=== PATIENT | female | born 1945 | race Caucasian/White ===

== ENCOUNTER 2017-09-14 18:57 | Emergency (ER) | payer MEDICARE, SELFPAY ==
[2017-09-14 18:59] VITALS: BP 187/105; PULSE 119; RESP 17; TEMP 36.2; O2SAT 98; BMI 32.2
[2017-09-14] MEDS: cloNIDine HCl 0.1 MG Tablet 0.2 MG PO (19:34)
[2017-09-14] MEDS: Tetracaine 0.5% Ophthalmic Bottle 1 DRP EACH EYE (20:18)
[2017-09-14 20:21] VITALS: BP 121/83; PULSE 89; RESP 16
--- NOTE | 2017-09-14 20:42 | ED.VISSUMM ---
- ER Visit Summary Date of Service: 09/14/17 Chief Complaint: Elevated blood pressure and eye pain History of Present Illness: The patient is a 72 F presenting with elevated blood pressure and bilateral eye pain. Patient states she was recently started on hydrochlorothiazide on August 30. Yesterday she began to have gradual onset headache associated with bilateral eye pain. She denies vision changes. She denies current headache. She states she has pain in both of her eyes. She states she read the label on the hydrochlorothiazide side effects and was concerned about possibility of eye problems related to the medication. She denies chest pain or shortness of breath. Denies other complaints. Physical Examination: Vitals are stable. Blood pressure 187/105. Patient is afebrile. Alert no acute distress. HEENT exam is unremarkable. PERRLA, EOMI. Neck is supple. Lungs are clear and equal bilaterally. Heart is regular rate and rhythm. Abdomen is soft nontender nondistended. Extremities are unremarkable. Skin is warm and dry. No focal neurologic deficit. Remainder of exam is unremarkable. Emergency Department Course and Treatment: Patient was given clonidine p.o. Her repeat blood pressure was 121/83. Tetracaine was instilled into her bilateral eyes and she had complete resolution of her pain. Intraocular pressures were checked and on the right are 8-13, left were 8-11. Her visual acuity was 20/40 on the right, 20/50 on the left, 20/25 bilaterally. She states typically her left eye is worse than the right. She denies any change from her baseline vision. She feels improved following tetracaine. Discussed with Dr. Ramirez. He states likely the hydrochlorothiazide has caused dry eyes. She is advised to use saline eyedrops. Advised to return to ED for any worsening vision or complaints. Advised to follow-up with Dr. Ramirez. Advised to follow-up with her primary care physician for blood pressure recheck. Disposition: Discharge home Impression: Hypertension, bilateral eye pain This note was generated with [employer] dictation software. It may contain incorrect words, spelling, and punctuation that were not noted in review of the chart prior to signing ED Disposition - Plan for ED Patient: Chief Complaint: Hypertension Referrals: Trudy Mcgowan MD [Primary Care Provider] -
--- NOTE | 2017-09-14 20:46 | ED.DEP ---
ED Disposition - Plan for ED Patient: Chief Complaint: Hypertension Instructions: ED HTN Established Referrals: Trudy Mcgowan MD [Primary Care Provider] - Honorio Ramirez MD [STAFF PHYSICIAN] -
[2017-09-14 20:50] VITALS: RESP 16
== END 2017-09-14 20:53 | disposition home or self-care (01) ==
LOC: ED 19:55
PROVIDERS: Emergency Provider Emergency Medicine; Family Provider Internal Medicine; PCP Internal Medicine
DX: H57.13 Ocular pain, bilateral (principal); I10 Essential (primary) hypertension; Z79.899 Other long term (current) drug therapy; Z72.0 Tobacco use
CPT/HCPCS: 99283

== ENCOUNTER → 2018-03-05 10:36 | Outpatient (CLI) | payer MEDICARE, SELFPAY | PROVIDERS: Family Provider Internal Medicine; PCP Internal Medicine; Visit Provider Nurse Practitioner | DX: R42 Dizziness and giddiness (principal) | CPT/HCPCS: 76770 ==

== ENCOUNTER → 2018-03-07 09:31 | Outpatient (CLI) | payer MEDICARE, SELFPAY ==
--- NOTE | 2018-03-07 09:48 | CDU_ITS ---
Reason For Study: dizziness Rt. Velocities/BP Lt. Velocities/BP Prox CCA 77.4/18.2 cm/sec. Prox CCA 75.0/17.3 cm/sec. Mid CCA 79.2/19.9 cm/sec. Mid CCA 89.7/27.0 cm/sec. Dist CCA 70.9/24.6 cm/sec. Dist CCA 83.8/24.6 cm/sec. Prox ICA 85.0/24.0 cm/sec. Prox ICA 73.9/20.5 cm/sec. Mid ICA 95.0/32.2 cm/sec. Mid ICA 79.2/29.3 cm/sec. Dist ICA 83.8/28.7 cm/sec. Dist ICA 82.1/33.7 cm/sec. Rt. ICA/CCA = 95.0/79.2=1.19. Lt. ICA/CCA = 82.1/89.7=0.92. Prox ECA 79.7/11.7 cm/sec. Prox ECA 83.8/13.5 cm/sec. Rt. Vert. 64.0/19.6 cm/sec. Lt. Vert. 54.8/20.7 cm/sec. Right Extracranial There is intimal thickening but no significant atherosclerotic plaque noted in the right common carotid artery. There is homogeneous, smooth atherosclerotic plaque noted in the right internal carotid artery. There is no significant atherosclerotic plaque noted in the right external carotid artery. Antegrade flow is noted in the right vertebral artery. There is homogeneous, smooth atherosclerotic plaque noted in the right bulb. Left Extracranial There is intimal thickening but no significant atherosclerotic plaque noted in the left common carotid artery. There is heterogeneous, smooth atherosclerotic plaque noted in the left internal carotid artery. There is intimal thickening but no significant atherosclerotic plaque noted in the left external carotid artery. Antegrade flow is noted in the left vertebral artery. Procedure Carotid Duplex [id number]. The exam was diagnostic. Exam performed in department. Interpretation Summary Mild (<50%) stenosis right extracranial internal carotid. Mild (<50%) stenosis left extracranial internal carotid. Flow within the vertebral arteries is antegrade bilaterally. Ordering Physician: Shaneka Anderson Referring Physician: Shaneka Anderson Performed By: Noemy Feng, GENNA, RVT
== END ==
PROVIDERS: Family Provider Internal Medicine; PCP Internal Medicine; Visit Provider Internal Medicine
DX: R42 Dizziness and giddiness (principal); R07.89 Other chest pain
CPT/HCPCS: 93306; 93880

== ENCOUNTER → 2018-03-17 06:05 | Outpatient (CLI) | payer MEDICARE, SELFPAY ==
--- NOTE | 2018-03-17 06:11 | RDU_ITS ---
Reason For Study: HTN Right Renal Artery Left Renal Artery Right renal artery ostium 89/27 Left renal artery ostium 94/27 RSV/EDV. PSV/EDV. Right renal artery proximal 83/26 Left renal artery proximal PSV/EDV PSV/EDV. 99/27 . Right renal artery mid 174/44 Left renal artery mid 86/25 PSV/EDV. PSV/EDV . Right renal artery distal 69/21 Left renal artery distal 62/21 PSV/EDV. PSV/EDV. Right RAR 2.60. Left RAR 1.48. Right Renal Parenchyma Left Renal Parenchyma Upper Pole Medula 35/14 PSV/EDV. Left upper pole medulla 12/4 Right upper pole medulla EDR 0.4 . PSV/EDV . Right upper pole medulla R.I. Left upper pole medulla EDR 0.33 . 0.59 . Left upper pole medulla R.I. 0.67 . Upper Mundo Cortx 14/6 PSV/EDV. UP Cortex 26/7 PSV/EDV. Right upper pole cortex EDR 0.43 . Left upper pole cortex EDR 0.27 . Right upper pole cortex R.I. 0.62 . Left upper pole cortex R.I. 0.74 . Right lower Pole medulla 25/7 Left lower Pole medulla 38/12 PSV/EDV . PSV/EDV . Right lower pole medulla EDR 0.28 . Left lower pole medulla EDR 0.32 . Right lower pole medulla R.I. Left lower pole medulla R.I. 0.70 . 0.70 . Lower Pole Cortx 21/6 PSV/EDV. Lower Pole Cortex 15/7 PSV/EDV. Left lower pole cortex EDR 0.29 . Right lower pole cortex EDR 0.47 . Left lower pole cortex R.I. 0.72 . Right lower pole cortex R.I. 0.56 . Left Renal Hilar Right Renal Hilar LT Hilar avg 68/20 PSV/EDV . Right Hilar avg 56/16 PSV/EDV. Left hilar acceleration time 37 Right hilar acceleration time 29 m/sec. m/sec. Left Renal Dimensions Right Renal Dimensions Left kidney size 9.8 cm . Right kidney size 9.1 cm . Left cortical dimension 1.36 cm . Right cortical dimension 1.41 cm . Aorta Proximal abdominal aorta 1.88cm x 1.87 cm . Proximal abdominal aorta peak systolic velocity is 67 cm/sec . Distal abdominal aorta 1.42cm x 1.48 cm . Distal abdominal aorta peak systolic velocity is 135 cm/sec . Interpretation Summary Dimensions of the intra-abdominal aorta appear normal, without evidence of aneurysmal dilatation. Renal artery velocities are bilaterally normal. Acceleration times are normal bilaterally. Renal- aortic ratios are also bilaterally normal. There is no evidence of hemodynamically significant renal artery stenosis on either side. Cortical dimensions are bilaterally normal. Kidneys appear normal in size bilaterally. Ordering Physician: Stephanie Carson Referring Physician: Shaneka Anderson Performed By: Jenna Alvarez, RDCS, RVT
--- NOTE | 2018-03-17 16:13 | STRESSREP ---
Stress Test Report Exercise myocardial perfusion stress test. 72-year-old lady with a history of chest pain. Stress protocol: Resting EKG demonstrates normal sinus rhythm with rate of 62 bpm resting blood pressure 730/90 mmHg. The patient exercised according to regular Kev protocol for total duration of 5 minutes completing 2 minutes into stage II of the Kev protocol the maximum heart rate attained was 141 bpm which was 96% of maximum predicted heart rate the maximum workload was 7 metabolic equivalents. Patient maintained sinus rhythm throughout the recording. At rest there were no ST or T-wave changes noted suggest ischemia peak exercise no ST or T-wave changes were noted suggest ischemia. No clinical angina was noted. The test was terminated due to leg fatigue. Myocardial perfusion protocol. 11.9 mCi of technetium 99m sestamibi was injected at rest. The patient exercised according to regular Kev protocol for 5 minutes. At peak exercise 33.6 mCi of technetium 99m sestamibi was injected stress images were obtained stress and rest images were reconstructed and compared in the short axis vertical long horizontal long axis. Gated images were also obtained Perfusion SPECT analysis: Review of the stress images demonstrate normal uptake of tracer noted in all areas of the myocardium. The resting images similarly demonstrate normal uptake of tracer noted in all areas of the myocardium. No areas of reversibility are noted suggest ischemia no previous infarct is noted. Gated SPECT analysis: The gated ejection fraction is hyperdynamic at 87%. Conclusion: Normal exercise myocardial perfusion stress test at a moderate workload. Good functional capacity.
== END ==
PROVIDERS: Family Provider Internal Medicine; PCP Internal Medicine; Visit Provider Nurse Practitioner
DX: I10 Essential (primary) hypertension (principal); R07.89 Other chest pain; R42 Dizziness and giddiness
CPT/HCPCS: 78452; 93017; 93975; A9500; A4216

== ENCOUNTER → 2018-04-03 12:28 | Outpatient (CLI) | payer MEDICARE, SELFPAY ==
--- NOTE | 2018-04-03 12:32 | CT_ITS ---
STUDY: LOW DOSE CT LUNG CANCER SCREENING REASON FOR EXAM: Female, 72 years old. COPD, history of tobacco use. Lung cancer screening. RADIATION DOSAGE (If Supplied By Facility): CTDIvol = ( 3.02 ) mGy, DLP = ( 93.65 ) mGycm TECHNIQUE: No contrast was administered. Low dose technique was utilized (average mAS-38 and kVp 120). 1.25 mm axial source images with a slice interval of 1.25-mm were reconstructed in lung windows. Coronal and sagittal 2-D MPR. Nodule measured using lung windows on PACS and/or independent workstation with automated measurement of minimum and maximum diameter. Nodule measurement reported as average diameter rounded to the nearest whole number. Growth is defined as an increase ins size of greater than 1.5 mm. COMPARISON: CT abdomen and pelvis 04/01/2017. FINDINGS: Total lung nodules (excluding granulomas): Right upper lobe lateral subpleural pulmonary nodule series 2 image 64, 3.2 mm. There are several tiny calcified pulmonary nodules bilaterally, old granulomatous disease. There are no visible noncalcified pulmonary nodules on the left. Emphysema: There are relatively mild features of centrilobular emphysema predominating at the lung apices, with generalized hyper inflation of the lungs suggesting underlying COPD. Endobronchial lesion: There is mild bronchial wall thickening in both the upper and lower lungs, likely chronic inflammatory. No endobronchial lesions. Aorta: Nondilated. Mild arch atherosclerosis. Coronary arteries: Coronary calcifications of the proximal LAD, none visible in the RCA or circumflex distributions. Heart: Normal heart size without pericardial effusion. Pulmonary artery: Nondilated. Mediastinal nodes: No mediastinal or hilar mass or lymphadenopathy. Normal esophagus. Other chest and abdominal findings: Upper abdomen, body wall soft tissues, supraclavicular soft tissues and osseous structures exhibit no acute process. CT/Low Dose CT Lung Screening IMPRESSION: Solitary noncalcified pulmonary nodule in the right. Less than 6 monitor. ACR Lung RADS Category 2 (benign appearance, less than 1% chance of malignancy). Continue annual screening low dose CT. Coronary atherosclerosis. Centrilobular emphysema. IMPORTANT NOTES FOR USE: ACR Lung-RADS Version 1.0 Assessment Categories Release Date: October 26, 2013 Category: Coded 0-4 bases on nodule(s) with highest degree of suspicion. Negative screen is defined as categories 1 and 2; a positive screen is defined as categories 3 and 4. Category 3 and 4A nodules that are unchanged on interval CT should be coded as category 2, and individuals returned to screening in 12 months. Category 4X: Category 3 or 4 nodules with additional imaging findings that increase the suspicion of lung cancer, such as spiculation, GGN that doubles in size in 1 year, enlarged lymph notes, etc. Category Modifiers: S (significant finding unrelated to lung cancer) and C (prior history of treated lung cancer) may be added to the 0-4 Lung-RADS Electronically Signed: Rodney Miller, at 12:56 EDT Tel , Service support ,
--- NOTE | 2018-04-03 15:01 | PFTCOMP ---
COMPLETE PULMONARY FUNCTION TEST INTERPRETATION Brief HPI: Patient is a 72 year old female, currently under the care of Dr. Anderson, who presents to [facility] for complete pulmonary function tests secondary to diagnosis of COPD. Respiratory therapist reports good effort and reproducible results. Interpretation: Forced expiration spirometry shows a mild large airways obstructive ventilatory defect with an FEV1 of 84% predicted. There is no significant bronchodilator response by ATS criteria. Spirograms are of good quality and plateau slowly, indicating slowly emptying areas of the lungs. The respiratory flow volume loop shows decreased expiratory flow rates at all lung volumes consistent with airway obstruction. Lung volumes by body plethysmography show a normal total lung capacity at 4.89 L, 117% predicted. FRC and RV are elevated out of proportion. Lung volume measurements are consistent with hyperinflation and air-trapping. Diffusion capacity by carbon monoxide is at the lower limit of normal at 59% predicted. The airway resistance is elevated. No previous pulmonary function tests were available for review. Impression: Irreversible mild large airways obstructive ventilatory defect with a reduction in diffusing capacity, resulting in air trapping with hyperinflation, and consistent with patient's diagnosis of COPD.
== END ==
PROVIDERS: Family Provider Internal Medicine; PCP Internal Medicine; Referring Provider Internal Medicine; Visit Provider Internal Medicine
DX: Z87.891 Personal history of nicotine dependence (principal); J44.9 Chronic obstructive pulmonary disease, unspecified; I27.20 Pulmonary hypertension, unspecified
CPT/HCPCS: 94060; 94726; 94729; G0297

== ENCOUNTER → 2018-10-02 15:14 | Outpatient (CLI) | payer MEDICARE, SELFPAY ==
--- NOTE | 2018-10-02 15:17 | BI_ITS ---
MAMMOGRAPHY - BILATERAL SCREENING REASON FOR EXAM: Female, 73 years old. Routine annual screening examination. PERTINENT HISTORY: Non-contributory. Remote bilateral excisional breast biopsies. TECHNIQUE: Digital bilateral breast devaughn (3D mammographic acquisition) in the CC and MLO projections. 2-D mediolateral oblique (MLO) and craniocaudad (CC) views of both breasts were obtained. CAD: Full Field Digital Mammography with Computer Added Detection was performed. COMPARISON: Comparison is made with prior outside examination dated August 21, 2017. FINDINGS: Breast Composition: The breasts are almost entirely fatty. There are no dominant masses or suspicious calcifications. Stable appearance of the benign axillary lymph nodes. No other significant abnormalities are identified. There has been no significant change since the prior study. BI/SCREENING MAMM (CAD), BILAT IMPRESSION: Stable bilateral screening mammogram. Yearly follow-up mammogram recommended. (A) ASSESSMENT CATEGORY: BIRADS Category 2: Benign. A letter regarding these results will be sent to the patient by the facility within 30 days. Approximately 10% of breast cancers are not detected by mammography. A normal mammogram should not delay biopsy of a clinically suspicious abnormality. [id number] Electronically Signed: Javon Matute, at 8:18 EDT , Service support ,
== END ==
PROVIDERS: Family Provider Internal Medicine; PCP Internal Medicine; Referring Provider Internal Medicine; Visit Provider Internal Medicine
DX: Z12.31 Encounter for screening mammogram for malignant neoplasm of breast (principal)
CPT/HCPCS: 77063; 77067

== ENCOUNTER → 2019-05-07 | Outpatient (CLI) | payer MEDICARE, SELFPAY ==
[2018-05-01 10:35] VITALS: BMI 32.2
--- NOTE | 2019-05-07 13:30 | PFT ---
INTRODUCTION: The patient is a 73-year-old female that presents for pulmonary function studies secondary to a diagnosis of COPD. Respiratory therapy reports good patient effort. Bronchodilators were used during testing. INTERPRETATION: Forced expiration spirometry demonstrates the presence of a mild large airways obstructive ventilatory defect. There was no significant response to aerosolized bronchodilators, based upon strict ATS criteria. Spirograms are of fair quality and plateau gradually indicating slow emptying of the lungs. Body plethysmography was performed and reveals an elevated TLC and RV, indicative of underlying hyperinflation and air trapping. Diffusing capacity by single breath CO is reduced at 56% of predicted. IMPRESSION: Irreversible mild large airways obstructive ventilatory defect with associated hyperinflation, air trapping and reduction in diffusing capacity.
== END | disposition home or self-care (01) ==
LOC: PSN 09:33
PROVIDERS: Family Provider Internal Medicine; PCP Internal Medicine; Referring Provider Internal Medicine Critical Care Medicine; Visit Provider Internal Medicine Critical Care Medicine
DX: J44.9 Chronic obstructive pulmonary disease, unspecified (principal)
CPT/HCPCS: 94060; 94726; 94729

== ENCOUNTER → 2019-05-09 | Outpatient (CLI) | payer MEDICARE, SELFPAY ==
--- NOTE | 2019-05-09 07:00 | CT_ITS ---
STUDY: CT CHEST WITHOUT CONTRAST REASON FOR EXAM: Female, 73 years old. Hypertension, lung nodule RADIATION DOSAGE (If Supplied By Facility): CTDIvol = ( 13.5 ) mGy, DLP = ( 468.88 ) mGycm TECHNIQUE: Transaxial imaging was performed without the administration of intravenous contrast material. Multiplanar coronal and sagittal images were reformatted. Individualized dose optimization techniques were used for this CT. COMPARISON: 04/03/2018 FINDINGS: Lung windows show that a previously described right upper lobe subpleural nodule measuring 3.2 mm has anything decreased in size since the previous study. It is measuring 1 mm on the current study seen on axial images 35 no other suspicious noncalcified mass or nodule. No organized infiltrate or effusion. The lungs are otherwise normal. There is no demonstrated pleural abnormality. Normal heart and pericardium. There are calcifications of the coronary arteries. Normal mediastinum. Normal hilar regions. Normal unenhanced pulmonary arteries. Normal aorta arch and descending thoracic aorta. There are multi-level degenerative changes of the thoracic spine. There is no demonstrated abnormality of the visualized upper abdomen. CT/Chest without Contrast IMPRESSION: A previously described right upper lobe nodule has if anything decreased in size since the previous study. No acute pulmonary process Calcified coronary vessels Degenerative bony changes Electronically Signed: Dmitri Wesley MD at 8:00 EST , Service support ,
== END | disposition home or self-care (01) ==
LOC: CT 07:01
PROVIDERS: Family Provider Internal Medicine; PCP Internal Medicine; Referring Provider Internal Medicine Critical Care Medicine; Visit Provider Internal Medicine Critical Care Medicine
DX: J44.9 Chronic obstructive pulmonary disease, unspecified (principal)
CPT/HCPCS: 71250

== ENCOUNTER 2019-08-08 13:19 | Emergency (ER) | payer MEDICARE, SELFPAY ==
[2019-05-12 10:04] VITALS: BMI 32.5
[2019-08-08 13:19] VITALS: BP 148/103; PULSE 102; RESP 18; TEMP 36.7; O2SAT 99; BMI 31.4
--- NOTE | 2019-08-08 14:13 | ED.VIS.GEN ---
History of Present Illness Chief Complaint: Edema Detail of Chief Complaint: Swelling and pain over left parotid gland Informant: Patient Onset: Yesterday Context: Sudden Onset Timing: Continuous Quality: Pain and swelling Location: Left preauricular area, parotid gland Current Severity: Mild Maximum Severity: Moderate Worsened by: Eating Relieved by: Nothing Associated Symptoms: None Narrative: Patient is a 74-year-old woman who presents with abrupt onset of pain and swelling localized over the left parotid gland. She denies fever chills. Denies difficulty opening closing her mouth. She denies change in voice. She is not on TAYLA inhibitor. Complains of blood from left ear. She did use a Q-tip prior to the bleeding. Prior similar symptoms: No Recent Illness/Hospitalization: No - Past Medical History (1) Chest pain Status: Acute (2) COPD (chronic obstructive pulmonary disease) Status: Chronic (3) Carotid stenosis, bilateral Status: Chronic (4) Diastolic dysfunction Status: Chronic (5) Graves disease Status: Chronic (6) HTN (hypertension), benign Status: Chronic (7) Pulmonary HTN Status: Chronic (8) Smoker Status: Chronic (9) History of tonsillectomy Status: Resolved (10) History of tubal ligation Status: Resolved (11) cataract surgery Status: Resolved Past Medical History - Allergies and Home Meds Allergies/Adverse Reactions: Allergies bupropion [From Zyban] Allergy (Intermediate, Verified 08/08/19 13:21) Rash hydrochlorothiazide Allergy (Intermediate, Verified 08/08/19 13:21) vision changes nabumetone Allergy (Intermediate, Verified 08/08/19 13:21) Rash tramadol [From Ultram] Allergy (Intermediate, Verified 08/08/19 13:21) Rash Primary Care Physician: Shaneka Anderson DO [Primary Care Provider] - Prior records reviewed: Yes Lives: Alone Smoking Status: Current every day smoker Alcohol: None Drugs: None Review of Systems General: Denies: Chills, Fever, Malaise, Subjective, Sweats Eyes: Denies: Visual changes - bilaterally, Blurred Vision - bilaterally, Diplopia ENT: Denies: Bilateral ear pain, Left ear pain, Right ear pain, Rhinorrhea, Sore throat Cardiovascular: Denies: Chest pain, Palpitations Respiratory: Denies: Dyspnea, Cough, Dyspnea on exertion Gastrointestinal: Denies: Nausea, Vomiting Skin: Denies: Rash, Abscess, Abrasions Hematologic: Denies: Easy bruising, Easy bleeding Allergy: Denies: Uticaria, Swelling of the mouth, Swelling of the tongue Physical Exam Vital Signs/Narrative: Vital Signs Temp Pulse Resp BP Pulse Ox 08/08/19 13:19 98.1 F 102 H 18 148/103 H 99 Inital Vital Signs reviewed: Yes General: Well nourished, Well developed, No Acute Distress Head: Normocephalic, Atraumatic Eyes: Perrl. Negative for: Pale conjunctiva, Scleral icterus ENT: Moist mucous membranes, No rhinorrhea, TM's clear, - - There is trauma to the left auditory canal. This is the cause of her bleeding. There is tenderness and swelling over the left parotid. There is no drainage with milking of the parotid noted. Neck: Supple, Nontender, No lymphadenopathy, No JVD, - - He is midline. There is no inspiratory expiratory stridor. Is no evidence of angioedema. Cardiovascular: Regular rate, Regular rhythm, No murmurs, Normal S1, Normal S2 Respiratory: No distress, CTA bilaterally, Chest nontender Neurological: Alert, Oriented x3, Cranial nerves II-XII grossly intact, Normal Strength, Normal Sensation Psychological: Normal affect, Normal Mood Diagnostic/Tx/Re-eval - Medical Decision Making Onset of pain and swelling over the parotid gland suspect patient has sialolithiasis. She was informed the cause of the blood from her left ear is secondary to trauma using a Q-tip. She was referred to ENT. ED Disposition - Plan for ED Patient: Disposition: Home or Assisted Living Diagnosis: Sialolithiasis, Trauma left external auditory canal Referrals: Shaneka Anderson DO [Primary Care Provider] - Juan Carlos Adams MD [STAFF PHYSICIAN] - 3-5 Days Additional Instructions: You have swelling of your left parotid gland. Suspect this is secondary to a stone causing obstruction. Treatment is to suck on lemon drops. The bleeding from your ear is secondary to trauma. Recommend not trying to clean your ear out with Q-tip.
== END 2019-08-08 14:35 | disposition home or self-care (01) ==
LOC: ED 14:26
PROVIDERS: Emergency Provider Emergency Medicine; PCP Internal Medicine
DX: K11.5 Sialolithiasis (principal); J44.9 Chronic obstructive pulmonary disease, unspecified; I10 Essential (primary) hypertension; F17.200 Nicotine dependence, unspecified, uncomplicated; E05.00 Thyrotoxicosis with diffuse goiter without thyrotoxic crisis or storm; Z79.82 Long term (current) use of aspirin; Z79.899 Other long term (current) drug therapy; S09.91XA Unspecified injury of ear, initial encounter; X58.XXXA Exposure to other specified factors, initial encounter; Y93.89 Activity, other specified; Y92.009 Unspecified place in unspecified non-institutional (private) residence as the place of occurrence of the external cause; Y99.8 Other external cause status
CPT/HCPCS: 99282

== ENCOUNTER → 2019-08-11 | Outpatient (CLI) | payer MEDICARE, SELFPAY ==
[2019-08-08 13:19] VITALS: BMI 31.4
== END | disposition home or self-care (01) ==
LOC: LABSPEC 15:16
PROVIDERS: PCP Internal Medicine; Referring Provider Otolaryngology; Visit Provider Otolaryngology
DX: K11.21 Acute sialoadenitis (principal)
CPT/HCPCS: 87070

== ENCOUNTER → 2019-12-03 | Outpatient (CLI) | payer MEDICARE, SELFPAY ==
--- NOTE | 2019-12-03 14:26 | BI_ITS ---
MAMMOGRAPHY - BILATERAL SCREENING REASON FOR EXAM: Female, 74 years old. Routine annual screening examination. PERTINENT HISTORY: Non-contributory. TECHNIQUE: Digital bilateral breast odalis (3D mammographic acquisition) in the CC and MLO projections. 2-D mediolateral oblique (MLO) and craniocaudad (CC) views of both breasts were obtained. CAD: Full Field Digital Mammography with Computer Added Detection was performed. COMPARISON: Comparison is made with prior study dated October 02, 2018. FINDINGS: Breast Composition: The breasts are almost entirely fatty. There are no dominant masses or suspicious calcifications. Stable benign appearing bilateral axillary lymph nodes. No other significant abnormalities are identified. There has been no significant change since the prior study. BI/SCREEN MAMM (CAD) W/ODALIS BILAT IMPRESSION: Stable bilateral screening mammogram. Yearly follow-up mammogram recommended. (A) ASSESSMENT CATEGORY: BIRADS Category 2: Benign. A letter regarding these results will be sent to the patient by the facility within 30 days. Approximately 10% of breast cancers are not detected by mammography. A normal mammogram should not delay biopsy of a clinically suspicious abnormality. [id number] Electronically Signed: Javon Matute, at 15:35 EDT , Service support ,
--- NOTE | 2019-12-03 14:29 | BD_ITS ---
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 COMPARISON: None. FINDINGS: Lumbar Spine (L1-L4): g/cm2 (1.450) / T-score (2.4) / Z-score (4.2) Findings are suggestive of normal bone density with a low fracture risk. Left Femur Total: g/cm2 (0.968) / T-score (-0.3) / Z-score (1.5) Left Femoral Neck: g/cm2 (0.783) / T-score (-1.8) / Z-score (0.1) Right Femur Total: g/cm2 (1.002) / T-score (0.0) / Z-score (1.8) Right Femoral Neck: g/cm2 (0.841) / T-score (-1.4) / Z-score (0.6) BD/Dexa Bone Density Study IMPRESSION: The patient is considered osteopenic as outlined below according to World [employer] Organization (WHO) criteria with a moderate fracture risk. Reference Information: The T-score is the number of standard deviations above or below the standard which is normal for young adults at their peak bone mineral density. The World Health Organization (WHO) interprets the T-scores as follows: Above -1 Normal bone density Between -1 and -2.5 Osteopenia Equal to / or below -2.5 Osteoporosis As a practical clinical guideline, osteopenia may be graded as follows: Mild -1 through -1.5 Moderate -1.6 through -2.0 Severe -2.1 through -2.4 The Z-score is the number of standard deviations above or below age-matched controls. A Z-score of less than -1.5 would be considered abnormal. References: 1. NIH Osteoporosis and Related Bone Diseases http://www.osteo.org 2. International Society for Clinical Densitometry http://www.iscd.org 3. National Osteoporosis Foundation http://www.nof.org Electronically Signed: Javon Matute, at 14:55 EDT , Service support ,
--- OUTSIDE RECORDS SUMMARY | 2020-04-17 07:57 | XMS RPT_ITS | CCD ---
:1945 External Reference #:[id number] Author Organization [facility] Care Team Providers Name Role Phone Justin Unavailable Brown Unavailable Messenger Unavailable Unavailable Westley Unavailable Unavailable Jones Unavailable Unavailable Long, L Unavailable Unavailable Ashland Unavailable Unavailable Natalie Iraheta #[id number] Unavailable Justin Unavailable Brown Unavailable Messenger Unavailable Unavailable Westley Unavailable Unavailable Natalie Danielsoster #[id number] Unavailable Chicho Unavailable Unavailable Justin Attending Unavailable Justin Referring Unavailable Justin Consulting Unavailable Gravius Unavailable Unavailable Long, L Unavailable Unavailable Slarb Unavailable Unavailable Long, L Unavailable Unavailable Idris Unavailable Unavailable Jones Unavailable Unavailable Messenger Unavailable Unavailable Lonnie Unavailable Unavailable Gravius Unavailable Unavailable Allergies Reported Allergen Reaction(s) Severity Date of Onset Location Amoxicillin / [facility] Clavulanate Medicine (04294 ) Translations: [ Augmentin *PENICILLINS*] Comment: Nausea, vomiting, diarrhea buPROPion Translations: [ Zyban Rash [facility] *PSYCHOTHERAPEUTIC AND NEUROLOGICAL (73383) AGENTS - MISC.*] hydroCHLOROthiazide Translations: [ [facility] HydroCHLOROthiazide *DIURETICS*] (85602) Comment: vision changes nabumetone Translations: [ Nabumetone Rash [facility] *ANALGESICS - ANTI-INFLAMMATORY*] (49494) traMADol Translations: [ Ultram Rash [facility] *ANALGESICS - OPIOID*] (0302 1) Medications Medication Name Sig Date Prescriber Location Albuterol ProAir HFA 108 (90 11-16-2019 Shaneka Church hensive Internal Base) MCG/ACT Medicine (1302 1) Inhalation Aerosol Solution 2 (two) Puff tid prn for 0 days Quantity: 1 {Inhaler} Refills: 0 Ordered: 16-Nov-2019 Shaneka Anderson DO, DO, Kathleen Start : 16-Nov-2019 Active ProAir HFA 108 (90 Base) 10-03-2018 Ruth Lee Compreh ensive Internal Medicine MCG/ACT Inhalation Aerosol (4469 1) Solution 2 (two) Puff Puff tid prn for 0 days Quantity: 1 {Inhaler} Refills: 0 Ordered: 03-Oct-2018 Jesus FLORESRaymondn Peggy Start : 03-Oct-2018 Active Aspirin Aspirin 81 MG Oral Celi Lolisius Compreh ensive Tablet Chewable daily [employer] al Medicine (81 MG) Active (30590) Azithromycin Zithromax Z-Gage 250 10-11-19 Celi Gravius Compre hensive MG Oral Tablet tad 19 - Internal Medicine Tablet qd for 0 days 10-30-19 (80173) Quantity: 1 {Package} 19 Refills: 0 Ordered: 29-Oct-2018 Gravius FOOD RUNNER, Celi Start : 10-Oct-2018 End : 29-Oct-2018 Discontinued calcium carbonate Calcium Carbonate Celi Gravius Com prehensive 1500 (600 Ca) MG Oral [employer] al Medicine Tablet 1 qd (1500 MG) (55109 ) Active cholecalciferol Vitamin D3 5000 UNIT Celi Gravius Co mprehensive Oral Capsule 2 qd Internal M edicine (5000 UNIT) Active (75282) Dextromethorphan Delsym 30 MG/5ML Oral 10-04-19 Zoya Van Suspension Extended 19 - Internal Medicine Release 1 (one) 11-12-19 (37539) Milliliter Milliliter 19 q12 for 0 days Quantity: 1 {Milliliter} Refills: 0 Ordered: 11-Nov-2018 Zoya Summers RN Start : 03-Oct-2018 End : 11-Nov-2018 Inactive losartan Losartan Potassium 50 03-11-20 Celi Gravius Comp rehensive MG Oral Tablet 1 20 Shaneka Justin Internal Medicine Tablet 1 in am and (59384) 1/2 in pm for 90 days Quantity: 135 {Tablet} Refills: 1 Ordered: 11-Mar-2020 Shaneka Anderson DO, DO, Kathleen Start : 11-Mar-2020 Active Comments: Mail order. Losartan Potassium 50 MG 01-19-2019 Celi Gravius Shaneka Comprehensive Internal Oral Tablet 1 [place] 1 [place] ([address]) am and 1/2 in pm for 90 days Quantity: 135 {Tablet} Refills: 1 Ordered: 19-Jan-2019 Justin CONTRERAS Shaneka Anderson DO Shaneka Start : 19-Jan-2019 Active Comments: Mail order. Losartan Potassium 50 MG 10-29-2018 Shaneka Anderson Compreh ensive Internal Oral Tablet 1 Tablet 1 [place] (18398) am and 1/2 in pm for 90 days Quantity: 135 {Tablet} Refills: 1 Ordered: 29-Oct-2018 Justin CONTRERAS Shaneka Anderson DO Shaneka Start : 29-Oct-2018 Active Comments: Mail order. Losartan Potassium 50 MG 06-04-2018 Zoya Summers Compreh ensive Internal Oral Tablet 1 Table[place] 1 [place] ([address]) am and 1/2 in pm for 90 days Quantity: 135 {Tablet} Refills: 1 Ordered: 04-Jun-2018 Justin CONTRERAS Shaneka Anderson DO Shaneka Start : 04-Jun-2018 Active Losartan Potassium 50 MG 02-26-2018 Stephanie Carson Compreh ensive Internal Oral Tablet 1 Table[place] 1 [place] ([address]) am and 1/2 in pm for 0 days Quantity: 60 {Tablet} Refills: 3 Ordered: 26-Feb-2018 Stephanie Carson CNP Start : 26-Feb-2018 Active Comment: Mail order. NITROFURANTOIN, Macrobid 100 MG 10-03-2018 - Stephanie Skinner sive MACROCRYSTALS / Oral Capsule 1 10-06-2018 Internal M edicine Nitrofurantoin, (one) Capsule (90559) Monohydrate bid for 3 days Quantity: 6 {Capsule} Refills: 0 Ordered: 03-Oct-2018 Stephanie Carson CNP Start : 03-Oct-2018 End : 06-Oct-2018 Inactive predniSONE predniSONE 10 MG 10-03-2018 Ronnie Vicenteensi ve Oral Tablet 1 11-11-2018 Messenger Internal Medic ine (one) Tablet (63629) Tablet TAD for 0 days Quantity: 9 {Tablet} Refills: 0 Ordered: 11-Nov-2018 Zoya Summers RN Start : 03-Oct-2018 End : 11-Nov-2018 Inactive Comments: 2 daily x 3 days 1 daily x 3 days with food Comment: 2 daily x 3 days 1 daily x 3 days with food thyroxine Levothyroxine Sodium 12-01-2019 Bonnie Wallace Compreh ensive Internal 100 MCG Oral Tablet 1 Shaneka Justin Med icine (79998) Tablet qd for 90 days Quantity: 90 {Tablet} Refills: 1 Ordered: 01-Dec-2019 Justin DOShaneka DOAnuShaneka Start : 01-Dec-2019 Active Comments: Mail order. Levothyroxine Sodium 88 03-12-2019 Bonnie Steverb Shaneka Co mprehensive Internal MCG Oral Tablet 1 Tablet Justin Medicin e (36294) qd for 90 days Quantity: 90 {Tablet} Refills: 1 Ordered: 12-Mar-2019 Shaneka Anderson DO, DO, Kathleen Start : 12-Mar-2019 Active Comments: Mail order. Levothyroxine Sodium 88 10-21-2018 Zoya Vicentee nsive Internal MCG Oral Tablet 1 Tablet Shaneka Justin Medicin e (97116) qd for 90 days Quantity: 90 {Tablet} Refills: 1 Ordered: 21-Oct-2018 Shaneka Anderson DO, DO, Kathleen Start : 21-Oct-2018 Active Comments: Mail order. Levothyroxine Sodium 88 06-02-2018 Ruth Barnes nsive Internal MCG Oral Tablet 1 Tablet Medicin e (61245) qd for 90 days Quantity: 90 {Tablet} Refills: 1 Ordered: 02-Jun-2018 Ruth Lee LPN Start : 02-Jun-2018 Active Levothyroxine Sodium 88 Zoya Melina Comprehe nsive Internal MCG Oral Tablet 1 qd (88 Medicin e (93730) MCG) Active Comment: Mail order. Problems Active Problems Category Problem Name Status Date Location Cardiac dysrhythmias Sinus tachycardia Active Co mprehensive Internal Medicine (67046) Comment: stable Cataract Cataract Active Comprehensive I nternal Medicine (62585) Comment: 2014 Chronic obstructive Chronic obstructive Active 10-29-2018 - C omprehensive pulmonary disease and pulmonary disease and Internal Medicine bronchiectasis bronchiectasis (11087) Comment: 60+ yrs of tobacco abuse -1/ 2 pack daily Conditions associated with Dizzy spells Active C omprehensive Internal Medicine dizziness or vertigo (90523) Comment: started losartan 50mg bid ye ster and symptomatic after 2nd dose, light headed quivery and weak Congestive heart failure; Diastolic dysfunction Active [facility] nonhypertensive Medicine (68 682) Comment: asx- so no chg in meds now/ new dx -- plus BB may interfere with breathign will finish pulm w/u- normal stress test Essential hypertension Hypertensive disorder Active [facility] Medicine (87123) Comment: didnt tolerate 100mg of losa rtanhctz made her eyes dryout terriblyworkingon wt loss and exrecise and fol low --if needd can try low dose norvasc Genitourinary symptoms and Blood in urine Active Comprehensive Internal ill-defined conditions Medic ine (78894) Headache; including Headache Active Comprehe nsive Internal migraine Medicine (82823 ) Immunizations and screening Need for prophylactic Active [facility] Internal for infectious disease vaccination and Me dicine (47789) inoculation against influenza Malaise and fatigue Asthenia Active Comprehe nsive Internal Medicine (26917 ) Other bone disease and Osteopenia Active Compr ehensive Internal musculoskeletal deformities Medicine (41865) Comment: pt refused rx - cant afford integrative medicine approach, will do wt bearing exercise, ca++, vit D Other lower respiratory Solitary nodule of lung Active [facility] disease Medicine (87640 ) Comment: cat scan <1% chance of tab sommer Recommend annaul cat scan lungs to follow cat scan <1% chance of tab sommer Recommend annaul cat scan lungs to [id number] disappeared Other lower Cough Active 10-29-2018 - Comprehensive I nternal respiratory disease Medicine (43696) Other nutritional; Body mass index 30+ - Active Comprehensive Internal endocrine; and obesity Medicine (979 62) metabolic disorders Pulmonary heart Pulmonary hypertension Active Co mprehensive Internal disease Medicine (83321 ) Comment: new dx-- seing Dr Peres may 01 Residual codes; Postmenopausal state Active Comp rehensive Internal unclassified Medicine (68824 ) Comment: due 2020 Substance-related disorders Smoker Active [facility] Medicine (39811) Thyroid disorders Graves' disease Active Compreh ensive Internal Medicine (13629) Comment: last lab 02/15 by old Unclassmarie BMI 31.0-31.9,adult Active Comprehe nsive Internal Medicine (91605) Unclassified Active Comprehensive I nternal Medicine (96861) Unclassified BMI 32.0-32.9,adult Active Comprehe nsive Internal Medicine (26927) Unclassified Carotid stenosis, bilateral Active [facility] Medicine (27264) Unclassified Lung nodule, solitary Active Compre [facility] Internal Medicine (96087) Unclassified Abnormal renin secretion Active [facility] prehensive Internal Medicine (35597) Comment: renal artery scan pending Unclassified Needs influenza immunization Active [facility] Medicine (82283) Unclassified Immunization not carried out Active [facility] Medicine because of patient refusal ( 54559) Unclassified Abnormal TSH Active Comprehensive I nternal Medicine (64461) Unclassified Pulmonary HTN Active [facility] Medicine (70327) Past or Other Problems Category Problem Name Status Date Location Nonspecific chest Atypical chest pain Completed 10-29-2018 - [facility] prehensive Internal pain Medicine (21139 ) Occlusion or stenosis Bilateral carotid C omprehensive Internal of precerebral artery stenosis Medicine ( 21935) arteries Comment: new dx -- start baby asa adali ly-- pt refused statin new dx -- start baby asa adali ly-- pt refused statin03/2018 last dopplers Unclassified Deliveries (Parity) Comprehe nsive Internal Medicine (28010) Comment: 2. Unclassified Influenza vaccination Compre [facility] Internal Medicine declined (Renamed from (0001 1) Refused influenza vaccine) Unclassified High serum renin Comprehensi ve Internal Medicine (45888) Unclassified [facility] (25003[facility] Comment: pt refused scope and cards a nd cologard Unclassified Pregnancies () [facility] Internal Medicine (95465) Comment: 3. Unclassified Patient encounter status Completed [facility] prehensive Internal Medicine (49038) Comment: up tp date Unclassified Unspecified Diagnosis Compre [facility] Internal Medicine (49901 ) Unclassified Annual Medicare Phyiscal Completed [facility] prehensive Internal WITHOUT abnormal findings Me dicine (08885) (Renamed from Encounter for general adult medical examination without abnormal findings) Unclassified Postmenopausal (Renamed from Completed Comprehensive Internal Postmenopausal status) Medic ine (83383) Unclassified Encounter for annual general Completed Comprehensive Internal medical examination with Med icine (57279) abnormal findings in adult Unclassified UTI symptoms Comprehensive I nternal Medicine (79070 ) Unclassified Chest pain, atypical Compreh ensive Internal Medicine (13426 ) Unclassified Dizzy spells Comprehensive I nternal Medicine (45240 ) Unclassified Abortions/Miscarriages Compr ehensive Internal Medicine (39166 ) Comment: 1. Results Result Name Value Range Unit Interpretation Flag Date Location tsh (thyroid stimulating hormone) (20364 ) Ordered By: Base Loader on 2020-03-30 TSH Qn 1.270 0.450-4.500 {uIU/mL} Normal 03-30-2020 Compreh ensive Internal Medicine (79126) Comment: PATIENT WAS FASTINGPERFORMED BY: [facility] Haenbb9833 [place] [facility] [place] [id number] t4, free (thyroxine) (03807) Ordered By: Base Loader on 2020-03-30 Free T4 [Mass/Vol] 1.43 0.82-1.77 ng/dL Normal 03-30-2020 [facility] Medicine ( 33956) Comment: PATIENT WAS FASTINGPERFORMED BY: [facility] Aavxdx0299 [address] [facility] [id number] metabolic panel, comprehensive (21694) Ordered By: Base Loader on 2020-03-30 Albumin [Mass/Vol] 4.4 3.7-4.7 g/dL Normal 03-30-2020 [facility] Medicine (90411) Comment: PATIENT WAS FASTINGPERFORMED BY: [facility] Nbboat9541 [facility] [id number] Information: 040693,[id number] Albumin/Globulin [Mass 1.9 1.2-2.2 1 Normal 020 Comprehensive Internal ratio] Medicine ( 95881) Comment: PATIENT WAS FASTINGPERFORMED BY: [facility] Pjaial1985 [address] [facility] [id number] Information: 755307,[id number] ALP [Catalytic 89 39-117 [iU]/L Normal 03-30-2020 Comp rehensive Internal activity/Vol] Medici ne (73879) Comment: PATIENT WAS FASTINGPERFORMED BY: [facility] Qgexpm2691 [address] [facility] [id number] Information: 878435,W81031 ALT [Catalytic 13 0-32 [iU]/L Normal 03-30-2020 Comp rehensive Internal activity/Vol] Medici ne (12577) Comment: PATIENT WAS FASTINGPERFORMED BY: [facility] Ibohkh0395 [place] [facility] [place] [id number] Information: 710371,M80601 AST [Catalytic 20 0-40 [iU]/L Normal 03-30-2020 Comp rehensive Internal activity/Vol] Medici ne (64158) Comment: PATIENT WAS FASTINGPERFORMED BY: [facility] Jnnixv3759 [address] [facility] [id number] Information: 089881,I78454 Bilirubin [Mass/Vol] 0.4 0.0-1.2 mg/dL Normal 0 [facility] Internal Medicine ( 16593) Comment: PATIENT WAS FASTINGPERFORMED BY: [facility] Valfpk6757 [address] [facility] [id number] Information: [id number] Calcium [Mass/Vol] 9.3 8.7-10.3 mg/dL Normal 03-30-2020 [facility] Internal Medicine ( 94410) Comment: PATIENT WAS FASTINGPERFORMED BY: [facility] Rtbdos2838 [facility] [id number] Information: 144853,[id number] Chloride [Moles/Vol] 100 96-106 mmol/L Normal 0 [facility] Internal Medicine ( 77731) Comment: PATIENT WAS FASTINGPERFORMED BY: [facility] Mksgot7333 [facility] [id number] Information: 250250,H44534 CO2 [Moles/Vol] 26 20-29 mmol/L Normal 03-30-2020 [facility] prehensive Internal Medicine (65533) Comment: PATIENT WAS FASTINGPERFORMED BY: [facility] Ofjfkv4436 [address] [facility] [id number] Information: 863912,[id number] Creatinine [Mass/Vol] 0.79 0.57-1.00 mg/dL Normal 03-30-20 20 [facility] Internal Medicine ( 54959) Comment: PATIENT WAS FASTINGPERFORMED BY: [facility] Zhwfij2481 [address] [facility] [id number] Information: 638921,T78851 GFR/1.73 sq M predicted 84 mL/min/1.73 Normal 03-03 Comprehensive Internal among blacks CKD-EPI Medicine (18970) (S/P/Bld) [Vol rate/Area] Comment: PATIENT WAS FASTINGPERFORMED BY: CB [facility] Tlkgbo4294 [facility] [id number] Information: 588625,G53983 GFR/1.73 sq M predicted 73 mL/min/1.73 Normal 03-03 [facility] Internal among non-blacks CKD-EPI Medicine (53005) (S/P/Bld) [Vol rate/Area] Comment: PATIENT WAS FASTINGPERFORMED BY: CB [facility] Wodgnl7928 [facility] [id number] Information: 843602,X27059 Globulin (S) [Mass/Vol] 2.3 1.5-4.5 g/dL Normal 2019 [facility] Medicine ( 32947) Comment: PATIENT WAS FASTINGPERFORMED BY: CB [facility] Lxudvi6096 [facility] [id number] Information: 310270,U28055 Glucose [Mass/Vol] 94 65-99 mg/dL Normal 03-30-2020 [facility] Medicine (36729) Comment: PATIENT WAS FASTINGPERFORMED BY: CB [facility] Hzxhuu7034 [facility] [id number] Information: 270336,O37517 Potassium [Moles/Vol] 4.6 3.5-5.2 mmol/L Normal 03-30-20 [facility] Medicine ( 29005) Comment: PATIENT WAS FASTINGPERFORMED BY: CB [facility] Wheukd5070 [facility] [id number] Information: 119686,R74583 Protein [Mass/Vol] 6.7 6.0-8.5 g/dL Normal 03-30-2020 [facility] Medicine (84956) Comment: PATIENT WAS FASTINGPERFORMED BY: CB [facility] Uyvnde4796 [facility] [id number] Information: 421684,P36077 Sodium [Moles/Vol] 140 134-144 mmol/L Normal 03-30-2020 [facility] Medicine ( 41681) Comment: PATIENT WAS FASTINGPERFORMED BY: MARINA [facility] Itexjn5235 [facility] [id number] Information: 819732,[id number] Urea nitrogen [Mass/Vol] 8 8-27 mg/dL Normal 03-30 [facility] Medicine ( 12739) Comment: PATIENT WAS FASTINGPERFORMED BY: [facility]CoZuni HospitalYbafpe7160 [facility] [id number] Information: 050983,[id number] Urea nitrogen/Creatinine [Mass 10 - 1 Abnormal 03-30-2020 Comprehensive Internal ratio] Medicine ( 34765) Comment: PATIENT WAS FASTINGPERFORMED BY: LabChe[place] 5700970 [facility] [id number] Information: 099427,[id number] lipid panel (71597) Ordered By: Base Loader on 2020-03-30 Cholesterol [Mass/Vol] 195 100-199 mg/dL Normal 020 [facility] Medicine ( 14984) Comment: PATIENT WAS FASTINGPERFORMED BY: [facility]6370 [facility] [id number] Cholesterol in HDL 58 mg/dL Normal 03-30-2020 [facility] [Mass/Vol] Medicine (38255) Comment: PATIENT WAS FASTINGPERFORMED BY: [facility] Uzndzq9634 [facility] [id number] Cholesterol in 1.9 0.0-3.2 {ratio} Normal 03-30-2020 Comp rehensive Internal LDL/Cholesterol in HDL Medicine (03534) [Mass ratio] Comment: LDL/HDL Ratio Men Women 1/2 Avg.Risk 1.0 1.5 Avg.Risk 3.6 3.2 2X Avg.Risk 6.2 5.0 3X Avg.Risk 8.0 6.1 PATIENT WAS FASTINGPERFORMED BY: [facility] Tgcubk5560 [facility] [id number] Triglyceride [Mass/Vol] 135 0-149 mg/dL Normal 2019 [facility] Internal Medicine ( 90399) Comment: PATIENT WAS FASTINGPERFORMED BY: CB [facility] Gtjlvj6622 [address] [place] [id number] 113 0-99 mg/dL Abnormal 03-30-2020 [facility] Internal Medicine (46094) Comment: PATIENT WAS FASTINGPERFORMED BY: CB [facility] Divqao5197 [address] [place] [id number] 24 5-40 mg/dL Normal 03-30-2020 [facility] Internal Medicine (34043) Comment: PATIENT WAS FASTINGPERFORMED BY: CB [facility] Ztbjix8575 [address] Road[address] [place] [id number] free triidothyronine (t3) (98544) Ordered By: Base Loader on 2020-03-30 Free T3 [Mass/Vol] 2.5 2.0-4.4 pg/mL Normal 03-30-2020 [facility] Internal Medicine ( 01073) Comment: PATIENT WAS FASTINGPERFORMED BY: CB [facility] Lxvvzk8004 [address] [place] [id number] cbc & platelets (auto) (50890) Ordered By: Base Loader on 2020-03-30 Erythrocyte distribution 12.6 11.7-15.4 % Normal 03-30 [facility] Internal width (RBC) [Ratio] Medicine (91015) Comment: PATIENT WAS FASTINGPERFORMED BY: CB [facility] Wnesvq9572 [address] Road[address] [place] [id number] Hematocrit (Bld) [Volume 43.8 34.0-46.6 % Normal 03-30 Comprehensive Internal fraction] Medicine ( 37962) Comment: PATIENT WAS FASTINGPERFORMED BY: CB [facility] Laonxc0016 [address] Road[address] [place] [id number] Hemoglobin (Bld) 15.0 11.1-15.9 g/dL Normal 03-30-2020 In mprehensive Internal [Mass/Vol] Medicine (19831) Comment: PATIENT WAS FASTINGPERFORMED BY: CB [facility] Mtvqzj0802 [address] RoadDublin [place] [id number] MCH (RBC) [Entitic 30.7 26.6-33.0 pg Normal 03-30-2020 Comprehensive Internal mass] Medicine ( 75631) Comment: PATIENT WAS FASTINGPERFORMED BY: LabCoSaint Clare[facility] Hospital at SussexHezryp4237 [facility] [id number] MCHC (RBC) [Mass/Vol] 34.2 31.5-35.7 g/dL Normal 03-30-20 20 [facility] Internal Medicine ( 80420) Comment: PATIENT WAS FASTINGPERFORMED BY: [facility] Qgfdiy9353 [facility] [id number] MCV (RBC) [Entitic vol] 90 79-97 fL Normal 2019 [facility] Internal Medicine (91058) Comment: PATIENT WAS FASTINGPERFORMED BY: LabCoSaint Clare[facility] Hospital at SussexQixfqf2920 [facility] [id number] Platelets (Bld) 221 150-450 {x10E3/uL} Normal 03-30-2020 [facility] Internal [#/Vol] Medicine ( 93796) Comment: PATIENT WAS FASTINGPERFORMED BY: LabCoSaint Clare[facility] Hospital at SussexBjxzjs9453 [facility] [id number] RBC (Bld) [#/Vol] 4.88 3.77-5.28 {x10E6/uL} Normal 03-30-2020 [facility] Internal Medicine ( 92418) Comment: PATIENT WAS FASTINGPERFORMED BY: [facility] Qcnmpi4523 [facility] [id number] WBC (Bld) [#/Vol] 7.8 3.4-10.8 {x10E3/uL} Normal 03-30-2020 [facility] Internal Medicine ( 07636) Comment: PATIENT WAS FASTINGPERFORMED BY: [facility] Mucbek5058 [facility] [id number] tsh (08431) Ordered By: Base Loader on 2019-10-06 TSH Qn 0.731 0.450-4.500 {uIU/mL} Normal 10-06-2019 [facility] Internal Medicine (25003) Comment: Test(s) 435095-LRK-F; 388660 -LDL-C; 962848-NPB-R; 302126-Kactbcltyfblx; 963062-Azesahawswc, Total; 8 74308-SZM-W (Total);595859-Ulpze LDL-P; 848875-IUP Size; 003236-IO-U R Scorewas developed and its performance characteristics determinedby [employer]. It has not been cleared or approved by the Foodand Drug Administrat [employer].PATIENT WAS FASTINGPERFORMED BY: KupiVIP[address] [id number] BY: KupiVIPSaint Clare's Hospital at SussexPeylnn7135 [facility] [id number] t4, free (thyroxine) (34749) Ordered By: Base Loader on 2019-10-06 Free T4 [Mass/Vol] 1.66 0.82-1.77 ng/dL Normal 10-06-2019 [facility] Medicine ( 17823) Comment: Test(s) 186810-SOJ-N; 559279 -LDL-C; 001772-OCC-M; 354131-Sjpjjkiaicljk; 215345-Aoxydaqxbei, Total; 8 57063-AYF-Y (Total);054616-Wmswm LDL-P; 048352-EHJ Size; 279219-GR-J R Scorewas developed and its performance characteristics determinedby [employer]. It has not been cleared or approved by the Foodand Drug Administrat [employer].PATIENT WAS FASTINGPERFORMED BY: [facility] [address] [id number] BY: [facility] Rhluaq3629 [facility] [id number] t3, free (tridothyronine) (62393) Ordered By: Base Loader on 2019-10-06 Free T3 [Mass/Vol] 2.8 2.0-4.4 pg/mL Normal 10-06-2019 [facility] Medicine ( 41185) Comment: Test(s) 624025-SRJ-D; 288054 -LDL-C; 564876-KEI-P; 607386-Vmiivvdgjpafv; 325500-Demgljzblpy, Total; 8 77941-YBK-Z (Total);709882-Tqqdk LDL-P; 492087-OWX Size; 583634-SX-H R Scorewas developed and its performance characteristics determinedby [employer]. It has not been cleared or approved by the Foodand Drug Administrat [employer].PATIENT WAS FASTINGPERFORMED BY: Sand Sign1447 [facility] [id number] BY: MARINA KupiVIP Ablgwd1318 [facility] [id number] nmr profile (15478) Ordered By: Base Loader on 2019-10-06 Cholesterol [Mass/Vol] 195 100-199 mg/dL Normal 020 [facility] ( 59837) Comment: Test(s) 496363-ABW-F; 751812 -LDL-C; 606749-LSH-U; 320529-Zpxubnjfbidiw; 873412-Mdejtszhvpy, Total; 8 59953-HTN-A (Total);473594-Hdlfv LDL-P; 649518-ILN Size; 465950-GT-V R Scorewas developed and its performance characteristics determinedby Changba. It has not been cleared or approved by the Foodand Drug Administrat [employer].PATIENT WAS FASTINGPERFORMED BY: Sand Sign1447 [facility] [id number] BY: Erydel6370 [facility] [id number] Cholesterol in HDL 60 mg/dL Normal 10-06-2019 [facility] Internal [Mass/Vol] Medicine (22234) Comment: Test(s) 256996-MCO-J; 460841 -LDL-C; 984129-AKE-R; 957378-Lzkotajewtzfh; 748516-Ktyngpwoyap, Total; 8 66296-RSV-H (Total);914386-Ylvbe LDL-P; 838788-CEI Size; 538334-HN-C R Scorewas developed and its performance characteristics determinedby Changba. It has not been cleared or approved by the Foodand Drug Administrat [employer].PATIENT WAS FASTINGPERFORMED BY: DiaTech Oncologyton1447 [facility] [id number] BY: Changba Vjepeh3943 [facility] [id number] Lipoprotein.alpha [Moles/Vol] 35.1 umol/L Normal 10-06-2019 [facility] Internal Medicine ( 36019) Comment: Test(s) 106101-WAO-Y; 715725 -LDL-C; 127725-XSG-Y; 215423-Drufivxmpziik; 876146-Maqcsiyqaph, Total; 8 07167-GHF-V (Total);705112-Ntitf LDL-P; 240631-HVY Size; 789035-UX-Y R Scorewas developed and its performance characteristics determinedby [email or web address]. It has not been cleared or approved by the Foodand Drug Administrat ion.PATIENT WAS FASTINGPERFORMED BY: BN [facility] Rtektguutd7563 [facility] [id number] BY: CB [facility] Ztenwz0909 [facility] [id number] Lipoprotein.beta.subparticle 20.9 nm Normal 0 10-06-2019 [facility] [Entitic length] Int [facility] Medicine (70334) Comment: INTERPRETATIVE INFORMATION PARTICLE VICKY NTRATION AND SIZE <--Lower CVD Risk Higher CVD Risk--> LDL AND HDL PARTICLE S Percentile in Reference Population HDL-P (total) High 75th 50th 25th Low >34.9 34.9 30.5 26.7 <26.7 . Small LDL-P Low 25th 50th 75th High <117 117 527 839 >839 . LDL Size <-Large (Pattern A)-> <-Small (Pattern B)-> 23.0 2 0.6 20.5 19.0 Small LDL-P and LDL Size are associated with CVD risk, but not afterLDL-P is taken into account. Test(s) 036415-ZSF-Z; 773795 -LDL-C; 778493-KDB-Y; 526029-Frjmscfguqzdl; 312932-Dxeqcimgoht, Total; 8 89924-XWZ-X (Total);905440-Szlha LDL-P; 371313-WCC Size; 974937-FJ-T R Scorewas developed and its performance characteristics determinedby Changba. It has not been cleared or approved by the Foodand Drug Administrat ion.PATIENT WAS FASTINGPERFORMED BY: KupiVIP[address] [id number] BY: Inoveight HoldingsCoZuni HospitalEbbaps5845 [facility] [id number] Lipoprotein.beta.subparticle 1229 nmol/L Abnormal 0 10-06-2019 [facility] [Moles/Vol] Internal Medicine (59865) Comment: Low < 1000 Moderate 1000 - 1 299 Borderline-High 1300 - 1599 High 1600 - 2000 Very High > 2000 Test(s) 819293-OHI-M; 481656 -LDL-C; 254835-BWO-D; 366708-Qbluvflnjuiyd; 563227-Qwoszxonzgy, Total; 8 49430-NBF-T (Total);709051-Uhcdc LDL-P; 535254-FFZ Size; 041994-FE-B R Scorewas developed and its performance characteristics determinedby Changba. It has not been cleared or approved by the Foodand Drug Administrat ion.PATIENT WAS FASTINGPERFORMED BY: Changba [address] [id number] BY: KupiVIP Yodqya6072 [facility] [id number] Lipoprotein.beta.subparticle.small 457 nmol/L Migdalia l 10-06-2019 [facility] [Moles/Vol] Internal Medicine ( 98345) Comment: Test(s) 336717-COF-X; 822921 -LDL-C; 964046-JHJ-Q; 761874-Nhorsdrryytyx; 709512-Xvsaknjqnzj, Total; 8 32943-ANY-M (Total);081197-Ewqwl LDL-P; 716619-TSL Size; 737775-FR-M R Scorewas developed and its performance characteristics determinedby Changba. It has not been cleared or approved by the Foodand Drug Administrat ion.PATIENT WAS FASTINGPERFORMED BY: KupiVIP[address] [id number] BY: Erydel6370 [facility] Ro [facility] [id number] Triglyceride [Mass/Vol] 125 0-149 mg/dL Normal 2019 [facility] Internal Medicine ( 17555) Comment: Test(s) 442538-LSH-L; 011332 -LDL-C; 228882-VIX-J; 713170-Lqrnavsrhfbxq; 313155-Rbnrcgpmoxd, Total; 8 57129-DEW-S (Total);358318-Haohs LDL-P; 662051-CTM Size; 037425-DB-K R Scorewas developed and its performance characteristics determinedby Changba. It has not been cleared or approved by the Foodand Drug Administrat ion.PATIENT WAS FASTINGPERFORMED BY: Covocative [facility] [id number] BY: Erydel6370 [facility] adDFormerly [facility] [id number] 110 0-99 mg/dL Abnormal 10-06-2019 [facility] Internal Medicine (95718) Comment: . Optimal < 100 Above optima l 100 - 129 Borderline 130 - 159 High 160 - 189 Very high > 189 .LDL-C is in accurate if patient is non-fasting. Test(s) 563995-DIY-K; 528606 -LDL-C; 553104-EGS-G; 743040-Faqoqtcvfhaxa; 327057-Bbersbcpbgd, Total; 8 17195-EOR-D (Total);231925-Wadjs LDL-P; 662810-JAC Size; 590082-FM-T R Scorewas developed and its performance characteristics determinedby Changba. It has not been cleared or approved by the Foodand Drug Administrat [employer].PATIENT WAS FASTINGPERFORMED BY: DiaTech Oncologyton1447 [facility] [id number] BY: Erydel6370 [facility] [id number] metabolic panel, comprehensive (75447) Ordered By: Base Loader on 2019-10-06 Albumin [Mass/Vol] 4.3 3.7-4.7 g/dL Normal 10-06-2019 [facility] Internal Medicine (46152) Comment: Test(s) 130750-MJM-G; 399815 -LDL-C; 853758-QIB-O; 646031-Xjggsrmqweviy; 275863-Jxpxjulyinf, Total; 8 72733-PKS-H (Total);585763-Filfv LDL-P; 664831-NNE Size; 435064-XL-X R Scorewas developed and its performance characteristics determinedby Changba. It has not been cleared or approved by the Foodand Drug Administrat ion.PATIENT WAS FASTINGPERFORMED BY: Changba [address] [id number] BY: KupiVIP Fblprp7417 [facility] [id number] Albumin/Globulin [Mass 1.9 1.2-2.2 1 Normal 020 [facility] Internal ratio] Medicine ( 80686) Comment: Test(s) 405675-DDL-A; 305383 -LDL-C; 709961-LNK-X; 628335-Nfyvhqfhkbxdz; 332953-Kzozckqgrov, Total; 8 15062-HHW-W (Total);896446-Iwarq LDL-P; 545389-VFD Size; 361711-JS-O R Scorewas developed and its performance characteristics determinedby Changba. It has not been cleared or approved by the Foodand Drug Administrat ion.PATIENT WAS FASTINGPERFORMED BY: Changba [address] [id number] BY: Bihu.comlin6370 [facility] [id number] ALP [Catalytic 84 39-117 [iU]/L Normal 10-06-2019 Comp rehensive Internal activity/Vol] Medici ne (29220) Comment: Test(s) 494624-UMA-Y; 945744 -LDL-C; 320334-NQB-F; 861260-Nsvfcotrmlxik; 750376-Tvpajbmpqhn, Total; 8 10392-JYK-G (Total);580413-Pcmkf LDL-P; 567691-TOP Size; 392249-HM-S R Scorewas developed and its performance characteristics determinedby Changba. It has not been cleared or approved by the Foodand Drug Administrat ion.PATIENT WAS FASTINGPERFORMED BY: DFine Ihuviuthjr8631 [facility] [id number] BY: KupiVIP Ihpyex78[address] [facility] [address] [facility] [id number] ALT [Catalytic 14 0-32 [iU]/L Normal 10-06-2019 Comp rehensive Internal activity/Vol] Medici ne (36585) Comment: Test(s) 606850-IYC-T; 747951 -LDL-C; 263561-ONF-V; 890632-Gqglsvznbsbcf; 755707-Tlagkwpjcqr, Total; 8 65777-KCU-N (Total);648638-Sbsbw LDL-P; 599847-CYH Size; 486371-IQ-A R Scorewas developed and its performance characteristics determinedby Changba. It has not been cleared or approved by the Foodand Drug Administrat ion.PATIENT WAS FASTINGPERFORMED BY: [employer] Oncology[address] [id number] BY: KupiVIP Jcvnua8338 [facility] [id number] AST [Catalytic 21 0-40 [iU]/L Normal 10-06-2019 Comp rehensive Internal activity/Vol] Medici ne (40710) Comment: Test(s) 456801-OYW-M; 804996 -LDL-C; 817758-BMT-Z; 591997-Pddyhujkpaxvl; 432696-Lubekeszkbn, Total; 8 45365-CGS-T (Total);306946-Zvfnp LDL-P; 954223-ZJH Size; 884788-PB-D R Scorewas developed and its performance characteristics determinedby Changba. It has not been cleared or approved by the Foodand Drug Administrat ion.PATIENT WAS FASTINGPERFORMED BY: KupiVIP [address] [id number] BY: KupiVIP Ealelk3779 [facility] [id number] Bilirubin [Mass/Vol] 0.5 0.0-1.2 mg/dL Normal 0 [facility] Internal Medicine ( 83906) Comment: Test(s) 395216-VVV-V; 570433 -LDL-C; 924804-VKB-F; 469186-Qxvjtufiuqjnr; 822816-Zkexmgssqco, Total; 8 19402-TAZ-E (Total);183906-Dsidk LDL-P; 636939-YON Size; 362579-LX-M R Scorewas developed and its performance characteristics determinedby Changba. It has not been cleared or approved by the Foodand Drug Administrat ion.PATIENT WAS FASTINGPERFORMED BY: [employer] Oncology[address] [id number] BY: Billeo70 [facility] [id number] Calcium [Mass/Vol] 10.0 8.7-10.3 mg/dL Normal 10-06-2019 [facility] Internal [facility] ( 94246) Comment: Test(s) 771676-RPB-P; 061169 -LDL-C; 307023-QEU-C; 798996-Pwrjmvpeqfpwz; 149176-Amgunxfilru, Total; 8 48161-DQQ-I (Total);983836-Rcvku LDL-P; 763237-HWO Size; 808526-AX-O R Scorewas developed and its performance characteristics determinedby Changba. It has not been cleared or approved by the Foodand Drug Administrat ion.PATIENT WAS FASTINGPERFORMED BY: Maxim Athletic Epishynkyc0388 [facility] [id number] BY: Erydel6370 [facility] [id number] Chloride [Moles/Vol] 100 96-106 mmol/L Normal 0 [facility] Internal Medicine ( 53514) Comment: Test(s) 933301-VQL-B; 071893 -LDL-C; 465019-FWH-K; 196749-Hvcwqbteuostd; 886935-Clxpygbghin, Total; 8 52389-RWX-O (Total);238884-Nocnd LDL-P; 166985-UNQ Size; 320535-VI-J R Scorewas developed and its performance characteristics determinedby Changba. It has not been cleared or approved by the Foodand Drug Administrat ion.PATIENT WAS FASTINGPERFORMED BY: DiaTech Oncologyton1447 [facility] [id number] BY: KupiVIP Ldyegz3995 [facility] [id number] CO2 [Moles/Vol] 27 20-29 mmol/L Normal 10-06-2019 [facility] Internal Medicine (25092) Comment: Test(s) 110821-NKR-Y; 136366 -LDL-C; 546245-FBM-A; 870607-Ybzkzcqstylhz; 446402-Nwayvfgtyma, Total; 8 38047-LTL-O (Total);842404-Qntxm LDL-P; 127633-MRY Size; 917940-RP-A R Scorewas developed and its performance characteristics determinedby Changba. It has not been cleared or approved by the Foodand Drug Administrat ion.PATIENT WAS FASTINGPERFORMED BY: [employer] Oncology[address] [id number] BY: EnteGreat70 [facility] [id number] Creatinine [Mass/Vol] 0.85 0.57-1.00 mg/dL Normal 10-06-[address] [place] [address] [facility] ( 48670) Comment: Test(s) 269252-DTM-D; 028153 -LDL-C; 034179-FHS-Z; 855675-Sogucjfylyjbw; 326136-Ookhnexsnqh, Total; 8 51533-VJW-S (Total);113194-Mxfpi LDL-P; 331253-PEA Size; 000920-SK-N R Scorewas developed and its performance characteristics determinedby Changba. It has not been cleared or approved by the Foodand Drug Administrat ion.PATIENT WAS FASTINGPERFORMED BY: DiaTech Oncologyton1447 [facility] [id number] BY: Erydel6370 [facility] [id number] GFR/1.73 sq M predicted 77 mL/min/1.73 Normal [facility] Internal among blacks CKD-EPI Medicine (81703) (S/P/Bld) [Vol rate/Area] Comment: Test(s) 577191-ZXI-P; 523765 -LDL-C; 854112-KHK-C; 598832-Cjvmzkupnryqc; 816433-Hhsgahiiylc, Total; 8 67252-JLV-B (Total);425388-Lsdwk LDL-P; 039236-WWK Size; 029202-GB-U R Scorewas developed and its performance characteristics determinedby Changba. It has not been cleared or approved by the Foodand Drug Administrat ion.PATIENT WAS FASTINGPERFORMED BY: [employer] Athletic [address] [id number] BY: [employer]6370 [facility] [id number] GFR/1.73 sq M predicted 67 mL/min/1.73 Normal [facility] Internal among non-blacks CKD-EPI Medicine (17740) (S/P/Bld) [Vol rate/Area] Comment: Test(s) 103223-DSW-F; 543623 -LDL-C; 642966-GDL-K; 569555-Qtdozvvqlerou; 594239-Epwxbuwjzpk, Total; 8 94770-NTK-M (Total);871986-Cgcfe LDL-P; 915580-CTN Size; 864695-IB-N R Scorewas developed and its performance characteristics determinedby Changba. It has not been cleared or approved by the Foodand Drug Administrat ion.PATIENT WAS FASTINGPERFORMED BY: Maxim Athletic [address] [id number] BY: Bihu.comlin6370 [facility] [id number] Globulin (S) [Mass/Vol] 2.3 1.5-4.5 g/dL Normal 2019 [facility] Medicine ( 49101) Comment: Test(s) 083590-JMU-O; 801669 -LDL-C; 253779-RFH-H; 333043-Nmjtxrgssczmd; 479433-Fyncwijnhtg, Total; 8 12949-SNU-P (Total);989659-Bsxay LDL-P; 737220-BRF Size; 728992-GA-N R Scorewas developed and its performance characteristics determinedby Changba. It has not been cleared or approved by the Foodand Drug Administrat ion.PATIENT WAS FASTINGPERFORMED BY: DiaTech Oncologyton1447 [facility] [id number] BY: KupiVIP Rozkpz6484 [facility] [place] [id number] Glucose [Mass/Vol] 96 65-99 mg/dL Normal 10-06-2019 [facility] Internal Medicine (38380) Comment: Test(s) 616817-OVJ-L; 593850 -LDL-C; 880794-SMB-R; 015922-Kkbrenlqueiew; 978822-Dpqbyrfcqmi, Total; 8 09266-FDP-W (Total);894081-Lhifa LDL-P; 968266-FND Size; 190765-QE-K R Scorewas developed and its performance characteristics determinedby Changba. It has not been cleared or approved by the Foodand Drug Administrat [employer].PATIENT WAS FASTINGPERFORMED BY: CleanFish7 [facility] [id number] BY: [employer]6370 [facility] [id number] Potassium [Moles/Vol] 4.2 3.5-5.2 mmol/L Normal 10-06-19 [facility] Internal Medicine ( 72789) Comment: Test(s) 618923-ANP-G; 613996 -LDL-C; 807726-DAZ-M; 346120-Njanvkmlmymgq; 509488-Fuigtczsnwi, Total; 8 99524-EAU-U (Total);807500-Uulsw LDL-P; 282262-AEH Size; 311944-XS-W R Scorewas developed and its performance characteristics determinedby Changba. It has not been cleared or approved by the Foodand Drug Administrat [employer].PATIENT WAS FASTINGPERFORMED BY: DiaTech Oncologyton1447 [facility] [id number] BY: KupiVIP Whaygd1567 [facility] [id number] Protein [Mass/Vol] 6.6 6.0-8.5 g/dL Normal 10-06-2019 [facility] Internal Medicine (21712) Comment: Test(s) 001053-LKX-K; 098755 -LDL-C; 149271-SYD-B; 431548-Usbxighymtygd; 828651-Sbzvoakgirz, Total; 8 22045-ZZP-I (Total);543721-Okqrz LDL-P; 915140-ZNO Size; 714808-DG-F R Scorewas developed and its performance characteristics determinedby Changba. It has not been cleared or approved by the Foodand Drug Administrat ion.PATIENT WAS FASTINGPERFORMED BY: [employer] Athletic [address] [id number] BY: KupiVIPZuni HospitalPtdjuv9932 [facility] [id number] Sodium [Moles/Vol] 143 134-144 mmol/L Normal 10-06-2019 [facility] Internal Medicine ( 85406) Comment: Test(s) 846981-DFQ-R; 359136 -LDL-C; 307918-LPX-Q; 643259-Atnqmkzpyfmyr; 117630-Bdlpahlcmun, Total; 8 26450-DYZ-D (Total);579296-Gwczk LDL-P; 404854-XDM Size; 051666-NR-J R Scorewas developed and its performance characteristics determinedby Changba. It has not been cleared or approved by the Foodand Drug Administrat ion.PATIENT WAS FASTINGPERFORMED BY: Maxim Athletic [address] [id number] BY: Changba Uootqi3382 [facility] [id number] Urea nitrogen [Mass/Vol] 10 8-27 mg/dL Normal 10-05 [facility] Internal Medicine ( 64713) Comment: Test(s) 087889-WIH-D; 565338 -LDL-C; 578940-PRI-A; 378992-Tsfudzozvtrsf; 931746-Ljtxvdbbrzh, Total; 8 34424-XPX-C (Total);866005-Nbyts LDL-P; 697672-UOQ Size; 545649-LI-B R Scorewas developed and its performance characteristics determinedby Changba. It has not been cleared or approved by the Foodand Drug Administrat [employer].PATIENT WAS FASTINGPERFORMED BY: DiaTech Oncologyton1447 [facility] [id number] BY: MARINA [employer]6370 [facility] [id number] Urea nitrogen/Creatinine [Mass 12 12-28 1 Normal 10-06-2019 [facility] Internal ratio] Medicine ( 17354) Comment: Test(s) 180257-ZFF-E; 022881 -LDL-C; 530948-ENL-B; 649981-Tlhajnilqnfwa; 172200-Kjwvsgegwko, Total; 8 29775-VDW-B (Total);887803-Vzakq LDL-P; 301417-DLT Size; 217998-JF-V R Scorewas developed and its performance characteristics determinedby Changba. It has not been cleared or approved by the Foodand Drug Administrat ion.PATIENT WAS FASTINGPERFORMED BY: CleanFish[address] [place] [address] [id number] BY: EnteGreat70 [facility] [id number] cbc w/auto diff wbc (36646) Ordered By: Base Loader on 2019-10-06 Basophils (Bld) 0.1 0.0-0.2 {x10E3/uL} Normal 10-06-2019 [facility] Internal [#/Vol] Medicine ( 65311) Comment: Test(s) 483931-HXH-A; 950296 -LDL-C; 079492-TKM-Y; 598975-Cjryotsgcnvll; 802613-Dxxihoeveqj, Total; 8 70398-URF-S (Total);348813-Tvgxf LDL-P; 172739-QEA Size; 764016-FD-U R Scorewas developed and its performance characteristics determinedby Changba. It has not been cleared or approved by the Foodand Drug Administrat [employer].PATIENT WAS FASTINGPERFORMED BY: [employer]cology[address] [id number] BY: Erydel6370 [facility] [id number] Basophils/100 WBC (Bld) 1 % Normal 2019 [facility] Internal Medicine (52900) Comment: Test(s) 971665-HBA-B; 996375 -LDL-C; 932129-AMC-G; 354224-Wnxfwwlafyzla; 536210-Chydgsvtvyz, Total; 8 11277-BLF-Z (Total);358022-Wowzf LDL-P; 390203-WCH Size; 163836-AH-H R Scorewas developed and its performance characteristics determinedby Changba. It has not been cleared or approved by the Foodand Drug Administrat ion.PATIENT WAS FASTINGPERFORMED BY: Changba [address] [id number] BY: KupiVIP Fkomvd3298 [facility] [id number] Eosinophils (Bld) 0.2 0.0-0.4 {x10E3/uL} Normal 10-06-2019 [facility] Internal [#/Vol] Medicine ( 01869) Comment: Test(s) 557341-VJJ-J; 430580 -LDL-C; 743398-OQF-L; 853319-Mgmqtiskpusqg; 752887-Zsavceegadf, Total; 8 64805-WIT-P (Total);273533-Blydd LDL-P; 379840-FLA Size; 113395-DZ-D R Scorewas developed and its performance characteristics determinedby Changba. It has not been cleared or approved by the Foodand Drug Administrat ion.PATIENT WAS FASTINGPERFORMED BY: Changba [address] [id number] BY: [employer]6370 [facility] [id number] Eosinophils/100 WBC (Bld) 3 % Normal 0 [facility] Internal Medicine (94828) Comment: Test(s) 102546-PTY-P; 957799 -LDL-C; 242724-DUZ-O; 442787-Pwrljuufyxtle; 576334-Hgrbnnwkbsi, Total; 8 11842-ZYH-U (Total);556083-Ccxro LDL-P; 854014-CHR Size; 144514-AL-W R Scorewas developed and its performance characteristics determinedby Changba. It has not been cleared or approved by the Foodand Drug Administrat ion.PATIENT WAS FASTINGPERFORMED BY: [employer] Oncologyton1447 [facility] [id number] BY: MARINA KupiVIP Dqgtvk6340 [facility] [id number] Erythrocyte distribution 12.7 11.7-15.4 % Normal 10-05 [facility] Internal width (RBC) [Ratio] Medicine (57652) Comment: Test(s) 570303-VRC-X; 567555 -LDL-C; 615418-HBX-B; 780788-Slqhdcokjptdy; 809996-Lnbptdzlkah, Total; 8 27861-PMA-G (Total);535702-Gytbn LDL-P; 562065-MKP Size; 669510-PV-C R Scorewas developed and its performance characteristics determinedby Changba. It has not been cleared or approved by the Foodand Drug Administrat [employer].PATIENT WAS FASTINGPERFORMED BY: [employer] Oncologyton1447 [facility] [id number] BY: [employer] Zetnqp3558 [facility] [id number] Hematocrit (Bld) [Volume 46.2 34.0-46.6 % Normal 10-05 [facility] Internal fraction] Medicine ( 59870) Comment: Test(s) 251433-IQI-M; 354030 -LDL-C; 367922-CLJ-W; 479967-Ncmqnhqyseyzc; 282537-Znociuyryzb, Total; 8 32538-CMJ-S (Total);832066-Qsrgv LDL-P; 216836-EWW Size; 515306-PT-B R Scorewas developed and its performance characteristics determinedby Changba. It has not been cleared or approved by the Foodand Drug Administrat [employer].PATIENT WAS FASTINGPERFORMED BY: [employer] Oncologyton1447 [facility] [id number] BY: Inoveight HoldingsCo Ptaagf0597 [facility] [id number] Hemoglobin (Bld) 15.0 11.1-15.9 g/dL Normal 10-06-2019 [facility] Internal [Mass/Vol] Medicine (52847) Comment: Test(s) 762375-EZZ-F; 731433 -LDL-C; 579429-MDN-B; 882310-Mwrwnadoxyrov; 086193-Jrprajbmcbg, Total; 8 02022-XWY-K (Total);241902-Csuxl LDL-P; 135180-ANH Size; 801522-BO-P R Scorewas developed and its performance characteristics determinedby Changba. It has not been cleared or approved by the Foodand Drug Administrat ion.PATIENT WAS FASTINGPERFORMED BY: Changba [address] [id number] BY: [employer]6370 [facility] [id number] Immature granulocytes 0.0 0.0-0.1 {x10E3/uL} Normal 020 [facility] Internal (Bld) [#/Vol] Medici ne (87823) Comment: Test(s) 594341-BNH-W; 494085 -LDL-C; 475161-EHD-A; 117948-Ltcwanbxbmszp; 587201-Xhakunhzpwb, Total; 8 88577-UHY-S (Total);329470-Ibopn LDL-P; 694664-TFN Size; 901060-EZ-L R Scorewas developed and its performance characteristics determinedby Changba. It has not been cleared or approved by the Foodand Drug Administrat ion.PATIENT WAS FASTINGPERFORMED BY: Changba [address] [id number] BY: [employer]6370 [facility] [id number] Immature granulocytes/100 WBC 0 % Normal 10-06-2019 [facility] Internal (Bld) Medicine ( 76405) Comment: Test(s) 388093-DUK-L; 762754 -LDL-C; 637858-NSY-A; 150947-Uzpomdubcblpa; 839984-Kbcnuxwmmit, Total; 8 53589-ONV-V (Total);209516-Bzxuv LDL-P; 368189-CBR Size; 151456-TC-Q R Scorewas developed and its performance characteristics determinedby [employer]. It has not been cleared or approved by the Foodand Drug Administrat ion.PATIENT WAS FASTINGPERFORMED BY: [employer]1447 [facility] [id number] BY: [employer]1811 [facility] [id number] Lymphocytes (Bld) 2.5 0.7-3.1 {x10E3/uL} Normal 10-06-2019 [facility] Internal [#/Vol] Medicine ( [id number]) Comment: Test(s) 389686-JFN-P; 229712 -LDL-C; 677455-BAU-D; 483160-Fnnhkckfmbaol; 440749-Kflcddyjnll, Total; 8 60018-MEZ-A (Total);475711-Ygxwj LDL-P; 655460-KUT Size; 079683-FC-O R Scorewas developed and its performance characteristics determinedby Changba. It has not been cleared or approved by the Foodand Drug Administrat [employer].PATIENT WAS FASTINGPERFORMED BY: Covocative [facility] [id number] BY: [employer] PromoFarma.comFormerly [facility] [id number] Lymphocytes/100 WBC (Bld) 34 % Normal [facility] (53019) Comment: Test(s) 531096-RMR-I; 150452 -LDL-C; 199301-VTQ-I; 092261-Trzwfopyyhdee; 636845-Zhudreaiqxf, Total; 8 93622-CNO-I (Total);342693-Hxony LDL-P; 985272-JGX Size; 648493-IT-L R Scorewas developed and its performance characteristics determinedby [employer]. It has not been cleared or approved by the Foodand Drug Administrat [employer].PATIENT WAS FASTINGPERFORMED BY: Covocative [facility] [id number] BY: KupiVIP Kpfubd[address] [facility] [id number] MCH (RBC) [Entitic 30.1 26.6-33.0 pg Normal 10-06-2019 [facility] Internal [facility]] Medicine ( 49995) Comment: Test(s) 710201-WJZ-Y; 278581 -LDL-C; 624747-TCI-A; 191825-Uorgmlmplyndg; 867683-Jthmoeoawpn, Total; 8 08942-CYT-M (Total);039222-Zzbwa LDL-P; 088539-EAE Size; 468991-QA-V R Scorewas developed and its performance characteristics determinedby Chang[employer]. It has not been cleared or approved by the Foodand Drug Administrat ion.PATIENT WAS FASTINGPERFORMED BY: [employer] [address] [id number] BY: Billeo70 [facility] [id number] MCHC (RBC) [Mass/Vol] 32.5 31.5-35.7 g/dL Normal 10-06-19 [facility] Internal Medicine ( 67808) Comment: Test(s) 772419-NXP-S; 259648 -LDL-C; 487774-GXS-H; 043687-Lnejdctkhibau; 594251-Dzktiyohigd, Total; 8 95642-HFE-E (Total);306783-Oezwg LDL-P; 048535-QAL Size; 121399-XB-D R Scorewas developed and its performance characteristics determinedby [employer]. It has not been cleared or approved by the Foodand Drug Administrat ion.PATIENT WAS FASTINGPERFORMED BY: [employer] Dyhvgezqdi4206 [facility] [id number] BY: Bihu.comlin6370 [facility] [id number] MCV (RBC) [Entitic vol] 93 79-97 fL Normal 2019 [facility] Internal Medicine (35102) Comment: Test(s) 129263-QDX-K; 470035 -LDL-C; 338253-TOJ-Z; 063720-Jwsmkbbqgjpwn; 810944-Rqingqzsasf, Total; 8 88937-UEY-P (Total);879625-Tdwav LDL-P; 682238-OIZ Size; 846081-YE-U R Scorewas developed and its performance characteristics determinedby Chang[employer]. It has not been cleared or approved by the Foodand Drug Administrat ion.PATIENT WAS FASTINGPERFORMED BY: DFine Tcvelclfil1050 [facility] [id number] BY: KupiVIPSaint Clare's Hospital at SussexDpkrmd3220 [facility] [id number] Monocytes (Bld) 0.6 0.1-0.9 {x10E3/uL} Normal 10-06-2019 [facility] Internal [#/Vol] Medicine ( 84136) Comment: Test(s) 648098-FGO-H; 773057 -LDL-C; 946117-OSS-W; 056628-Vryvgjkgfxieu; 874753-Cgufilpicuj, Total; 8 31162-IJK-F (Total);361033-Hrvfn LDL-P; 496210-ALV Size; 989481-DM-L R Scorewas developed and its performance characteristics determinedby Changba. It has not been cleared or approved by the Foodand Drug Administrat ion.PATIENT WAS FASTINGPERFORMED BY: [employer] [id number] BY: KupiVIP Mbxnnv3235 [facility] [id number] Monocytes/100 WBC (Bld) 8 % Normal 2019 [facility] Internal Medicine (13044) Comment: Test(s) 590406-KTX-T; 736412 -LDL-C; 101418-OOK-C; 662408-Cxyromctpxvsc; 428083-Inltlcspmvd, Total; 8 41561-JSG-U (Total);018411-Opuwe LDL-P; 616200-RDD Size; 698188-VT-D R Scorewas developed and its performance characteristics determinedby Changba. It has not been cleared or approved by the Foodand Drug Administrat ion.PATIENT WAS FASTINGPERFORMED BY: KupiVIP Wnfbgfqsrr9810 [facility] [id number] BY: KupiVIPSaint Clare's Hospital at SussexUsmxhz5524 [facility] [id number] Neutrophils (Bld) 4.0 1.4-7.0 {x10E3/uL} Normal 10-06-2019 [facility] Internal [#/Vol] Medicine ( 28722) Comment: Test(s) 899418-XKS-M; 365797 -LDL-C; 723247-KCI-P; 883689-Vgogzuongrcap; 397048-Ominnxnglfb, Total; 8 41254-WGU-G (Total);545598-Fcnuz LDL-P; 979624-SAS Size; 669392-QA-Y R Scorewas developed and its performance characteristics determinedby Chang[employer]. It has not been cleared or approved by the Foodand Drug Administrat ion.PATIENT WAS FASTINGPERFORMED BY: [employer] [address] [id number] BY: EnteGreat70 [facility] [id number] Neutrophils/100 WBC (Bld) 54 % Normal [facility] Internal Medicine (20751) Comment: Test(s) 538675-IZG-A; 554409 -LDL-C; 689614-NLB-S; 509483-Lbuvqfzqscsct; 129831-Jgtttfvzyvx, Total; 8 53469-LXW-N (Total);309060-Gaaic LDL-P; 860932-YME Size; 930192-CQ-I R Scorewas developed and its performance characteristics determinedby Changba. It has not been cleared or approved by the Foodand Drug Administrat [employer].PATIENT WAS FASTINGPERFORMED BY: DiaTech Oncologyton1447 [facility] [id number] BY: Erydel6370 [facility] [id number] Platelets (Bld) 225 150-450 {x10E3/uL} Normal 10-06-2019 [facility] Internal [#/Vol] Medicine ( 91099) Comment: Test(s) 435603-PID-I; 540855 -LDL-C; 340555-DYX-P; 282073-Zulezppigkbwj; 611219-Qrxuncsmgih, Total; 8 97028-EDH-P (Total);168976-Aboba LDL-P; 511603-LQN Size; 656256-TV-Y R Scorewas developed and its performance characteristics determinedby Changba. It has not been cleared or approved by the Foodand Drug Administrat [employer]Swarm.PATIENT WAS FASTINGPERFORMED BY: [employer] Oncologyton1447 [facility] [id number] BY: KupiVIP Wuokxy[address] [facility] [id number] RBC (Bld) [#/Vol] 4.98 3.77-5.28 {x10E6/uL} Normal 10-06-2019 [facility] Internal [facility] ( 62747) Comment: Test(s) 240156-GDX-X; 549578 -LDL-C; 579485-TPV-T; 243106-Iyudsvatwmncq; 735582-Eltqamgqyts, Total; 8 36236-GQV-I (Total);122820-Vtrdk LDL-P; 459672-KEE Size; 994238-FJ-U R Scorewas developed and its performance characteristics determinedby Changba. It has not been cleared or approved by the Foodand Drug Administrat ion.PATIENT WAS FASTINGPERFORMED BY: [employer] Oncologyton1447 [facility] [id number] BY: Erydel[address] [facility] [id number] WBC (Bld) [#/Vol] 7.4 3.4-10.8 {x10E3/uL} Normal 10-06-2019 [facility] Internal [facility] ( 62620) Comment: Test(s) 845482-FOX-Z; 219270 -LDL-C; 267024-IGQ-H; 361975-Qumhhxgwsimuo; 485446-Lafsdlhnpsn, Total; 8 91998-WSL-O (Total);374190-Rqcms LDL-P; 678254-CWT Size; 307362-GD-R R Scorewas developed and its performance characteristics determinedby Changba. It has not been cleared or approved by the Foodand Drug Administrat ion.PATIENT WAS FASTINGPERFORMED BY: DFine Hbidagyzim1545 [facility] [id number] BY: KupiVIP Qbcqng0986 [facility] [id number] urine ally culture-identificatn (67707) Ordered By: Base Loader on 2019-08-21 Bacteria identified Escherichia coli Abnormal [facility] Internal Cx Nom (U) Medicine (51602) Comment: 2,000 Colonies/mLCefazolin < =4 ug/mLCefazolin with an JULIOCESAR <=16 predicts susceptibility to the oral a gentscefaclor, cefdinir, cefpodoxime, cefprozil, cefuroxime, cephalexin,and l oracarbef when used for therapy of uncomplicated urinary tractinfections due to E. coli, Klebsiella pneumoniae, and Proteusmirabilis. PATIENT NOT FASTINGPERFORMED BY: MARINA Changba Achqam5492 [facility] [id number] Information: SRC:KRISHNA Bacteria identified Cx Final report Abnormal 08-02 [facility] Internal Nom (U) Medicine ( 64215) Comment: PATIENT NOT FASTINGPERFORMED BY: MARINA KupiVIPrp Ypkfks7328 [facility] [id number] Information: SRC:KRISHNA Other Antibiotic [Susc] MIHEAD Normal 2019 [facility] Internal Medicine (47048) Comment: S = Susceptible; I = Inte rmediate; R = Resistant P = Positive; N = Negative MICS are expressed in micrograms per mL Antibiotic RSLT#1 RSLT#2 RSLT#3 RSLT#4Amoxicillin/Cla vulanic Acid SAmpicillin SCefepime SCeftriaxone SCefuroxime SCiprofloxacin S Ertapenem SGentamicin SImipenem SLevofloxacin SMeropenem SNitrofurantoin S Piperacillin/Tazobactam STetracycline STobramycin STrimethoprim/Jacob lfa S PATIENT NOT FASTINGPERFORMED BY: [facility] Pgsfbx2407 [facility] [id number] Information: SRC:KRISHNA urinalysis, office (51026) Ordered By: Bonnie Wallace on 2019-08-21 Bilirubin Ql (U) Negative Normal 08-21-2019 [facility] Internal Medicine ( 39186) Glucose Test strip (U) Negative Normal 020 [facility] Internal [Mass/Vol] Medicine (38786) Hemoglobin Ql (U) ++ Abnormal 08-21-2019 C omprehensive Internal Medicine ( 27688) Ketones Ql (U) Negative Normal 08-21-2019 Comp rehensive Internal Medicine ( 54430) Leukocyte esterase Test Negative Normal 2019 [facility] Internal strip Ql (U) Medicin e (58499) Nitrite Ql (U) Negative Normal 08-21-2019 Comp rehensive Internal Medicine ( 69470) pH (U) 6 1 Abnormal 08-21-2019 Comprehen sive Internal Medicine ( 75829) Protein Ql (U) Negative Normal 08-21-2019 Comp rehensive Internal Medicine ( 09951) Specific gravity (U) [Rel 1.010 1 Normal 08-02 [facility] Internal density] Medicine ( 38072) Urobilinogen (24H U) Normal Normal 0 [facility] Internal [Mass/Time] Medicine (33328) tsh (88787) Ordered By: Base Loader on 2019-07-27 TSH Qn 5.130 0.450-4.500 {uIU/mL} Abnormal 07-27-2019 Compreh ensive Internal Medicine (11776) Comment: PATIENT NOT FASTINGPERFORMED BY: [facility] Mntydv6623 [address] GoodwallDublin [place] [id number] metabolic panel, comprehensive (25722) Ordered By: Base Loader on 2019-07-27 Albumin [Mass/Vol] 4.2 3.7-4.7 g/dL Normal 07-27-2019 [facility] Internal Medicine (65271) Comment: Please note reference inte rval change PATIENT NOT FASTINGPERFORMED BY: LabHug Energyrp Huqwas2654 [address] GoodwallDublin [place] [id number] Albumin/Globulin [Mass 1.8 1.2-2.2 1 Normal 020 [facility] Internal ratio] Medicine ( 07018) Comment: PATIENT NOT FASTINGPERFORMED BY: CB [facility] Buebbu3996 [address] RoadDublin [place] [id number] ALP [Catalytic 83 39-117 [iU]/L Normal 07-27-2019 Comp rehensive Internal activity/Vol] Medici ne (59439) Comment: PATIENT NOT FASTINGPERFORMED BY: CB [facility] Tofkpo8582 [address] RoadDublin [place] [id number] ALT [Catalytic 11 0-32 [iU]/L Normal 07-27-2019 Comp rehensive Internal activity/Vol] Medici ne (15745) Comment: PATIENT NOT FASTINGPERFORMED BY: CB [facility] Mjggou3437 [address] RoadDublin [place] [id number] AST [Catalytic 17 0-40 [iU]/L Normal 07-27-2019 Comp rehensive Internal activity/Vol] Medici [place] (84087) Comment: PATIENT NOT FASTINGPERFORMED BY: CB [facility] Dcpbfo6246 [address] RoadDublin [place] [id number] Bilirubin [Mass/Vol] 0.4 0.0-1.2 mg/dL Normal 0 [facility] Internal Medicine ( 79966) Comment: PATIENT NOT FASTINGPERFORMED BY: CB [facility] Lxpnuc5281 [address] RoadDublin [place] [id number] Calcium [Mass/Vol] 9.8 8.7-10.3 mg/dL Normal 07-27-2019 [facility] Internal Medicine ( 20444) Comment: PATIENT NOT FASTINGPERFORMED BY: CB [facility] Vsislp6796 [address] RoadDublin [place] [id number] Chloride [Moles/Vol] 104 96-106 mmol/L Normal 0 [facility] Internal [facility] ( 83257) Comment: PATIENT NOT FASTINGPERFORMED BY: CB [facility] Hjbtkg6920 [address] RoadDublin [place] [id number] CO2 [Moles/Vol] 25 20-29 mmol/L Normal 07-27-2019 [facility] (81077) Comment: PATIENT NOT FASTINGPERFORMED BY: CB [facility] Fvxndc7900 [address] RoadDublin [place] [id number] Creatinine [Mass/Vol] 0.80 0.57-1.00 mg/dL Normal 07-27-19 20 [facility] Internal Medicine ( 79902) Comment: PATIENT NOT FASTINGPERFORMED BY: CB [facility] Fqctei7945 [address] RoadDublin [place] [id number] GFR/1.73 sq M predicted 83 mL/min/1.73 Normal 07-02 [facility] Internal among blacks CKD-EPI Medicine (82080) (S/P/Bld) [Vol rate/Area] Comment: PATIENT NOT FASTINGPERFORMED BY: CB [facility] Eawgjq5465 [address] RoadDublin [place] [id number] GFR/1.73 sq M predicted 72 mL/min/1.73 Normal 07-02 [facility] Internal among non-blacks CKD-EPI Medicine (63303) (S/P/Bld) [Vol rate/Area] Comment: PATIENT NOT FASTINGPERFORMED BY: CB [facility] Tfykwk9409 [address] RoadDublin [place] [id number] Globulin (S) [Mass/Vol] 2.4 1.5-4.5 g/dL Normal 2019 [facility] Internal Medicine ( 26328) Comment: PATIENT NOT FASTINGPERFORMED BY: CB [facility] Dmkpar9344 [address] RoadDublin [place] [id number] Glucose [Mass/Vol] 94 65-99 mg/dL Normal 07-27-2019 [facility] Internal Medicine (62469) Comment: PATIENT NOT FASTINGPERFORMED BY: CB [facility] Wvxjjy6365 [address] RoadDublin [place] [id number] Potassium [Moles/Vol] 4.6 3.5-5.2 mmol/L Normal 07-27-19 20 [facility] Medicine ( 35792) Comment: PATIENT NOT FASTINGPERFORMED BY: CB [facility] Xhpzgv6350 [address] RoadDublin [place] [id number] Protein [Mass/Vol] 6.6 6.0-8.5 g/dL Normal 07-27-2019 [facility] Medicine (35633) Comment: PATIENT NOT FASTINGPERFORMED BY: CB [facility] Irrzbs2500 [address] RoadDublin [place] [id number] Sodium [Moles/Vol] 145 134-144 mmol/L Abnormal 07-27-2019 [facility] Medicine ( 25194) Comment: PATIENT NOT FASTINGPERFORMED BY: CB [facility] Hcjjyp6686 [address] RoadDublin [place] [id number] Urea nitrogen [Mass/Vol] 11 8-27 mg/dL Normal 07-27 [facility] Internal Medicine ( 50084) Comment: PATIENT NOT FASTINGPERFORMED BY: CB [facility] Hhaftq5693 [address] RoadDublin [place] [id number] Urea nitrogen/Creatinine [Mass 14 12-28 1 Normal 07-27-2019 [facility] Internal [facility]] Medicine ( 93535) Comment: PATIENT NOT FASTINGPERFORMED BY: CB [facility] Oetkal7074 [address] RoadDublin [place] [id number] cbc with auto diff (50183) Ordered By: Base Loader on 2019-07-27 Basophils (Bld) 0.1 0.0-0.2 {x10E3/uL} Normal 07-27-2019 Co mprehensive Internal [#/Vol] Medicine ( 65827) Comment: PATIENT NOT FASTINGPERFORMED BY: MARINA [facility] Btdbtp6827 [address] RoadDublin [place] [id number] Basophils/100 WBC (Bld) 1 % Normal 2019 [facility] Internal Medicine (31390) Comment: PATIENT NOT FASTINGPERFORMED BY: MARINA [facility] Jupjlo6669 [address] RoadDublin [place] [id number] Eosinophils (Bld) 0.2 0.0-0.4 {x10E3/uL} Normal 07-27-2019 [facility] Internal [#/Vol] Medicine ( 52963) Comment: PATIENT NOT FASTINGPERFORMED BY: MARINA [facility] Zkfeam3010 [address] RoadDublin [place] [id number] Eosinophils/100 WBC (Bld) 3 % Normal 07-02 [facility] Internal Medicine (65219) Comment: PATIENT NOT FASTINGPERFORMED BY: MARINA [facility] Ceasja9968 [address] RoadDublin [place] [id number] Erythrocyte distribution 12.2 11.7-15.4 % Normal 07-27 [facility] Internal width (RBC) [Ratio] Medicine (57376) Comment: PATIENT NOT FASTINGPERFORMED BY: MARINA [facility] Bbotnq1829 [address] RoadDublin [place] [id number] Hematocrit (Bld) [Volume 45.1 34.0-46.6 % Normal 07-27 [facility] Internal fraction] Medicine ( 19662) Comment: PATIENT NOT FASTINGPERFORMED BY: MARINA [facility] Szpnjr5239 [address] RoadDublin [place] [id number] Hemoglobin (Bld) 14.8 11.1-15.9 g/dL Normal 07-27-2019 [facility] [Mass/Vol] Medicine (29500) Comment: PATIENT NOT FASTINGPERFORMED BY: CB [facility] Jcowom4891 [address] RoadDublin [place] [id number] Immature granulocytes 0.0 0.0-0.1 {x10E3/uL} Normal 020 [facility] Internal (Bld) [#/Vol] Medici [place] (47528) Comment: PATIENT NOT FASTINGPERFORMED BY: CB [facility] Arauye6116 [address] RoadDublin [place] [id number] Immature granulocytes/100 WBC 0 % Normal 07-27-2019 [facility] Internal (Bld) Medicine ( 40070) Comment: PATIENT NOT FASTINGPERFORMED BY: CB [facility] Rbwulr2518 [address] RoadDublin [place] [id number] Lymphocytes (Bld) 2.1 0.7-3.1 {x10E3/uL} Normal 07-27-2019 [facility] Internal [#/Vol] Medicine ( 74923) Comment: PATIENT NOT FASTINGPERFORMED BY: CB [facility] Zqskhh3157 [address] RoadDublin [place] [id number] Lymphocytes/100 WBC (Bld) 28 % Normal 07-02 [facility] Internal Medicine (98082) Comment: PATIENT NOT FASTINGPERFORMED BY: CB [facility] Oxgswm4782 [address] [facility]in [place] [id number] MCH (RBC) [Entitic 29.7 26.6-33.0 pg Normal 07-27-2019 [facility] Internal mass] Medicine ( 85226) Comment: PATIENT NOT FASTINGPERFORMED BY: CB [facility] Bhffrw0740 [address] RoadScionhealthin [place] [id number] MCHC (RBC) [Mass/Vol] 32.8 31.5-35.7 g/dL Normal 07-27-19 [facility] Internal Medicine ( 02342) Comment: PATIENT NOT FASTINGPERFORMED BY: CB [facility] Zmeosq2106 [address] RoadScionhealthin [place] [id number] MCV (RBC) [Entitic vol] 91 79-97 fL Normal 2019 [facility] Medicine (96843) Comment: PATIENT NOT FASTINGPERFORMED BY: CB [facility] Wlvtpd3955 [address] RoadDublin [place] [id number] Monocytes (Bld) 0.6 0.1-0.9 {x10E3/uL} Normal 07-27-2019 In mprehensive Internal [#/Vol] Medicine ( 87760) Comment: PATIENT NOT FASTINGPERFORMED BY: MARINA LabCoant DominguezJljbyk4359 [address] RoadDublin [place] [id number] Monocytes/100 WBC (Bld) 8 % Normal 2019 [facility] Internal Medicine (52411) Comment: PATIENT NOT FASTINGPERFORMED BY: MARINA LabCoant DominguezVlcxaz2391 [address] RoadDublin [place] [id number] Neutrophils (Bld) 4.4 1.4-7.0 {x10E3/uL} Normal 07-27-2019 [facility] Internal [#/Vol] Medicine ( 65653) Comment: PATIENT NOT FASTINGPERFORMED BY: MARINA [facility] Zdpovm5260 [address] RoadDublin [place] [id number] Neutrophils/100 WBC (Bld) 60 % Normal 07-02 [facility] Internal Medicine (64802) Comment: PATIENT NOT FASTINGPERFORMED BY: MARINA LabAgusto DominguezEjxwyk7849 [address] RoadDublin [place] [id number] Platelets (Bld) 220 150-450 {x10E3/uL} Normal 07-27-2019 [facility] Internal [#/Vol] Medicine ( 90193) Comment: PATIENT NOT FASTINGPERFORMED BY: CB [facility] Damcmz5337 [address] RoadDublin [place] [id number] RBC (Bld) [#/Vol] 4.98 3.77-5.28 {x10E6/uL} Normal 07-27-2019 [facility] Internal Medicine ( 11567) Comment: PATIENT NOT FASTINGPERFORMED BY: CB [facility] Nsdidn7030 [address] RoadDublin [place] [id number] WBC (Bld) [#/Vol] 7.5 3.4-10.8 {x10E3/uL} Normal 07-27-2019 [facility] Internal Medicine ( 88046) Comment: PATIENT NOT FASTINGPERFORMED BY: CB [facility] Lqgiml4531 [address] RoadDublin [place] [id number] tsh (thyroid stimulating hormone) (71315 ) Ordered By: Base Loader on 2019-03-13 TSH Qn 2.460 0.450-4.500 {uIU/mL} Normal 03-13-2019 [facility] Internal Medicine (21079) Comment: PATIENT WAS FASTINGPERFORMED BY: DiaTech Oncologyton1447 [facility] [id number] BY: Erydel6370 [facility] [id number] nmr profile (39835) Ordered By: Base Loader on 2019-03-13 Cholesterol [Mass/Vol] 193 100-199 mg/dL Normal 019 [facility] Internal Medicine ( 97317) Comment: PATIENT WAS FASTINGPERFORMED BY: [employer] [facility] Vkhvkgnqob4282 [facility] [id number] BY: Erydel6370 [facility] [id number] Lipoprotein.alpha [Moles/Vol] 36.0 umol/L Normal 03-13-2019 [facility] Internal Medicine ( 61288) Comment: PATIENT WAS FASTINGPERFORMED BY: [employer] Oncologyton1447 [facility] [id number] BY: EnteGreat70 [facility] [id number] Lipoprotein.beta.subparticle 21.1 nm Normal 0 03-13-2019 [facility] [Entitic length] Int [facility] Medicine (73454) Comment: INTERPRETATIVE INFORMATION PARTICLE VICKY NTRATION AND SIZE <--Lower CVD Risk Higher CVD Risk--> LDL AND HDL PARTICLE S Percentile in Reference Population HDL-P (total) High 75th 50th 25th Low >34.9 34.9 30.5 26.7 <26.7 . Small LDL-P Low 25th 50th 75th High <117 117 527 839 >839 . LDL Size <-Large (Pattern A)-> <-Small (Pattern B)-> 23.0 2 0.6 20.5 19.0 Small LDL-P and LDL Size are associated with CVD risk, but not afterLDL-P is taken into account. .These assays were developed and their performance characteristicsdetermined by [employer]. These assays have not been cleared by [place] Food and Drug Admin istration. The clinical utility of theselaboratory values have not been fully established. PATIENT WAS FASTINGPERFORMED BY: [employer] LabYapp MediaMwlshdjxrr6592 [facility] [id number] BY: [employer]6370 [address] GoodwallAtrium Health [id number] Lipoprotein.beta.subparticle 1204 nmol/L Abnormal 0 03-13-2019 [facility] [Moles/Vol] Internal Medicine (43137) Comment: Low < 1000 Moderate 1000 - 1 299 Borderline-High 1300 - 1599 High 1600 - 2000 Very High > 2000 PATIENT WAS FASTINGPERFORMED BY: [facility] [facility] [id number] BY: [employer]6370 [facility] [id number] Lipoprotein.beta.subparticle.small 449 nmol/L Migdalia l 03-13-2019 [facility] [Moles/Vol] Internal Medicine ( 03419) Comment: PATIENT WAS FASTINGPERFORMED BY: [facility] Nlpiaupdth114[address] [id number] BY: Erydel6370 [address] GoodwallAtrium Health [id number] Triglyceride [Mass/Vol] 147 0-149 mg/dL Normal 2018 [facility] Internal Medicine ( 54775) Comment: PATIENT WAS FASTINGPERFORMED BY: LabYapp MediaRxhaveauqe026[address] [id number] BY: [employer] Sutkyl9169 [facility] [id number] 107 0-99 mg/dL Abnormal 03-13-2019 [facility] Internal Medicine (31745) Comment: . Optimal < 100 Above optima l 100 - 129 Borderline 130 - 159 High 160 - 189 Very high > 189 .LDL-C is in accurate if patient is non-fasting. PATIENT WAS FASTINGPERFORMED BY: [facility] Nijdhybymy8998 [facility] [id number] BY: CB [facility] Rcmuki8949 [facility] [id number] 57 mg/dL Normal 03-13-2019 [facility] Internal Medicine (54031) Comment: PATIENT WAS FASTINGPERFORMED BY: [facility] [address] [id number] BY: CB [employer] Bzxgwl4277 [facility] [id number] microalbumin Ordered By: Base Loader on 2019-03-13 Albumin DL <= 20 mg/L (U) <3.0 mg/dL Normal 03-01 [facility] Internal [Mass/Vol] Medicine (31143) Comment: PATIENT WAS FASTINGPERFORMED BY: [facility] [address] [id number] BY: [employer] Dtqzlf1025 [facility] [id number] Albumin/Creatinine (U) [Mass <16.5 0.0-30.0 Normal 0 03-13-2019 [facility] Internal ratio] Medicine ( 27076) Comment: Normal: 0.0 - 30.0 Albuminur ia: 31.0 - 300.0 Clinical albuminuria: >300.0 PATIENT WAS FASTINGPERFORMED BY: [employer] Energy[address] [id number] BY: CB [facility] Eaomib1381 [facility] [id number] Creatinine (U) [Mass/Vol] 18.2 mg/dL Normal 03-01 [facility] Medicine ( 24782) Comment: PATIENT WAS FASTINGPERFORMED BY: [facility] [address] [id number] BY: [facility] Efchkg3110 [facility] [id number] metabolic panel, comprehensive (79943) Ordered By: Base Loader on 2019-03-13 Albumin [Mass/Vol] 4.1 3.5-4.8 g/dL Normal 03-13-2019 [facility] (94835) Comment: PATIENT WAS FASTINGPERFORMED BY: Lab[address] [id number] BY: [facility] Nowkhq[address] [place] [id number] Albumin/Globulin [Mass 1.7 1.2-2.2 1 Normal 019 [facility] ratio] Medicine ( 09672) Comment: PATIENT WAS FASTINGPERFORMED BY: [facility] [address] [id number] BY: CB [facility] Yyxnbd6723 [address]ublin [place] [id number] ALP [Catalytic 79 39-117 [iU]/L Normal 03-13-2019 Comp rehensive Internal activity/[place]] [place] (38[address]) Comment: PATIENT WAS FASTINGPERFORMED BY: [facility]Co[address] [id number] BY: [facility] Sapixe9980 [address]Dublin [place] [id number] ALT [Catalytic 11 0-32 [iU]/L Normal 03-13-2019 Comp rehensive Internal activity/Vol] [place] (30301) Comment: PATIENT WAS FASTINGPERFORMED BY: [facility] [id number] BY: [facility] Zbelfq4397 [address]blin [place] [id number] AST [Catalytic 16 0-40 [iU]/L Normal 03-13-2019 Comp rehensive Internal activity/Vol] Medici ne (88434) Comment: PATIENT WAS FASTINGPERFORMED BY: [facility] [id number] BY: [facility] Hqkqmm9575 [address] RoadScionhealthin [place] [id number] Bilirubin [Mass/Vol] 0.4 0.0-1.2 mg/dL Normal 9 [facility] ( 07361) Comment: PATIENT WAS FASTINGPERFORMED BY: [facility] [id number] BY: [facility] Jpslcd4484 [address]ublin [place] [id number] Calcium [Mass/Vol] 9.6 8.7-10.3 mg/dL Normal 03-13-2019 [facility] Internal Medicine ( 05202) Comment: PATIENT WAS FASTINGPERFORMED BY: [facility] [address] [id number] BY: CB [facility] Bxcfet0519 [address]Dublin [place] [id number] Chloride [Moles/Vol] 102 96-106 mmol/L Normal 9 [facility] Internal Medicine ( 62640) Comment: PATIENT WAS FASTINGPERFORMED BY: [facility] [address] [id number] BY: CB [facility] Ozkhik7[address] [place] [id number] CO2 [Moles/Vol] 25 20-29 mmol/L Normal 03-13-2019 [facility] Internal Medicine (94558) Comment: PATIENT WAS FASTINGPERFORMED BY: [facility] [address] [id number] BY: [facility] Wvjeag07[address] [place] [id number] Creatinine [Mass/Vol] 0.78 0.57-1.00 mg/dL Normal 03-13-20 19 [facility] Internal Medicine ( 08769) Comment: PATIENT WAS FASTINGPERFORMED BY: [facility] [address] [id number] BY: [facility] Lgujoa8332 [address] RoadScionhealthin [place] [id number] GFR/1.73 sq M predicted 86 mL/min/1.73 Normal 03-01 [facility] Internal among blacks CKD-EPI Medicine (38391) (S/P/Bld) [Vol rate/Area] Comment: PATIENT WAS FASTINGPERFORMED BY: [facility] [address] [id number] BY: CB [facility] Rusrfk94[address] [place] [id number] GFR/1.73 sq M predicted 75 mL/min/1.73 Normal 03-01 [facility] Internal among non-blacks CKD-EPI Medicine (12091) (S/P/Bld) [Vol rate/Area] Comment: PATIENT WAS FASTINGPERFORMED BY: [facility] [id number] BY: CB [facility] Myjfgu1477 [address] [place] [id number] Globulin (S) [Mass/Vol] 2.4 1.5-4.5 g/dL Normal 2018 [facility] ( 31346) Comment: PATIENT WAS FASTINGPERFORMED BY: [facility] [id number] BY: [facility] Mposue[address] [facility] [place] [id number] Glucose [Mass/Vol] 95 65-99 mg/dL Normal 03-13-2019 [facility] (15321) Comment: PATIENT WAS FASTINGPERFORMED BY: [facility] [address] [id number] BY: [facility] Zzpnfo5796 [address] [place] [id number] Potassium [Moles/Vol] 4.8 3.5-5.2 mmol/L Normal 03-13-20 [facility] ( 98943) Comment: PATIENT WAS FASTINGPERFORMED BY: [employer] [id number] BY: [facility] Slyjae[address] [facility] [place] [id number] Protein [Mass/Vol] 6.5 6.0-8.5 g/dL Normal 03-13-2019 [facility] (62853) Comment: PATIENT WAS FASTINGPERFORMED BY: [facility] [id number] BY: CB [facility] Nwaczt1101 [address] [place] [id number] Sodium [Moles/Vol] 143 134-144 mmol/L Normal 03-13-2019 [facility] ( 26819) Comment: PATIENT WAS FASTINGPERFORMED BY: [facility] [id number] BY: [facility] Jvssbb05[address] [facility] [id number] Urea nitrogen [Mass/Vol] 10 8-27 mg/dL Normal 03-13 [facility] ( 41294) Comment: PATIENT WAS FASTINGPERFORMED BY: [facility] [id number] BY: [facility] Ewtsuv7694 [address] [facility] [id number] Urea nitrogen/Creatinine [Mass 13 06-27 1 Normal 03-13-2019 [facility] ratio] Medicine ( 97027) Comment: PATIENT WAS FASTINGPERFORMED BY: [facility] [id number] BY: [facility] Ljjdfx3122 [facility] [id number] cbc, platelets & manual diff (23393) Ordered By: Base Loader on 2019-03-13 Basophils (Bld) 0.1 0.0-0.2 {x10E3/uL} Normal 03-13-2019 [facility] Internal [#/Vol] Medicine ( 51164) Comment: PATIENT WAS FASTINGPERFORMED BY: [facility] [id number] BY: [facility] Xjeueb9639 [facility] [id number] Basophils/100 WBC (Bld) 1 % Normal 2018 [facility] (92376) Comment: PATIENT WAS FASTINGPERFORMED BY: [facility] [id number] BY: [facility] Htbyiw58[address] [facility] [id number] Eosinophils (Bld) 0.3 0.0-0.4 {x10E3/uL} Normal 03-13-2019 [facility] [#/Vol] Medicine ( 67407) Comment: PATIENT WAS FASTINGPERFORMED BY: [facility] [id number] BY: [facility] Oresam0323 [address] [facility] [id number] Eosinophils/100 WBC (Bld) 4 % Normal 03-01 [facility] (25890) Comment: PATIENT WAS FASTINGPERFORMED BY: [facility] [id number] BY: [facility]CoSaint Clare[facility] Hospital at SussexVtleyu8[address] [facility] [id number] Erythrocyte distribution 13.1 12.3-15.4 % Normal 03-13 [facility] Internal width (RBC) [Ratio] Medicine (48075) Comment: PATIENT WAS FASTINGPERFORMED BY: Lab[address] [id number] BY: LabCoSaint Clare's Hospital at SussexJdbzxq0824 [facility] [id number] Hematocrit (Bld) [Volume 40.2 34.0-46.6 % Normal 03-13 [facility] fraction] Medicine ( 41959) Comment: PATIENT WAS FASTINGPERFORMED BY: Lab[address] [id number] BY: LabCoSaint Clare's Hospital at SussexBjnrwa4843 [facility] [id number] Hemoglobin (Bld) 13.8 11.1-15.9 g/dL Normal 03-13-2019 Co mprehensive Internal [Mass/Vol] Medicine (86827) Comment: PATIENT WAS FASTINGPERFORMED BY: Lab[address] [id number] BY: LabCoSaint Clare's Hospital at SussexJwsuxh2249 [facility] [id number] Immature granulocytes 0.0 0.0-0.1 {x10E3/uL} Normal 019 [facility] Internal (Bld) [#/Vol] Medici ne (69338) Comment: PATIENT WAS FASTINGPERFORMED BY: Lab[address] [id number] BY: LabCoSaint Clare's Hospital at SussexWhpnjy5789 [facility] [id number] Immature granulocytes/100 WBC 0 % Normal 03-13-2019 [facility] (Bld) Medicine ( 99860) Comment: PATIENT WAS FASTINGPERFORMED BY: [facility] [id number] BY: LabCoSaint Clare's Hospital at SussexNmkyoj4797 [facility] [id number] Lymphocytes (Bld) 2.4 0.7-3.1 {x10E3/uL} Normal 03-13-2019 [facility] [#/Vol] Medicine ( 90577) Comment: PATIENT WAS FASTINGPERFORMED BY: Lab[address] [id number] BY: [facility] Gogdyj3832 [facility] [id number] Lymphocytes/100 WBC (Bld) 32 % Normal 03-01 [facility] (70138) Comment: PATIENT WAS FASTINGPERFORMED BY: Lab[address] [id number] BY: LabCoSaint Clare's Hospital at SussexQepqdj2936 [facility] [id number] MCH (RBC) [Entitic 30.7 26.6-33.0 pg Normal 03-13-2019 [facility] mass] Medicine ( 75573) Comment: PATIENT WAS FASTINGPERFORMED BY: Lab[address] [id number] BY: LabCoSaint Clare's Hospital at SussexHokodv8268 [facility] [id number] MCHC (RBC) [Mass/Vol] 34.3 31.5-35.7 g/dL Normal 03-13-20 19 [facility] ( 93249) Comment: PATIENT WAS FASTINGPERFORMED BY: Lab[address] [id number] BY: LabCoSaint Clare's Hospital at SussexOenayg0675 [facility] [id number] MCV (RBC) [Entitic vol] 89 79-97 fL Normal 2018 [facility] (04093) Comment: PATIENT WAS FASTINGPERFORMED BY: [address] [id number] BY: [facility] Sphxgv1584 [address]Dublin [place] [id number] Monocytes (Bld) 0.5 0.1-0.9 {x10E3/uL} Normal 03-13-2019 [facility] Internal [#/Vol] Medicine ( 22506) Comment: PATIENT WAS FASTINGPERFORMED BY: [address] [id number] BY: [facility] Ssjwnq6523 [address] RoadDublin [place] [id number] Monocytes/100 WBC (Bld) 7 % Normal 2018 [facility] Internal Medicine (45389) Comment: PATIENT WAS FASTINGPERFORMED BY: [address] [id number] BY: [facility] Jcjien2876 [address]Dublin [place] [id number] Neutrophils (Bld) 4.0 1.4-7.0 {x10E3/uL} Normal 03-13-2019 [facility] Internal [#/Vol] Medicine ( 01965) Comment: PATIENT WAS FASTINGPERFORMED BY: [address] [id number] BY: LabSaint Mary'S Health CenterPrclkr5093 [address] [place] [id number] Neutrophils/100 WBC (Bld) 56 % Normal 03-01 [facility] Internal Medicine (46255) Comment: PATIENT WAS FASTINGPERFORMED BY: Lab[address] [id number] BY: [facility] Fivgod2446 [address]Dublin [place] [id number] Platelets (Bld) 199 150-450 {x10E3/uL} Normal 03-13-2019 [facility] Internal [#/Vol] Medicine ( 68195) Comment: PATIENT WAS FASTINGPERFORMED BY: Lab[address] [id number] BY: [facility] Fthjvh8504 [address]Dublin [place] [id number] RBC (Bld) [#/Vol] 4.50 3.77-5.28 {x10E6/uL} Normal 03-13-2019 [facility] Internal Medicine ( 23023) Comment: PATIENT WAS FASTINGPERFORMED BY: [facility] Haroxadnko3292 [facility] [id number] BY: LabCoSaint Clare's Hospital at SussexChvvqi4447 [facility] [id number] WBC (Bld) [#/Vol] 7.3 3.4-10.8 {x10E3/uL} Normal 03-13-2019 [facility] Internal Medicine ( 58868) Comment: PATIENT WAS FASTINGPERFORMED BY: [facility] Facqsgazam0344 [facility] [id number] BY: [facility] Dthzsb4037 [facility] [id number] progress on 2018-11 Protein mass conc HNO ID: [id number] Normal [facility] Author: Yudi Hameed ([id number]) Service: ? Author Type: Manager Transfusion Type: Progress Notes Filed: 12/23/2018 1:14 PM Note Text: POPULATION HEALTH WAITER/WAITRESS TOURIST CLASS QUICKNOTE Provider Action/FYI: I spoke with Toma and she states she's switched PCPs. She's currently seeing Dr. Anderson. PCP filed updated. Patient identified by name and . Yudi Jeff CMA progress on 2018-11 Protein mass conc HNO ID: [id number] Normal [facility] Author: Yudi Hameed ([id number]) Service: ? Author Type: Manager Transfusion Type: Progress Notes Filed: 12/23/2018 1:14 PM Note Text: POPULATION HEALTH WAITER/WAITRESS TOURIST CLASS QUICKNOTE Provider Action/FYI: Patient identified by name and . 1st attempt - MyChart message sent. Yudi Jeff CMA Protein mass conc HNO ID: [id number] Normal [facility] Author: Yudi Hameed ([id number]) Service: ? Author Type: Manager Transfusion Type: Progress Notes Filed: 12/23/2018 1:14 PM Note Text: PHMA CARE GAP REGISTRY DOCUMENTATION (OUTSIDE TEAMLET) Provider Action/FYI: PSR Action/FYI: - due for follow up anytime or medicare wellness around 2018 Health Maintenance Due: DTAP,TDAP,TD(1 - Tdap) due on 05/12/2008 FECAL OCCULT BLOOD due on 07/12/2018 Patient identified by name and date of . Last BP/Labs: Blood Pressure: Last 3 Encounter BP Readings: Date: BP: 02/03/2018 122/76 10/17/2017 130/86 08/29/2017 142/82[#6 (from [facility])[ Lipids: Cholesterol, Total (mg/dL) Date Value 07/29/2017 213 08/03/2016 199 HDL Cholesterol (mg/dL) Date Value 07/29/2017 66 08/03/2016 58 LDL Cholesterol (mg/dL) Date Value 07/29/2017 120 08/03/2016 110 Triglyceride (mg/dL) Date Value 07/29/2017 136 08/03/2016 156 HGB A1C: No results found for: HBA1C TSH: TSH (uU/mL) Date Value 02/03/2018 3.000 01/22/2017 1.390 ) ? Patient has the following care gap registry disease diagno sis:HTN ? Hyperlipidemia ? Hypothyroidism ? Patient has the following open care gaps: Health Maintenance Due: DTAP,TDAP,TD(1 - Tdap) due on 05/12/2008 FECAL OCCULT BLOOD due on 07/12/2018 ? Last office visit: 02/03/2018 ? Future office visit:Follow-up or medicare wellness around 02/06 next available with Provider pcp or decorative cutting machine tender SÁNCHEZ Tang on 201 03-06-20 CNPTOUTREACH Patient Outreach (INTMWS) Normal 0 12-18-2018 [place] TOMA Goodwin I ([id number]) 1945 [facility] Date Time Provider Department ([id number]) 12/18/18 YUDI JEFF) INTMWS During your visit today, we recorded the following informati on about you: Yudi Jeff CMA 12/23/2018 1:14 PM Signed [facility] CARE GAP REGISTRY DOCUMENTATION (OUTSIDE TEAMLET) Provider Action/FYI: PSR Action/FYI: - due for follow up anytime or medicare wellness around 2018 Health Maintenance Due: DTAP,TDAP,TD(1 - Tdap) due on 05/12/2008 FECAL OCCULT BLOOD due on 07/12/2018 Patient identified by name and date of . Last BP/Labs: Blood Pressure: Last 3 Encounter BP Readings: Date: BP: 02/03/2018 122/76 10/17/2017 130/86 08/29/2017 142/82[#6 (from [facility])[ Lipids: Cholesterol, Total (mg/dL) Date Value 07/29/2017 213 08/03/2016 199 HDL Cholesterol (mg/dL) Date Value 07/29/2017 66 08/03/2016 58 LDL Cholesterol (mg/dL) Date Value 07/29/2017 120 08/03/2016 110 Triglyceride (mg/dL) Date Value 07/29/2017 136 08/03/2016 156 HGB A1C: No results found for: HBA1C TSH: TSH (uU/mL) Date Value 02/03/2018 3.000 01/22/2017 1.390 ) ? Patient has the following care gap registry disease diagno sis:HTN ? Hyperlipidemia ? Hypothyroidism ? Patient has the following open care gaps: Health Maintenance Due: DTAP,TDAP,TD(1 - Tdap) due on 05/12/2008 FECAL OCCULT BLOOD due on 07/12/2018 ? Last office visit: 02/03/2018 ? Future office visit:Follow-up or medic are wellness around 02/06 next available with Provider pcp or decorative cutting machine tender SÁNCHEZ Tang CMA 12/23/2018 1:14 PM Signed POPULATION HEALTH WAITER/WAITRESS TOURIST CLASS QUICKNOTE Provider Action/FYI: Patient identified by name and . 1st attempt - MyChart message sent. SÁNCHEZ Tang CMA 12/23/2018 1:14 PM Signed POPULATION HEALTH WAITER/WAITRESS TOURIST CLASS QUICKNOTE Provider Action/FYI: I spoke with Toma and she states she's switched PCPs. She's currently seeing Dr. Anderson. PCP filed updated. Patient identified by name and . Yudi Jeff CMA Allergies As of Date: 12/18/2018 Noted Allergy Reaction HCTZ (AMILORIDE-HYDROCHLOROTHIAZI*02/03/2018 14 - Other: See Comments Comments: visual NABUMETONE 09/28/2006 2 - Rash ULTRAM (TRAMADOL) 10/01/2006 2 - Rash 9 - Itching ZYBAN (BUPROPION (SMOKING DETER)) 05/01/2005 2 - Rash Date Reviewed: 02/03/2018 Reviewed by: Gisselle Davis LPN - Fully Assessed Reason for Visit: PHMA/Care Gap Outreach [3605] Prescriptions as of 12/18/2018 Sig: LOSARTAN 50 MG TABLET Take 1 tablet by mouth once d* DIAZEPAM 10 MG TABLET Take 1 tablet by mouth every * LEVOTHYROXINE 88 MCG TABLET Take one(1) tablet daily nov * CHOLECALCIFEROL (VITAMIN D3) * Take 400 Units by mouth once * ALBUTEROL SULFATE HFA 90 MCG/* Inhale 2 Puffs as instructed * * CALCIUM 600 + D 600 MG (1,500* Take one(1) tablet two(2) t im* Problem List As Of Date 12/18/2018 Noted Resolved Hypothyroidism [E03.9] INVALID FOR* More... Esophageal reflux [K21.9] INVALID FOR* More... CHOLELITHIASIS NOS [K80.20] INVALID FOR* Tobacco use disorder [F17.200] INVALID FOR* More... Disorder of bone and cartilage [M89.9, M94.9] More... Vitamin D deficiency [E55.9] INVALID FOR* More... 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 Blood per rectum [K62.5] INVALID FOR* More... Osteopenia [M85.80] INVALID FOR* More... Mixed hyperlipidemia [E78.2] INVALID FOR* Essential hypertension [I10] INVALID FOR* Encounter Status:Closed by YUDI JEFF CMA on 12/23/18 urine ally culture-identificatn (44580) Ordered By: Base Loader on 2018-10-03 Bacteria identified Cx Final report Normal [facility] Nom (U) Medicine ( 27230) Comment: PATIENT NOT FASTINGPERFORMED BY: CB [facility] Yalsgv4059 [facility] [id number] Information: SRC:UC Bacteria identified Cx Nom NG36 Normal [facility] (U) Medicine ( 43165) Comment: No growth in 36 - 48 hours. PATIENT NOT FASTINGPERFORMED BY: CB [facility] Ncyuid5848 [address] [facility] [id number] Information: SRC: urinalysis, office (96792) Ordered By: Ruth Lee on 2018-10-03 Bilirubin Ql (U) Negative Normal 10-03-2018 Co mprehensive Internal Medicine ( 49286) Glucose Test strip mass Negative Normal 2018 [facility] conc (U) Medicine ( 14127) Hemoglobin Ql (U) +++ Abnormal 10-03-2018 C omprehensive Internal Medicine ( 48595) Ketones Ql (U) Negative Normal 10-03-2018 Comp rehensive Internal Medicine ( 88657) Leukocyte esterase Test Moderate Normal 2018 [facility] Internal strip Ql (U) Medicin e (29260) Nitrite Ql (U) Negative Normal 10-03-2018 Comp rehensive Internal Medicine ( 45139) pH (U) 6 1 Abnormal 10-03-2018 Comprehen [facility] ( 90726) Protein Ql (U) Negative Normal 10-03-2018 Comp rehensive Internal Medicine ( 45540) Specific gravity Relative 1.025 1 Normal 0 [facility] Density (U) Medicine (14648) Urobilinogen mass/time Normal Normal 019 [facility] (24H U) Medicine ( 57214) metanephrines - urine (31085) Ordered By: Base Loader on 2018-02-27 Metanephrine mass/time 185 45-290 {ug/24_hr} Normal 2017 [facility] (24H U) Medicine ( 87538) Comment: (Hypertensive) >17 years 11 months: 35 - 460 PATIENT NOT FASTINGPERFORMED BY: BN [facility] Zucnsynqcx8553 [facility] [id number] Metanephrines mass conc (24H 74 ug/L Normal 0 02-27-2018 [facility] U) Medicine ( 41077) Comment: PATIENT NOT FASTINGPERFORMED BY: BN [facility] Zwjgviosfq3020 [facility] [id number] Normetanephrine mass conc 192 ug/L Normal 01-31 [facility] Internal (24H U) Medicine ( 91503) Comment: PATIENT NOT FASTINGPERFORMED BY: BN [facility] Tzxnuekgog4937 [facility] [id number] Normetanephrine 480 82-500 {ug/24_hr} Normal 02-27-2018 Co mprehensive mass/time (24H U) In ternal Medicine (84928) Comment: (Hypertensive) >17 years 11 months: 110 - 1050 PATIENT NOT FASTINGPERFORMED BY: BN [facility] Xkbvlblyjs9307 [facility] [id number] catecholamines total, urine (91569) Ordered By: Base Loader on 2018-02-27 Dopamine mass conc (U) 101 ug/L Normal 018 [facility] Medicine (95445) Comment: PATIENT NOT FASTINGPERFORMED BY: BN [facility] Oaptpspyfv7955 [facility] [id number] Information: START 02/27/18@715AM Dopamine mass/time 253 0-510 {ug/24_hr} Normal 02-27-2018 [facility] (24H U) Medicine ( 95114) Comment: PATIENT NOT FASTINGPERFORMED BY: BN [facility] Ajxzjbodgg0599 [facility] [id number] Information: START 02/27/18@715AM Epinephrine mass conc (U) 3 ug/L Normal 01-31 [facility] Medicine (12388) Comment: PATIENT NOT FASTINGPERFORMED BY: BN [facility] Jmuhlhcevk1357 [facility] [id number] Information: START 02/27/18@715AM Epinephrine mass/time 8 0-20 {ug/24_hr} Normal 018 [facility] (24H U) Medicine ( 41481) Comment: PATIENT NOT FASTINGPERFORMED BY: BN [facility] Fgkjstsggt1591 [facility] [id number] Information: START 02/27/18@715AM Norepinephrine mass conc (U) 26 ug/L Normal 0 02-27-2018 [facility] ( 67221) Comment: PATIENT NOT FASTINGPERFORMED BY: [employer] [id number] Information: START 02/27/18@715AM Norepinephrine mass/time 65 0-135 {ug/24_hr} Normal 01-31 [facility] (24H U) Medicine ( 72957) Comment: PATIENT NOT FASTINGPERFORMED BY: [employer] [id number] Information: START 02/27/18@715AM tsh (02256) Ordered By: Base Loader on 2018-02-26 Thyrotropin Qn 2.590 0.450-4.500 {uIU/mL} Normal 02-26-2018 [facility] ( 09415) Comment: PATIENT NOT FASTINGPERFORMED BY: Billeo70 [facility] [id number] BY: [employer] [id number] renin (59576) Ordere d By: Base Loader on 2018-02-26 Renin enzyme 22.903 0.167-5.380 {ng/mL/hr} Abnormal 02-26-2018 [facility] prehensive act/vol (P) Internal Medicine (55440) Comment: This test was developed and its performance characteristicsdetermined by [employer]. It has not been rhett ared or approvedby the Food and Drug Administration. PATIENT NOT FASTINGPERFORMED BY: [employer] Lefrjn7765 [facility] [id number] BY: [employer] [id number] urinalysis, w/ micro (10135) Ordered By: Base Loader on 2018-02-25 Appearance Nom (U) Clear Normal 02-25-2018 [facility] (12341) Comment: PATIENT WAS FASTINGPERFORMED BY: [employer] Jnsinu6761 [facility] [id number] Bilirubin Ql (U) Negative Normal 02-25-2018 Co [facility]sehens[facility] Internal Medicine (03888) Comment: PATIENT WAS FASTINGPERFORMED BY: CB [facility] Gezvaw8981 [address]Dublin [place] [id number] Color Nom (U) Yellow Normal 02-25-2018 [facility] Internal Medicine (82509) Comment: PATIENT WAS FASTINGPERFORMED BY: CB [facility] Aglduu1975 [address] [place] [id number] Glucose Ql (U) Negative Normal 02-25-2018 [facility] Internal Medicine (93354) Comment: PATIENT WAS FASTINGPERFORMED BY: CB [facility] Bxecmj0430 [address]Dublin [place] [id number] Hemoglobin Ql (U) Negative Normal 02-25-2018 C [facility] Internal Medicine (73999) Comment: PATIENT WAS FASTINGPERFORMED BY: CB [facility] Mvghgu7488 [address] RoadD[address] [place] [id number] Ketones Ql (U) Negative Normal 02-25-2018 [facility] Internal [facility] (13362) Comment: PATIENT WAS FASTINGPERFORMED BY: CB [facility] Xjkicd7224 [address] RoadDublin [place] [id number] Leukocyte esterase Test Trace Abnormal 2017 [facility] Internal strip Ql (U) Medicin e (57129) Comment: PATIENT WAS FASTINGPERFORMED BY: CB [facility] Fnflqw8463 [address] RoadDublin [place] [id number] Microscopic observation See below: Normal 02-25 [facility] Internal LM Nom (Urine sed) M edicine (10542) Comment: Microscopic was indicated an d was performed. PATIENT WAS FASTINGPERFORMED BY: CB [facility] Ahaiqa8884 [address] RoadDublin [place] [id number] Nitrite Ql (U) Negative Normal 02-25-2018 [facility] Internal Medicine (08676) Comment: PATIENT WAS FASTINGPERFORMED BY: CB [facility] Pvcsva6325 [address] RoadDublin [place] [id number] pH (U) 7.0 5.0-7.5 1 Normal 02-25-2018 [facility] Internal Medicine (24785) Comment: PATIENT WAS FASTINGPERFORMED BY: CB [facility] Bqewxa6259 [address] RoadDublin [place] [id number] Protein Ql (U) Negative Normal 02-25-2018 Comp rehensive Internal Medicine (48865) Comment: PATIENT WAS FASTINGPERFORMED BY: MARINA [facility] Lbvnvz4143 [address] [place] [id number] Specific gravity 1.010 1.005-1.030 1 Normal 02-25-2018 [facility] Internal Relative Density (U) Medicine (30103) Comment: PATIENT WAS FASTINGPERFORMED BY: MARINA [facility] Hhjuje23[address] [facility] [id number] Urobilinogen Test strip 0.2 0.2-1.0 mg/dL Normal 2017 [facility] Internal mass conc (U) Medici ne (27467) Comment: PATIENT WAS FASTINGPERFORMED BY: MARINA [facility] Pnakay4813 [address] [facility] [id number] urinalysis, w/ micro (26366) on 2018-02-25 Hemoglobin Test strip Negative Normal 02-26-20 18 [facility] Internal Ql (U) Medicine ( 52624) Nitrite Test strip Ql Negative Normal 02-26-20 18 [facility] Internal (U) Medicine ( 08153) pH Test strip (U) 7.0 5.0-7.5 1 Normal 02-25-2018 [facility]rehens[facility] Internal Medicine ( 59419) Protein Test strip Ql Negative Normal 02-26-20 18 [facility] Internal (U) Medicine ( 39648) microscopic examination on 2018-02-25 Bacteria LM.HPF #/area Few Normal 02-25- 018 [facility] Internal Medicine (Urine sed) (10106) Comment: PATIENT WAS FASTINGPERFORMED BY: MARINA [facility] Gqjjom2837 [facility] [id number] Epithelial cells LM.HPF 0-10 0 - 10 Normal 2017 [facility] Internal #/area (Urine sed) M edicine (23720) Comment: PATIENT WAS FASTINGPERFORMED BY: MARINA [facility] Vrvimv8631 [address] [facility] [place] [id number] RBC LM.HPF #/area (Urine 0-2 0 - 2 Normal 02-25 [facility] Internal Medicine sed) (76576) Comment: PATIENT WAS FASTINGPERFORMED BY: MARINA [facility] Fsodat4904 [address] [facility] [id number] WBC LM.HPF #/area (Urine 0-5 0 - 5 Normal 02-25 [facility] Internal Medicine sed) (71739) Comment: PATIENT WAS FASTINGPERFORMED BY: CB [facility] Buzxfw4852 [address] RoadDublin [place] [id number] microalbumin Ordered By: Base Loader on 2018-02-25 Albumin DL <= 20 mg/L <3.0 mg/dL Normal 02-26-20 18 [facility] Internal mass conc (U) Medici ne (75885) Comment: PATIENT WAS FASTINGPERFORMED BY: CB [facility] Ibcalr1699 [address] RoadDublin [place] [id number] Albumin/Creatinine mass <10.7 0.0-30.0 Normal 2017 [facility] Internal ratio (U) Medicine ( 52993) Comment: PATIENT WAS FASTINGPERFORMED BY: CB [facility] Hyxccz5429 [address] RoadDublin [place] [id number] Creatinine mass conc (U) 28.0 mg/dL Normal 02-25 [facility] Internal Medicine ( 79767) Comment: PATIENT WAS FASTINGPERFORMED BY: CB [facility] Gdosbd6453 [address] RoadDublin [place] [id number] metabolic panel, comprehensive (05473) Ordered By: Base Loader on 2018-02-25 Albumin mass conc 4.4 3.5-4.8 g/dL Normal 02-25-2018 [facility] Internal Medicine (62319) Comment: PATIENT WAS FASTINGPERFORMED BY: CB [facility] Nomsda3143 [address] RoadDublin [place] [id number] Albumin/Globulin mass ratio 2.0 1.2-2.2 1 Normal [facility] Internal Medicine ( 35828) Comment: PATIENT WAS FASTINGPERFORMED BY: CB [facility] Fleffc4786 [address] RoadDublin [place] [id number] ALP enzyme act/vol 84 39-117 [iU]/L Normal 02-25-2018 [facility] Internal Medicine (06523) Comment: PATIENT WAS FASTINGPERFORMED BY: CB [facility] Qkzbmk5829 [address] RoadDublin [place] [id number] ALT enzyme act/vol 11 0-32 [iU]/L Normal 08-28-2018 [facility] Internal Medicine (49765) Comment: PATIENT WAS FASTINGPERFORMED BY: CB [facility] Kbkacw1769 [address] RoadDublin [place] [id number] AST enzyme act/vol 16 0-40 [iU]/L Normal 02-25-2018 [facility] Internal Medicine (07720) Comment: PATIENT WAS FASTINGPERFORMED BY: CB [facility] Mhejoy5990 [address] RoadDublin [place] [id number] Bilirubin mass conc 0.4 0.0-1.2 mg/dL Normal 02-25-2018 [facility] Internal Medicine ( 03543) Comment: PATIENT WAS FASTINGPERFORMED BY: CB [facility] Qqzeip6525 [address] RoadDublin [place] [id number] Calcium mass conc 9.7 8.7-10.3 mg/dL Normal 02-25-2018 [facility] Internal Medicine ( 68327) Comment: PATIENT WAS FASTINGPERFORMED BY: CB [facility] Zjaaog6245 [address] RoadDublin [place] [id number] Chloride molar conc 101 96-106 mmol/L Normal 02-25-2018 [facility] Internal Medicine ( 34669) Comment: PATIENT WAS FASTINGPERFORMED BY: CB [facility] Czzyfk7206 [address] RoadDublin [place] [id number] CO2 molar conc 25 20-29 mmol/L Normal 02-25-2018 [facility] Internal Medicine (40294) Comment: PATIENT WAS FASTINGPERFORMED BY: CB [facility] Ecsflr5222 [address] RoadDublin [place] [id number] Creatinine mass conc 0.77 0.57-1.00 mg/dL Normal 8 [facility] Internal Medicine ( 27919) Comment: PATIENT WAS FASTINGPERFORMED BY: CB [facility] Hwqbby6444 [address] RoadDublin [place] [id number] GFR/1.73 sq M predicted 88 mL/min/1.73 Normal 01-30 Comprehensive Internal among blacks CKD-EPI Medicine (94085) vol rate/area (S/P/Bld) Comment: PATIENT WAS FASTINGPERFORMED BY: CB [facility] Jrupve4830 [address] RoadDublin [place] [id number] GFR/1.73 sq M predicted 76 mL/min/1.73 Normal 01-30 [facility] Internal among non-blacks CKD-EPI Medicine (14030) vol rate/area (S/P/Bld) Comment: PATIENT WAS FASTINGPERFORMED BY: MARINA [facility] Fggfmr6424 [address] Roadblin [place] [id number] Globulin mass conc (S) 2.2 1.5-4.5 g/dL Normal 018 [facility] Internal Medicine ( 82727) Comment: PATIENT WAS FASTINGPERFORMED BY: CB [facility] Rjfjwd7886 [address] [facility] [place] [id number] Glucose mass conc 87 65-99 mg/dL Normal 02-25-2018 [facility] Internal Medicine (32507) Comment: PATIENT WAS FASTINGPERFORMED BY: MARINA [facility] Umnubc8116 [address] [facility]bl[facility] [place] [id number] Potassium molar conc 4.8 3.5-5.2 mmol/L Normal 8 [facility] Internal Medicine ( 93149) Comment: PATIENT WAS FASTINGPERFORMED BY: MARINA [facility] Svecbp2580 [address] [facility] [place] [id number] Protein mass conc 6.6 6.0-8.5 g/dL Normal 02-25-2018 [facility] Internal Medicine (12816) Comment: PATIENT WAS FASTINGPERFORMED BY: MARINA [facility] Hdwimh9046 [address] [facility]bl[facility] [place] [id number] Sodium molar conc 142 134-144 mmol/L Normal 02-25-2018 [facility] Internal Medicine ( 63085) Comment: PATIENT WAS FASTINGPERFORMED BY: MARINA [facility] Oupjez4157 [address] [facility] [place] [id number] Urea nitrogen mass conc 10 8-27 mg/dL Normal 2017 [facility] Internal Medicine ( 10266) Comment: PATIENT WAS FASTINGPERFORMED BY: CB [facility] Emijek0065 [address] [facility]bl[facility] [place] [id number] Urea nitrogen/Creatinine mass 13 06-27 1 Normal 02-25-2018 [facility] Internal ratio Medicine ( 85640) Comment: PATIENT WAS FASTINGPERFORMED BY: MARINA [facility] Mixbuf2401 [address] [facility] [place] [id number] metabolic panel, comprehensive (49132) on 2018-02-25 Globulin Calculated mass 2.2 1.5-4.5 g/dL Normal 02-25 [facility] Internal [facility] (S) Medicine ( 71372) lipid panel (81901) Ordered By: Base Loader on 2018-02-25 Cholesterol in HDL mass 54 mg/dL Normal 2017 [facility] Internal [facility] Medicine ( 65157) Comment: PATIENT WAS FASTINGPERFORMED BY: CB [facility] Znlzzq0078 [address] RoadDublin [place] [id number] Cholesterol in LDL mass 112 0-99 mg/dL Abnormal 2017 [facility] Internal [facility] Medicine ( 83614) Comment: PATIENT WAS FASTINGPERFORMED BY: CB [facility] Pxsssb7617 [address] RoadDublin [place] [id number] Cholesterol in 2.1 0.0-3.2 {ratio} Normal 02-25-2018 [facility] Internal LDL/Cholesterol in HDL Medicine (42808) mass ratio Comment: LDL/HDL Ratio Men Women 1/2 Avg.Risk 1.0 1.5 Avg.Risk 3.6 3.2 2X Avg.Risk 6.2 5.0 3X Avg.Risk 8.0 6.1 PATIENT WAS FASTINGPERFORMED BY: MARINA [facility] Utpywz8687 [address] RoadDublin [place] [id number] Cholesterol in VLDL mass 36 5-40 mg/dL Normal 02-25 [facility] Internal [facility] Medicine ( 89628) Comment: PATIENT WAS FASTINGPERFORMED BY: CB [facility] Otajqu6305 [address] RoadDublin [place] [id number] Cholesterol mass conc 202 100-199 mg/dL Abnormal 02-26-20 18 [facility] Internal Medicine ( 92545) Comment: PATIENT WAS FASTINGPERFORMED BY: CB [facility] Hufcpp2067 [address] RoadDublin [place] [id number] Triglyceride mass conc 182 0-149 mg/dL Abnormal 018 [facility] Internal Medicine ( 25106) Comment: PATIENT WAS FASTINGPERFORMED BY: CB [facility] Ejgobe9351 [address] RoadDublin [place] [id number] cbc w/auto diff wbc (90181) Ordered By: Base Loader on 2018-02-25 Basophils #/vol 0.1 0.0-0.2 {x10E3/uL} Normal 02-25-2018 Co mprehensive Internal (Bld) Medicine ( 39166) Comment: PATIENT WAS FASTINGPERFORMED BY: MARINA [facility] Nyucxe4942 [address] RoadDublin [place] [id number] Basophils/100 WBC (Bld) 1 % Normal 2017 [facility] Internal Medicine (16050) Comment: PATIENT WAS FASTINGPERFORMED BY: CB [facility] Emhjdp0808 [address] RoadDublin [place] [id number] Eosinophils #/vol 0.1 0.0-0.4 {x10E3/uL} Normal 02-25-2018 [facility] Internal (Bld) Medicine ( 98447) Comment: PATIENT WAS FASTINGPERFORMED BY: MARINA [facility] Iphixg3629 [address] Roadbl[address] [place] [id number] Eosinophils/100 WBC (Bld) 2 % Normal 01-30 [facility] Internal Medicine (68569) Comment: PATIENT WAS FASTINGPERFORMED BY: MARINA [facility] Metqjq5952 [address] [facility] [place] [id number] Erythrocyte distribution 13.3 12.3-15.4 % Normal 02-25 [facility] Internal width Ratio (RBC) Ak dicine (17513) Comment: PATIENT WAS FASTINGPERFORMED BY: MARINA [facility] Hrmftc6953 [address] [facility] [place] [id number] Hematocrit Volume 42.8 34.0-46.6 % Normal 02-25-2018 C omprehensive Internal Fraction (Bld) Medic ine (77087) Comment: PATIENT WAS FASTINGPERFORMED BY: MARINA [facility] Mtcjjf1166 [address] [facility] [place] [id number] Hemoglobin mass conc 14.8 11.1-15.9 g/dL Normal 8 [facility] Internal (Bld) Medicine ( 65875) Comment: PATIENT WAS FASTINGPERFORMED BY: CB [facility] Wdnpyr6406 [address] RoadDublin [place] [id number] Immature granulocytes 0.0 0.0-0.1 {x10E3/uL} Normal 018 [facility] Internal #/vol (Bld) Medicine (39907) Comment: PATIENT WAS FASTINGPERFORMED BY: CB [facility] Atszgg5065 [address] RoadDublin [place] [id number] Immature granulocytes/100 WBC 0 % Normal 02-25-2018 [facility] Internal ([facility]) Medicine ( 96632) Comment: PATIENT WAS FASTINGPERFORMED BY: MARINA Matteo Kpvlyr5024 [facility] [id number] Lymphocytes #/vol 2.4 0.7-3.1 {x10E3/uL} Normal 02-25-2018 [facility] Internal ([facility]) Medicine ( 68475) Comment: PATIENT WAS FASTINGPERFORMED BY: MARINA [facility] Sbwpsb8736 [facility] [id number] Lymphocytes/100 WBC (d) 28 % Normal 01-30 [facility] Internal Medicine (60117) Comment: PATIENT WAS FASTINGPERFORMED BY: MARINA [facility]lySt[facility] Njwlhi6649 [facility] [id number] MCH Entitic mass (RBC) 30.6 26.6-33.0 pg Normal 018 [facility] Internal Medicine ( 56998) Comment: PATIENT WAS FASTINGPERFORMED BY: MARINA [facility]lySt[facility] Crujyo7812 [facility] [id number] MCHC mass conc (RBC) 34.6 31.5-35.7 g/dL Normal 8 [facility] Internal Medicine ( 77066) Comment: PATIENT WAS FASTINGPERFORMED BY: MARINA [facility]lySt[facility] Vgpmsr5278 [facility] [id number] MCV Entitic volume (RBC) 88 79-97 fL Normal 02-25 [facility] Internal Medicine ( 82151) Comment: PATIENT WAS FASTINGPERFORMED BY: MARINA [place]lyChe[place] 5700970 [facility] [id number] Monocytes #/vol 0.6 0.1-0.9 {x10E3/uL} Normal 02-25-2018 [facility] Internal ([facility]) Medicine ( 01674) Comment: PATIENT WAS FASTINGPERFORMED BY: MARINA [facility]lySt[facility] Qpmett4755 [facility] [id number] Monocytes/100 WBC (d) 7 % Normal 2017 [facility] Internal Medicine (71110) Comment: PATIENT WAS FASTINGPERFORMED BY: MARINA [address] [place] [id number] Neutrophils #/vol 5.4 1.4-7.0 {x10E3/uL} Normal 02-25-2018 [facility] Internal ([facility]) Medicine ( 94145) Comment: PATIENT WAS FASTINGPERFORMED BY: [facility]6370 [facility] [id number] Neutrophils/100 WBC (Bld) 62 % Normal 01-30 [facility] Internal Medicine (75173) Comment: PATIENT WAS FASTINGPERFORMED BY: LabCoSaint Clare's Hospital at SussexQpecpd2190 [facility] [id number] Platelets #/vol 218 150-379 {x10E3/uL} Normal 02-25-2018 [facility] Medicine ( 57657) Comment: PATIENT WAS FASTINGPERFORMED BY: [facility]6370 [facility] [id number] RBC #/vol (Bld) 4.84 3.77-5.28 {x10E6/uL} Normal 02-25-2018 [facility] Internal Medicine ( 61236) Comment: PATIENT WAS FASTINGPERFORMED BY: LabM[facility]6370 [facility] [id number] WBC #/vol (Bld) 8.6 3.4-10.8 {x10E3/uL} Normal 02-25-2018 [facility] Internal Medicine ( 73230) Comment: PATIENT WAS FASTINGPERFORMED BY: LabM[facility] Hospital6370 [facility] [id number] cbc w/auto diff wbc (27364) on 2018-02-25 Basophils Auto #/vol 0.1 0.0-0.2 {x10E3/uL} Normal 02-26-20 18 Comprehensive ([facility]) Internal M edicine (73064) Basophils/100 WBC 1 % Normal 02-25-2018 C omprehensive Auto (d) Internal Medicine (70446) Eosinophils Auto 0.1 0.0-0.4 {x10E3/uL} Normal 02-25-2018 C omprehensive #/vol (d) Internal Medicine (87617) Eosinophils/100 WBC 2 % Normal 02-25-2018 Comprehensive Auto (Bld) Internal Medicine (40957) Erythrocyte 13.3 12.3-15.4 % Normal 02-25-2018 Compreh ensive distribution width I nternal Medicine Auto Ratio (RBC) (44 691) Hematocrit Auto 42.8 34.0-46.6 % Normal 02-25-2018 Com prehensive Volume Fraction Inte rnal Medicine (Bld) (21645) Lymphocytes Auto 2.4 0.7-3.1 {x10E3/uL} Normal 02-25-2018 C omprehensive #/vol (Bld) Internal Medicine (07577) Lymphocytes/100 WBC 28 % Normal 02-25-2018 Comprehensive Auto (Bld) Internal Medicine (90220) MCH Auto Entitic 30.6 26.6-33.0 pg Normal 02-25-2018 Co mprehensive mass (RBC) Internal Medicine (31856) MCHC Auto mass conc 34.6 31.5-35.7 g/dL Normal 02-25-2018 Comprehensive (RBC) Internal M edicine (27322) MCV Auto Entitic 88 79-97 fL Normal 02-25-2018 Co mprehensive volume (RBC) Interna l Medicine (42519) Monocytes Auto #/vol 0.6 0.1-0.9 {x10E3/uL} Normal 02-26-20 18 Comprehensive (Bld) Internal edicine (69832) Monocytes/100 WBC 7 % Normal 02-25-2018 C omprehensive Auto (Bld) Internal Medicine (53935) Neutrophils Auto 5.4 1.4-7.0 {x10E3/uL} Normal 02-25-2018 C omprehensive #/vol (Bld) Internal Medicine (65027) Neutrophils/100 WBC 62 % Normal 02-25-2018 Comprehensive Auto (Bld) Internal Medicine (45101) Platelets Auto #/vol 218 150-379 {x10E3/uL} Normal 02-26-20 18 Comprehensive (Bld) Internal M edicine (46393) RBC Auto #/vol (Bld) 4.84 3.77-5.28 {x10E6/uL} Normal 02-26-20 18 Comprehensive Internal M edicine (81636) WBC Auto #/vol (Bld) 8.6 3.4-10.8 {x10E3/uL} Normal 02-26-20 18 Comprehensive Internal M edicine (03531) tsh on 2018-02-03 Thyrotropin Qn 3.000 0.400-5.500 uU/mL Normal 02-03-2018 Cl [facility] (30938) Comment: Performed By: #### TSH #### [facility] [address] [place], [place] [address] progress on 2018-01 Protein mass HNO ID: [id number] Normal 02-04-20 18 [facility] Author: Trudy Hernandez Service: (none) Roger monte Author Type: Physician (15722) Type: Progress Notes Filed: 02/03/2018 1:05 PM Note Text: Reason for Visit Patient presents with: Established Patient: medicare wellness visit Toam Moore is a 72 year old female [facility] Complaints.. Health Maintenance DTAP,TDAP,TD(1 - Tdap) INFLUENZA(1) Welcome To Medicare Visit Medical B eligibility date age 63 Date of last exam none in the past year PAST MEDICAL HISTORY Diagnosis Date - Calculus of gallbladder without mention of cholecystitis o r obstruction 05/01/2005 - Esophageal reflux 05/01/2005 - Osteopenia - Tobacco use disorder 05/01/2005 - Unspecified hypothyroidism 05/01/2005 Graves Disease 1990 with Radioactive Iodine - Unspecified vitamin D deficiency 02/08/2009 PAST SURGICAL HISTORY Procedure Laterality Date - PAST SURGICAL HISTORY OF 1995 foot surgery Hctz [Amiloride-Hydrochlorothiazide]; Nabumetone; Ultram [Tr amadol]; Zyban [Bupropion (Smoking Deter)] Medications reviewed: Yes FAMILY HISTORY Problem Relation Age of Onset - Alzheimer's Disease Mother SOCIAL HISTORY: Social History Marital status: Spouse name: Years of education: Number of children: Social History Main Topics Smoking status: Former Smoker Packs/day: 0.50 Years: 0.00 Types: Cigarettes Quit date: 01/19/2016 Smokeless tobacco: Never Used Alcohol use: Yes Comment: rarely Drug use: No Sexual activity: No Toma denies regular aerobic exercise. She watches her diet for sodium, low fat and low cholesterol most of the time, generally not very much. List of current specialists seen: Eye doctor- Ashley End of Live Planning discussed including patients advanced d irective wishes: Yes I am willing to follow Toma's advanced directives. Depression screen She in the past two weeks denies having felt down, depressed , hopeless or with little interest or pleasure in doing things. Functional Ability/Safety Screen 1. Was the patient's timed Up and Go test unsteady or longer than 30 seconds? No 2. Does the patient need help with the phone, transportation , shopping,preparing meals, housework, laundry, medications or managing money? No 3. Does your home have rugs in the hallway, lack of grab bar s in the bathroom, lack of handrails on the stairs or have poor light ing? No Hearing Evaluation: normal PHYSICAL EXAM BP 122/76 (BP Site: Left Arm, BP Position: Sitting, BP Cuff Size: Regular Adult) Pulse 100 Resp 12 Ht 154.9 cm (5' 1) Wt 74.8 kg (165 lb) SpO2 95% BMI 31.18 kg/m? Alert and oriented X 3: YES Body mass index is 31.18 kg/m?. ASSESSMENT/PLAN: 72 year old female The following prevention plan was discussed during the offic e visit and provided to the patient: - Glaucoma screening - Lipid panel [address] MD HPI Hypothyroidism Has hypothyroidism on the current medication she is doing we ll. Currently no signs of hypothyoidism. No constipation, depression , low energy or dryness of skin. Gave her tsh today for monitoring level ? Tobacco use disorder She is still smoking around 3 packets a week. She is bored a nd lonely. ? Her lipids were high she has cut out her sweets and desserts , ice-cream, And red meat but she eats a lot of cheese. Eats fruits and s alads. Not much of meat. ? Disorder of bone and cartilage Due for another bone density scheduled already. ? Vit d is on lower side, she takes 3 pills a day of combined calcium and vit d. ? BP is well controlled on current regimen of medicines which is tolerated well. No significant side effects Incidental finding of adrenal adenoma that needs to be follo wed up today No problem-specific Assessment AND Plan notes found for this encounter. PAST MEDICAL HISTORY Diagnosis Date - Calculus of gallbladder without mention of cholecystitis o r obstruction 05/01/2005 - Esophageal reflux 05/01/2005 - Osteopenia - Tobacco use disorder 05/01/2005 - Unspecified hypothyroidism 05/01/2005 Graves Disease 1990 with Radioactive Iodine - Unspecified vitamin D deficiency 02/08/2009 PAST SURGICAL HISTORY Procedure Laterality Date - PAST SURGICAL HISTORY OF 1995 foot surgery FAMILY HISTORY Problem Relation Age of Onset - Alzheimer's Disease Mother Social History Substance Use Topics - Smoking status: Former Smoker Packs/day: 0.50 Types: Cigarettes Quit date: 01/19/2016 - Smokeless tobacco: Never Used - Alcohol use Yes Comment: rarely Past medical history, appointments, medications, allergies r eviewed. Pertinent Lab/Diagnostic Studies are reviewed and discussed today Current Outpatient Prescriptions: - losartan (COZAAR) 50 mg tablet - Hydrochlorothiazide 12.5 mg capsule - diazePAM (VALIUM) 10 mg tablet - levothyroxine (SYNTHROID) 88 mcg tablet - Cholecalciferol, Vitamin D3, (VITAMIN D-3) 400 unit chew - albuterol HFA (PROAIR HFA) 90 mcg/actuation inhaler - Calcium Carb-Cholecalciferol (CALCIUM 600 + D) 600-200 mg- unit ORAL Tab Review of Systems CONSTITUTIONAL: No fevers, chills night sweats, unintended w eight loss CARDIOVASCULAR: No chest pain, dyspnea, palpitations, orthop melanie, PND, ankle edema. PULM: No dyspnea, unexplained cough. GI: No dysphagia/odynophagia, problematic reflux, constipati on, diarrhea, changes in stool habits, hematochezia, melena. : No new urinary complaints, including dysuria, gross ro turia or pyuria. NEURO: No new balance problems, peripheral weakness/paresthe edgar or numbness of concern. Physical Exam BP 122/76 (BP Site: Left Arm, BP Position: Sitting, BP Cuff Size: Regular Adult) Pulse 100 Resp 12 Ht 154.9 cm (5' 1) Wt 74.8 kg (165 lb) SpO2 95% BMI 31.18 kg/m? General appearance: Well appearing, alert, in no acute distr ess, well nourished. Skin: Skin color, texture, turgor normal, no suspicious rash es or lesions Head: Normocephalic, no masses, lesions, tenderness or abnor malities Eyes: Anicteric sclera. Pupils are equally round and reactiv e to light. Extraocular movements are intact. Lungs: Lungs clear to auscultation. No wheezing, rhonchi, ra les Heart: RRR without murmur, gallop, or rubs. Extremities: No deformities, edema, skin discoloration, club giles or cyanosis. Good capillary refill. ASSESSMENT/PLAN: 1. Medicare annual wellness visit, subsequent - ICD9: V70.0, ICD10: Z00.00 (primary diagnosis) - Encouraged monthly Breast Self Exam - Follow up for annual exam in one year. 2. Acquired hypothyroidism - ICD9: 244.9, ICD10: E03.9 - Instructed patient on importance of taking on an empty sto mach either first thing in the morning or at bedtime. 3. Tobacco use disorder - ICD9: 305.1, ICD10: F17.200 - Cessation encouraged. - Physiologic and physical aspects of tobacco addiction as w ell as strategies for quitting were discussed. - Counseling was given focusing on the harmful effects of th is addiction especially given the patient's medical condition(s) which wi ll be worsened because of the chemicals in tobacco. 4. Abdominal distension (gaseous) - ICD9: 787.3, ICD10: R14. 0 - CT ADRENAL WO IVCON 5. Adrenal adenoma, left - ICD9: 227.0, ICD10: D35.02 - CT ADRENAL WO IVCON 6. Osteopenia, unspecified location - ICD9: 733.90, ICD10: M 85.80 - Reviewed the need for Calcium and Vitamin D supplements an d weight bearing exercise as tolerated - VITAMIN D 25 HYDROXY 7. Essential hypertension - ICD9: 401.9, ICD10: I10 - good control - Recommended regular aerobic exercise. - Recommend home blood pressure monitoring, to bring results in on next visit - Goal of BP <130/80 - CBC + DIFF - BASIC METABOLIC PNL - LIPID PANEL BASIC 8. Mixed hyperlipidemia - ICD9: 272.2, ICD10: E78.2 Need to recheck her levels MD van VELAZQUEZ on 2018-02-03 CNOV Office Visit ([id number]) Normal 02-04-20 18 [facility] TOMA MOORE I ([id number]) 1945 F [facility] Time Provider Department ([id number]) 02/03/18 11:[address] During your visit today, we recorded the following informati on about you: Pulse Respiration Blood pressure Weight 100/minute 12/minute 122/76 74.8 kg Height 1.[address] MD 02/03/2018 1:05 PM Signed Reason for Visit Patient presents with: Established Patient: medicare wellness visit Toma Moore is a 72 year old female who [facility] Above Complaints.. Health Maintenance DTAP,TDAP,TD(1 - Tdap) INFLUENZA(1) Welcome To Medicare Visit Medical B eligibility date age 63 Date of last exam none in the past year PAST MEDICAL HISTORY Diagnosis Date - Calculus of gallbladder without mention of cholecystitis o r obstruction 05/01/2005 - Esophageal reflux 05/01/2005 - Osteopenia - Tobacco use disorder 05/01/2005 - Unspecified hypothyroidism 05/01/2005 Graves Disease 1990 with Radioactive Iodine - Unspecified vitamin D deficiency 02/08/2009 PAST SURGICAL HISTORY Procedure Laterality Date - PAST SURGICAL HISTORY OF 1996 foot surgery Hctz [Amiloride-Hydrochlorothiazide]; Nabumetone; Ultram [Tr amadol]; Zyban [Bupropion (Smoking Deter)] Medications reviewed: Yes FAMILY HISTORY Problem Relation Age of Onset - Alzheimer's Disease Mother SOCIAL HISTORY: Social History Marital status: Spouse name: Years of education: Number of children: Social History Main Topics Smoking status: Former Smoker Packs/day: 0.50 Years: 0.00 Types: Cigarettes Quit date: 01/19/2016 Smokeless tobacco: Never Used Alcohol use: Yes Comment: rarely Drug use: No Sexual activity: No Toma denies regular aerobic exercise. She watches her t for sodium, low fat and low cholesterol most of the time, generally not very much. List of current specialists seen: Eye doctor- Ashley End of Live Planning discuss ed including patients advanced directive wishes: Yes I am willing to follow Toma's advanced directives. Depression screen She in the past two weeks denies having felt down, depressed, hopeless or with little interest or pleasure in doing things. Functional Ability/Safety Screen 1. Was the patient's timed Up and Go test unstea dy or longer than 30 seconds? No 2. Does the patient need help with the phone, transportation , shopping,preparing meals, ho usework, laundry, medications or managing money? No 3. Does your home have rugs in the hallw ay, lack of grab bars in the bathroom, lack of handrails on the stairs or have poor lighting? No Hearing Evaluation: normal PHYSICAL EXAM BP 122/76 (BP Site: Left Arm, BP Position: Sitting, BP Cuff Size: Regular Adult) Pulse 100 Resp 12 Ht 154.9 cm (5' 1) Wt 74.8 kg (165 lb) SpO2 95% BMI 31.18 kg/m? Alert and oriented X 3: YES Body mass index is 31.18 kg/m?. ASSESSMENT/PLAN: 72 year old female The following prevention plan was discussed during the offic e visit and provided to the patient: - Glaucoma screening - Lipid panel [address] MD HPI Hypothyroidism Has hypothyroidism on the current medication she is do ing well. Currently no signs of hypothyoidism. No constipation, depression , low energy or dryness of skin. Gave her tsh today for monitoring level ? Tobacco use disorder She is still smoking around 3 packets a week. She is bored a nd lonely. ? Her lipids were high she has cut out her sweets and desserts , ice-cream, And red meat but she eats a lot of chees e. Eats fruits and salads. Not much of meat. ? Disorder of bone and cartilage Due for another bone density scheduled already. ? Vit d is on lower side, she takes 3 pill s a day of combined calcium and vit d. ? BP is well controlled on current regimen of medicines which is tolerated well. No significant side effects Incidental finding of adrenal adenoma that needs to be follo wed up today No problem-specific Assessment AND Plan notes found for this encounter. PAST MEDICAL HISTORY Diagnosis Date - Calculus of gallbladder without mention of cholecystitis o r obstruction 05/01/2005 - Esophageal reflux 05/01/2005 - Osteopenia - Tobacco use disorder 05/01/2005 - Unspecified hypothyroidism 05/01/2005 Graves Disease 1990 with Radioactive Iodine - Unspecified vitamin D deficiency 02/08/2009 PAST SURGICAL HISTORY Procedure Laterality Date - PAST SURGICAL HISTORY OF 1995 foot surgery FAMILY HISTORY Problem Relation Age of Onset - Alzheimer's Disease Mother Social History Substance Use Topics - Smoking status: Former Smoker Packs/day: 0.50 Types: Cigarettes Quit date: 01/19/2016 - Smokeless tobacco: Never Used - Alcohol use Yes Comment: rarely Past medical history, appointments, medications, allergies r eviewed. Pertinent Lab/Diagnostic Studies are reviewed and discussed today Current Outpatient Prescriptions: - losartan (COZAAR) 50 mg tablet - Hydrochlorothiazide 12.5 mg capsule - diazePAM (VALIUM) 10 mg tablet - levothyroxine (SYNTHROID) 88 mcg tablet - Cholecalciferol, Vitamin D3, (VITAMIN D-3) 400 unit chew - albuterol HFA (PROAIR HFA) 90 mcg/actuation inhaler - Calcium Carb-Cholecalciferol (CALCIUM 600 + D) 600-200 mg- unit ORAL Tab Review of Systems CONSTITUTIONAL: No fevers, chills night sweats, unintended w eight loss CARDIOVASCULAR: No chest pain, dyspnea, palpitations, orth opnea, PND, ankle edema. PULM: No dyspnea, unexplained cough. GI: No dysphagia/odynophagia, problematic reflux, constipati on, diarrhea, changes in stool habits, hematochezia, melena. : No new urinary complaints, including dysuria, anu s hematuria or pyuria. NEURO: No new balance problems, peripheral weakness/pa resthesias or numbness of concern. Physical Exam BP 122/76 (BP Site: Left Arm, BP Position: Sitting, BP Cuff Size: Regular Adult) Pulse 100 Resp 12 Ht 154.9 cm (5' 1) Wt 74.8 kg (165 lb) SpO2 95% BMI 31.18 kg/m? General appearance: Well lindsay earing, alert, in no acute distress, well nourished. Skin: Skin color, texture, turgor normal, no suspicious rash es or lesions Head: Normocephalic, no masses, lesions, tenderness or abnor malities Eyes: Anicteric sclera. Pupils are equally round and reactiv e to light. Extraocular movements are intact. Lungs: Lungs clear to auscultation. No wheezing, rhonchi, ra les Heart: RRR without murmur, gallop, or rubs. Extremities: No deformities, edema, skin discolo ration, clubbing or cyanosis. Good capillary refill. ASSESSMENT/PLAN: 1. Medicare annual wellness visit, subsequent - ICD9: V70.0, ICD10: Z00.00 (primary diagnosis) - Encouraged monthly Breast Self Exam - Follow up for annual exam in one year. 2. Acquired hypothyroidism - ICD9: 244.9, ICD10: E03.9 - Instructed patient on importance of taking on an empty stomach either first thing in the morning or at bedtime. 3. Tobacco use disorder - ICD9: 305.1, ICD10: F17.200 - Cessation encouraged. - Physiologic and physical aspects of tobacco ad diction as well as strategies for quitting were discussed. - Counseling was given focusing on the harmful effects of th is addiction especially given the patient's medical condition(s) which wi ll be worsened because of the chemicals in tobacco. 4. Abdominal distension (gaseous) - ICD9: 787.3, ICD10: R14. 0 - CT ADRENAL WO IVCON 5. Adrenal adenoma, left - ICD9: 227.0, ICD10: D35.02 - CT ADRENAL WO IVCON 6. Osteopenia, unspecified location - ICD9: 733.90, ICD10: M 85.80 - Reviewed the need for Calcium and Vitamin D suppleme nts and weight bearing exercise as tolerated - VITAMIN D 25 HYDROXY 7. Essential hypertension - ICD9: 401.9, ICD10: I10 - good control - Recommended regular aerobic exercise. - Recommend home blood pressure monitoring, to b ring results in on next visit - Goal of BP <130/80 - CBC + DIFF - BASIC METABOLIC PNL - LIPID PANEL BASIC 8. Mixed hyperlipidemia - ICD9: 272.2, ICD10: E78.2 Need to recheck her levels [address] MD Referring Provider: TRUDY ST[address] [[id number]] Allergies As of Date: 02/03/2018 Noted Allergy Reaction HCTZ (AMILORIDE-HYDROCHLOROTHIAZI*02/03/2018 14 - Other: See Comments Comments: visual NABUMETONE 09/28/2006 2 - Rash ULTRAM (TRAMADOL) 10/01/2006 2 - Rash 9 - Itching ZYBAN (BUPROPION (SMOKING DETER)) 05/01/2005 2 - Rash Date Reviewed: 02/03/2018 Reviewed by: Gisselle Davis LPN - Fully Assessed Reason for Visit: Established Patient [175] Cmt: medicare wellness visit Primary Visit Diagnosis:Medicare annual wellness visit, jacob bsequent [Z00.00] Other Visit Diagnoses:Acquired hypothyroidism [E03.9] Tobacco use disorder [F17.200] Abdominal distension (gaseous) [R14.0] Adrenal adenoma, left [D35.02] Osteopenia, unspecified location [M85.80] Essential hypertension [I10] Mixed hyperlipidemia [E78.2] Order(s):CT ADRENAL WO IVCON [[id number]] Order #: [id number] F UTURE CBC + DIFF [SQCBCDIF] Order #: [id number] FUTURE VITAMIN D 25 HYDROXY [SQVITD] Order #: [id number] FUTURE BASIC METABOLIC PNL [SQBMP] Order #: [id number] FUTURE LIPID PANEL BASIC [SQLIPB] Order #: [id number] FUTURE Prescriptions as of 02/03/2018 Sig: LOSARTAN 50 MG TABLET Take 1 tablet by mouth once d* DIAZEPAM 10 MG TABLET Take 1 tablet by mouth every * LEVOTHYROXINE 88 MCG TABLET Take one(1) tablet daily nov * CHOLECALCIFEROL (VITAMIN D3) * Take 400 Units by mouth once * ALBUTEROL SULFATE HFA 90 MCG/* Inhale 2 Puffs as instructed * * CALCIUM 600 + D 600 MG (1,500* Take one(1) tablet two(2) t im* Problem List As Of Date 02/03/2018 Noted Resolved Hypothyroidism [E03.9] INVALID FOR* More... Esophageal reflux [K21.9] INVALID FOR* More... CHOLELITHIASIS NOS [K80.20] INVALID FOR* Tobacco use disorder [F17.200] INVALID FOR* More... Disorder of bone and cartilage [M89.9, M94.9] More... Vitamin D deficiency [E55.9] INVALID FOR* More... 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 Blood per rectum [K62.5] INVALID FOR* More... Osteopenia [M85.80] INVALID FOR* More... Mixed hyperlipidemia [E78.2] INVALID FOR* Essential hypertension [I10] INVALID FOR* Medications Discontinued During This Encounter Hydrochlorothiazide 12.5 mg capsule 30 c* 12 08/29/2017 02/04/20 Route: ORAL Sig: Take 1 capsule by mouth once daily. Disc: Reason for discontinue is not on file. Encounter Status:Closed by [address] MD on 02/03/18 Vital Signs Vital Sign Description Value / Unit Date Location The following section is limited to 5 en tries per type and includes entries from the following time range: [id number] - 5. BMI (Body Mass Index) 32.31 kg/m2 04-04-2020 [facility] ([id number]) BMI (Body Mass Index) 31.55 kg/m2 12-07-2019 [facility] (32291) BMI (Body Mass Index) 31.55 kg/m2 11-16-2019 [facility] (94403) BMI (Body Mass Index) 31.37 kg/m2 10-05-2019 [facility] (61365) BMI (Body Mass Index) 31.44 kg/m2 08-21-2019 [facility] (89230) Body Temperature 96.8 [degF] 04-04-2020 [facility] (79960) Body Temperature 96.4 [degF] 11-16-2019 [facility] (96653) Body Temperature 97 [degF] 08-21-2019 [facility] (90253) Body Temperature 97.9 [degF] 08-05-2019 [facility] (53160) Body Temperature 97.7 [degF] 07-27-2019 [facility] (02586) Body weight 77.57 kg 04-04-2020 [facility] (61148) Body weight 75.75 kg 12-07-2019 [facility] (79041) Body weight 75.75 kg 11-16-2019 [facility] (17005) Body weight 75.3 kg 10-05-2019 [facility] (00328) Body weight 75.47 kg 08-21-2019 [facility] (05511) BP Diastolic 90 mm[Hg] 04-04-2020 [facility] (74962) BP Diastolic 80 mm[Hg] 11-16-2019 [facility] (33692) BP Diastolic 72 mm[Hg] 10-05-2019 [facility] (53830) BP Diastolic 82 mm[Hg] 08-21-2019 [facility] (50692) BP Diastolic 78 mm[Hg] 08-05-2019 [facility] (39507) BP Systolic 141 mm[Hg] 04-04-2020 [facility] (63137) BP Systolic 142 mm[Hg] 11-16-2019 [facility] (08327) BP Systolic 130 mm[Hg] 10-05-2019 [facility] (32045) BP Systolic 142 mm[Hg] 08-21-2019 [facility] (93998) BP Systolic 130 mm[Hg] 08-05-2019 [facility] (39174) BSA (Body Surface Area) 1.77 m2 04-04-2020 [facility] (13250) BSA (Body Surface Area) 1.75 m2 12-07-2019 [facility] (79697) BSA (Body Surface Area) 1.75 m2 11-16-2019 [facility] (08831) BSA (Body Surface Area) 1.75 m2 10-05-2019 [facility] (25982) BSA (Body Surface Area) 1.75 m2 08-21-2019 [facility] (56292) Height 154.94 cm 04-04-2020 [facility] (80644) Height 154.94 cm 12-07-2019 [facility] (95481) Height 154.94 cm 11-16-2019 [facility] (18947) Height 154.94 cm 10-05-2019 [facility] (68919) Height 154.94 cm 08-21-2019 [facility] (81804) Pulse (Heart Rate) 87 /min 04-04-2020 [facility] (74272) Pulse (Heart Rate) 92 /min 11-16-2019 [facility] (88580) Pulse (Heart Rate) 105 /min 08-21-2019 [facility] (92694) Pulse (Heart Rate) 87 /min 08-05-2019 [facility] (48521) Pulse (Heart Rate) 86 /min 07-27-2019 [facility] (95880) Pulse Oximetry 98 % 04-04-2020 [facility] (83315) Pulse Oximetry 98 % 11-16-2019 [facility] (61552) Pulse Oximetry 95 % 08-21-2019 [facility] (11327) Pulse Oximetry 97 % 08-05-2019 [facility] (97663) Pulse Oximetry 96 % 07-27-2019 [facility] (21166) Respiratory Rate 18 /min 04-04-2020 [facility] (30301) Respiratory Rate 18 /min 11-16-2019 [facility] (62452) Respiratory Rate 17 /min 08-21-2019 [facility] (50811) Respiratory Rate 16 /min 08-05-2019 [facility] (54461) Respiratory Rate 16 /min 07-27-2019 [facility] (79315) Encounters Date Type Reason Provider Location 07-30-2019 - Annotation/Addend Hypothyroidism Comprehe [facility] 07-30-2019 [facility] 03-04-2018 - Annotation/Addend Hypertensive disorder C o[facility] 03-04-2018 [facility] 03-13-2019 - Lab Order Hypertensive disorder Compre hensive 03-13-2019 Internal [facility] ne 12-07-2019 - Office outpatient [facility] 12-07-2019 visit 15 minutes [facility] 10-05-2019 - Office outpatient [facility] 10-05-2019 visit 15 minutes [facility] 08-21-2019 - Office outpatient [facility] 08-21-2019 visit 15 minutes [facility] 07-27-2019 - Office outpatient [facility] 07-27-2019 visit 15 minutes [facility] 03-23-2019 - Office outpatient [facility] 03-23-2019 visit 15 minutes [facility] 10-29-2018 - Office outpatient [facility] 10-29-2018 visit 15 minutes [facility] 10-10-2018 - Office outpatient Chronic obstructive Com prehensive 10-10-2018 visit 15 minutes pulmonary disease and In ternal Medicine bronchiectasis 10-03-2018 - Office outpatient [facility] 10-03-2018 visit 15 minutes [facility] 04-04-2020 - Office outpatient [facility] 04-04-2020 visit 25 minutes [facility] 08-05-2019 - Office outpatient [facility] 08-05-2019 visit 25 minutes [facility] 04-14-2018 - Office outpatient [facility] 04-14-2018 visit 25 minutes [facility] 03-14-2018 - Office outpatient [facility] 03-14-2018 visit 25 minutes [facility] 02-26-2018 - Office outpatient [facility] 02-26-2018 visit 25 minutes [facility] 02-25-2018 - Office outpatient BMI 31.0-31.9,adult Com prehensive 02-25-2018 visit 25 minutes Internal [facility] 02-05-2019 - Office outpatient Pneumococcal [facility] 02-05-2019 visit 5 minutes vaccination given Interna l Medicine 10-29-2018 Patient encounter Shaneka Anderson Compreh ensive procedure Shaneka [facility] ([id number]) Shaneka Anderson 11-16-2019 - Periodic Comprehensive 11-16-2019 preventive med Internal Medi cine est patient 65yrs& older 11-11-2018 - Periodic Comprehensive 11-13-2018 preventive med Internal Medi cine est patient 65yrs& older 03-30-2020 - Phone Encounter Pulmonary HTN Comprehensi ve 03-30-2020 Internal Medici ne 09-25-2018 - Phone Encounter Screening mammogram, Comp rehensive 09-25-2018 encounter for Internal Medic ine 06-02-2018 - Phone Encounter Unspecified Diagnosis Com prehensive 06-02-2018 Internal Medici ne Procedures Procedure Name Date Provider Location Dexa Bone Density Study 12-03-2019 - Shaneka Anderson Comprehcrystal nsive Internal 12-03-2019 Medicine ([id number]) SCREEN MAMM (CAD) W/ODALIS 12-03-2019 - Shaneka Anderson Compreh ensive Internal BILAT 12-03-2019 Medicine (79006) Pulmonary Visit Report 05-12-2019 - [facility] 05-12-2019 Medicine ([id number]) Chest without Contrast 05-09-2019 - Jas Brown Comprehen [facility] Internal 05-09-2019 Medicine (35454) Pulmonary Function Test 05-07-2019 - Comprehe [facility] 05-07-2019 Medicine (33770) SCREENING MAMM (CAD), BILAT 10-02-2018 - Shaneka Justin Comp rehensive Internal 10-03-2018 Medicine (04533) Pulmonary Visit Report 05-01-2018 - Comprehen [facility] Internal 05-01-2018 Medicine ([id number]) Pulmonary Function Report 04-03-2018 - Compre hensive Internal Comp 04-03-2018 Medicine ([id number]) Low Dose CT Lung Screening 04-03-2018 - Shaneka Anderson Compr ehensive Internal 04-03-2018 Medicine ([id number]) Renal Artery Duplex 03-17-2018 - Carmen Ciesa Comprehensiv e Internal 03-17-2018 Medicine ([id number]) Stress Report 03-17-2018 - [facility] 03-17-2018 Medicine (42576) Carotid Duplex Ultrasound 03-12-2018 - Shaneka Anderson Compre [facility] Internal 03-12-2018 Medicine (70107) Echocardiogram Complete 03-07-2018 - Shaneka Justin Comprehe nsive Internal 03-07-2018 Medicine (17381) Kidney and Bladder 03-05-2018 - Carmen Ciesa [facility] 03-05-2018 Medicine (92842) Biopsy of breast Zoya Messenger [facility] (97816) Comment: 1971 Biopsy of breast Celi Gravius [facility] (82190) Comment: 1971 Biopsy of breast Ruth L Long [facility] (46842) Comment: 1971 Biopsy of breast Celi Gravius [facility] (15557) Comment: 1971 Biopsy of breast Zoya Messenger [facility] (23252) Comment: 1971 Biopsy of breast Ruth L Long [facility] (01362) Comment: 1971 Cataract Surgery Zoya Messenger [facility] (03937) Comment: 2014 Cataract Surgery Ruth L Long [facility] (36820) Comment: 2014 Cataract Surgery Zoya Messenger [facility] (51395) Comment: 2014 Cataract Surgery Celi Gravius [facility] (21006) Comment: 2014 Cataract Surgery Celi Gravius [facility] (60879) Comment: 2014 Cataract Surgery Ruth L Long [facility] (99190) Comment: 2014 Ligation of fallopian tube Ruth L Long [facility] (25931) Comment: 1979 Ligation of fallopian tube Zoya Messenger [facility] (48662) Comment: 1979 Ligation of fallopian tube Zoya Messenger [facility] (18483) Comment: 1979 Ligation of fallopian tube Ruth L Long [facility] (04283) Comment: 1979 Ligation of fallopian tube Celi Gravius [facility] (05099) Comment: 1979 Ligation of fallopian tube Celi Gravius [facility] (18990) Comment: 1979 Radiation Ruth L Long [facility] (44824) Comment: 1990 Radiation Ruth L Long [facility] (76672) Comment: 1990 Radiation Zoya Messenger [facility] (88662) Comment: 1990 Radiation Celi Gravius [facility] (31465) Comment: 1990 Radiation Zoya Messenger [facility] (95101) Comment: 1990 Radiation Celi Gravius [facility] (79807) Comment: 1990 Tonsillectomy Zoya Messenger [facility] (76710) Comment: 1947 Tonsillectomy Ruth L Long [facility] (38539) Comment: 1947 Tonsillectomy Ruth L Long [facility] (57982) Comment: 1947 Tonsillectomy Celi Gravius [facility] (61916) Comment: 1947 Tonsillectomy Celi Gravius [facility] (41667) Comment: 1947 Tonsillectomy Zoya Messenger [facility] (12430) Comment: 1947 Plan of Treatment Plan Description Date Location Procedure Education Eprescribed prescriptions 04-04-2020 [facility] Internal ([id number]) Medicine (81362) Provider Instructions for no information 04-04-[address] [facility] Internal Treatment Medicine (78249) CALCIFEDIOL (39766) CALCIFEDIOL (70884) 04-04-2020 [facility] (13368) LIPID PANEL (51054) LIPID PANEL (06454) [facility] (49[facility] TSH (66666) TSH (72599) 04-04-2020 [facility] (22248) URINALYSIS, W/ MICRO URINALYSIS, W/ MICRO 04-04-[address] [facility] Internal (64830) (92424) Medicine (02498) MICROALBUMIN: CREATININE MICROALBUMIN: CREATININE 04-04-2020 [facility] RATIO (09782) AND (73327) RATIO (19920) AND (75605) Medicine (13168) CBC W/AUTO DIFF WBC CBC W/AUTO DIFF WBC 04-04-2020 [facility] Internal (89241) (36575) Medicine (00229) METABOLIC PANEL, METABOLIC PANEL, 04-04-2020 [facility] COMPREHENSIVE (12330) COMPREHENSIVE (51508) Medi cine (33432) LIPID PANEL (04430) LIPID PANEL (84956) 03-30-2020 Compre[facility] Internal Medicine (10512) CBC & PLATELETS (AUTO) CBC & PLATELETS (AUTO) 03-30-2020 [facility] (89489[facility] (64254) Medicine (08656) METABOLIC PANEL, METABOLIC PANEL, 03-30-2020 [facility] COMPREHENSIVE (85844) COMPREHENSIVE (07046) Medi cine (79475) T4, FREE (THYROXINE) T4, FREE (THYROXINE) 03-30-[address] [facility] Internal (32228) (31792) Medicine (90554) FREE TRIIDOTHYRONINE (T3) FREE TRIIDOTHYRONINE (T3) 03-30-2020 [facility] (40478) (83605) Medicine (41056) TSH (THYROID STIMULATING TSH (THYROID STIMULATING 03-30-2020 [facility] Internal HORMONE) (69743) HORMONE) (48757) Medicine (4469 1) Procedure Education Eprescribed prescriptions 12-07-2019 [facility] Internal ([id number]) Medicine (36264) Provider Instructions for no information 12-07-2019 [facility] Internal Treatment Medicine (60487) Procedure Education Eprescribed prescriptions 11-16-2019 [facility] Internal (G8553) Medicine (92265) Provider Instructions for no information 11-16-2019 [facility] Internal Treatment Medicine (12077) Procedure Education Eprescribed prescriptions 10-05-2019 [facility] Internal ([id number]) Medicine ([id number]) Provider Instructions for no information 10-05-[address] [facility] Internal Treatment Medicine ([id number]) TSH (THYROID STIMULATING TSH (THYROID STIMULATING 09-21-2019 [facility] HORMONE) (70033) HORMONE) (16986) Medicine (4469 1) URINALYSIS, W/ MICRO URINALYSIS, W/ MICRO 08-26-2019 [facility] (87809) (49698) Medicine (48075) Procedure Education Eprescribed prescriptions 08-21-2019 [facility] (G8553) Medicine (73915) Provider Instructions for Reviewed Lab 08-21-[address] [facility] Internal Treatment Medicine (17661) Procedure Education Eprescribed prescriptions 08-05-2019 [facility] ([id number][facility] Medicine (28277) Provider Instructions for no information 08-05-[address] [facility] Internal Treatment Medicine ([id number]) URINALYSIS, W/ MICRO URINALYSIS, W/ MICRO 08-05-[address] [facility] Internal ([id number]) (82210) Medicine (72758) MICROALBUMIN: CREATININE MICROALBUMIN: CREATININE 08-05-2019 [facility] RATIO (99153) AND (14875) RATIO (63161) AND (06100) Medicine (71241) Procedure Education Eprescribed prescriptions 07-27-2019 [facility] ([id number]) Medicine (34818) Provider Instructions for no information 07-27-[address] [facility] Internal Treatment Medicine (67466) Procedure Education Eprescribed prescriptions 03-23-2019 [facility] ([id number]) Medicine (15869) Provider Instructions for no information 03-23-[address] [facility] Internal Treatment Medicine ([id number]) MICROALBUMIN: CREATININE MICROALBUMIN: CREATININE 03-13-2019 [facility] RATIO (78248) AND (18243) RATIO (85962) AND (17061) Medicine (82413) METABOLIC PANEL, METABOLIC PANEL, 03-13-2019 [facility] COMPREHENSIVE (01379) COMPREHENSIVE (25535) Medi cine (25676) CBC, PLATELETS & MANUAL CBC, PLATELETS & MANUAL 03-13-2019 [facility] DIFF (84868) DIFF (70196) Medicine (19431) TSH (THYROID STIMULATING TSH (THYROID STIMULATING 03-13-2019 [facility] HORMONE) (52205) HORMONE) (93961) Medicine (4469 1) NMR Profile (71986) NMR Profile (50732) 03-13-2019 [facility] Medicine (89487) Provider Instructions for no information 11-13-2018 [facility] Internal Treatment Medicine (49228) Procedure Education Eprescribed prescriptions 11-11-2018 [facility] (G8553) Medicine (75512) Procedure Education Eprescribed prescriptions 10-29-2018 [facility] (G8553) Medicine (33987) Provider Instructions for no information 10-29-2018 [facility] Internal Treatment Medicine (56387) Procedure Education Eprescribed prescriptions 10-10-2018 [facility] (G8553) Medicine (25175) Procedure Education Eprescribed prescriptions 10-03-2018 [facility] (G8553) Medicine (69460) Provider Instructions for Follow up in 1 week 10-03-2018 [facility] Treatment Medicine (11120) Sputum Culture (01875) Sputum Culture (80427) 10-03-2018 [facility] Medicine (72193) Provider Instructions for Reviewed Diagnostic Tests 04-14-2018 [facility] Treatment Medicine (90300) Procedure Education Eprescribed prescriptions 03-14-2018 [facility] (G8553) Medicine (66550) Provider Instructions for no information 03-14-2018 [facility] Internal Treatment Medicine (65116) Procedure Education Eprescribed prescriptions 02-26-2018 [facility] Internal (G8553) Medicine (63926) Provider Instructions for no information 02-26-2018 [facility] Internal Treatment Medicine (40937) Provider Instructions for no information 02-25-2018 [facility] Internal Treatment Medicine (54859) no information [facility] In [facility]al Medicine (49454) no information [facility] In [facility]al Medicine (18338) no information [facility] In [facility]al Medicine (47312) no information [facility] (43667) no information [facility] (55093) no information [facility] (44749) no information [facility] (24605) no information [facility] (36864) no information [facility] (25079) no information [facility] (68085) no information [facility] (93172) no information [facility] (41939) no information [facility] (81965) no information [facility] (15173) no information [facility] (66008) no information [facility] (47171) Payers Payer Name Policy Number Location [employer] PPO [id number] [facility] ([id number]) [facility] (33283) [id number] [facility] (22562) The following information is from the original human readable contentNo Payer Records Found Social History Type Social History Description Date Locat ion Caffeine Use [facility] Medicine (01679) Comment: 1 pk per 2 days Exercise History: Exercise History: Comprehensiv e Internal Medicine (58481) Living Situation: Living Situation: Comprehensiv e Internal Medicine (27602) The following information is from the original human readable contentNo Social History Records FoundNo Social History Records FoundNo Social History Records Found Functional Status Status Assessment Result Location LP-IR Score LP-IR Score 43 [facility] (00714) Comment: INSULIN RESISTANCE MARKER <- -Insulin Sensitive Insulin Resistant--> Percentile in Reference Popu lationInsulin Resistance ScoreLP-IR Score Low 25th 50th 75th High <27 27 4 5 63 >63LP-IR Score is inaccurate if patient is non-fasting. .The LP-IR scor e is a laboratory developed index that has beenassociated with insulin resistance and diabetes risk and should beused as one component of a physic latisha's clinical assessment. TheLP-IR score listed above has not been cleared b y the [place] Food andDrug Administration. PATIENT WAS FASTINGPERFORMED BY: BN [facility] [id number] [facility] [id number] BY: CB [facility] [id number] [facility] [id number] LP-IR Score LP-IR Score 34 [facility] (38769) Comment: INSULIN RESISTANCE MARKER <- -Insulin Sensitive Insulin Resistant--> Percentile in Reference Popu lationInsulin Resistance ScoreLP-IR Score Low 25th 50th 75th High <27 27 4 5 63 >63LP-IR Score is inaccurate if patient is non-fasting. .The LP-IR scor e is a laboratory developed index that has beenassociated with insulin resistance and diabetes risk and should beused as one component of a physic latisha's clinical assessment. Test(s) 256614-KTB-I; 736510 -LDL-C; 739261-QVV-J; 807441-Lzmawugsjgnqi; 374405-Zohhqwerkku, Total; 8 95668-YNU-T (Total);648073-Zeqfp LDL-P; 092091-GYW Size; 899575-WF-H R Scorewas developed and its performance characteristics determinedby [facility]. It has not been cleared or approved by the Foodand Drug Administrat [facility].PATIENT WAS FASTINGPERFORMED BY: BN [facility] [id number] [facility] [id number] BY: CB [facility] [id number] [facility] [id number] Family History Unknown Family Member Name Dates Details Alcohol Abuse Comments: Daughter. Status: Active Thyroid problems Comments: Mother. Status: Active Unknown Family Member Name Dates Details Alcohol Abuse Comments: Daughter. Status: Active Thyroid problems Comments: Mother. Status: Active Unknown Family Member Name Dates Details Alcohol Abuse Comments: Daughter. Status: Active Thyroid problems Comments: Mother. Status: Active Unknown Family Member Name Dates Details Alcohol Abuse Comments: Daughter. Status: Active Thyroid problems Comments: Mother. Status: Active Unknown Family Member Name Dates Details Alcohol Abuse Comments: Daughter. Status: Active Thyroid problems Comments: Mother. Status: Active Unknown Family Member Name Dates Details Alcohol Abuse Comments: Daughter. Status: Active Thyroid problems Comments: Mother. Status: Active Unknown Family Member Name Dates Details Alcohol Abuse Comments: Daughter. Status: Active Thyroid problems Comments: Mother. Status: Active Unknown Family Member Name Dates Details Alcohol Abuse Comments: Daughter. Status: Active Thyroid problems Comments: Mother. Status: Active Unknown Family Member Name Dates Details Alcohol Abuse Comments: Daughter. Status: Active Thyroid problems Comments: Mother. Status: Active Unknown Family Member Name Dates Details Alcohol Abuse Comments: Daughter. Status: Active Thyroid problems Comments: Mother. Status: Active Unknown Family Member Name Dates Details Alcohol Abuse Comments: Daughter. Status: Active Thyroid problems Comments: Mother. Status: Active Instructions Name Dates Details obesity counseling Start: 13-Nov-2018 Instruction Type: P rovider Instructions for Treatment Indication: Pulmonary HTN cardiovascular counseling Start: 13-Nov-2018 Instruction T ype: Provider Instructions for Treatment Indication: Hypertension How to access health information online Start: 11-Nov-2018 Instruction Type: Patient Education Indication: BMI 31.0-31.9,adult How to access health information online - Detail Start: Oct-2018 Instruction Type: Patient Education Indication: BMI 31.0-31.9,adult Patient Instructions Start: 11-Nov-2018 Instruction Type: Provider Instructions for Treatment Indication: BMI 31.0-31.9,adult How to access health information online Start: 29-Oct-2018 Instruction Type: Patient Education Indication: Smoker How to access health information online - Detail Start: Instruction Type: Patient Education Indication: Smoker Patient Instructions Start: 29-Oct-2018 Instruction Type: Provider Instructions for Treatment Indication: Smoker How to access health information online Start: 10-Oct-2018 Instruction Type: Patient Education Indication: Smoker How to access health information online - Detail Start: Sep-2018 Instruction Type: Patient Education Indication: Smoker Patient Instructions Start: 10-Oct-2018 Instruction Type: Provider Instructions for Treatment Indication: Smoker How to access health information online Start: 03-Oct-2018 Instruction Type: Patient Education Indication: Smoker How to access health information online - Detail Start: Instruction Type: Patient Education Indication: Smoker Patient Instructions Start: 03-Oct-2018 Instruction Type: Provider Instructions for Treatment Indication: Smoker How to access health information online Start: 14-Apr-2018 Instruction Type: Patient Education Indication: Smoker How to access health information online - Detail Start: Mar-2018 Instruction Type: Patient Education Indication: Smoker Patient Instructions Start: 14-Apr-2018 Instruction Type: Provider Instructions for Treatment Indication: Smoker How to access health information online Start: 14-Mar-2018 Instruction Type: Patient Education Indication: Chest pain, atypical How to access health information online - Detail Start: Mar-2018 Instruction Type: Patient Education Indication: Chest pain, atypical Patient Instructions Start: 14-Mar-2018 Instruction Type: Provider Instructions for Treatment Indication: Chest pain, atypical How to access health information online Start: 26-Feb-2018 Instruction Type: Patient Education Indication: Smoker How to access health information online - Detail Start: Jan-2018 Instruction Type: Patient Education Indication: Smoker Patient Instructions Start: 26-Feb-2018 Instruction Type: Provider Instructions for Treatment Indication: Smoker How to access health information online Start: 25-Feb-2018 Instruction Type: Patient Education Indication: Smoker How to access health information online - Detail Start: Jan-2018 Instruction Type: Patient Education Indication: Smoker Patient Instructions Start: 25-Feb-2018 Instruction Type: Provider Instructions for Treatment Indication: Smoker Name Dates Details Smoker : How to access health information online Indication: Smoker Smoker : How to access health information online - Detail Indication: Smoker Smoker : Patient Instructions Indication: Smoker Chest pain, atypical : How to access health information onli ne Indication: Chest pain, atypical Chest pain, atypical : How to access health information onli ne - Detail Indication: Chest pain, atypical Chest pain, atypical : Patient Instructions Indication: Chest pain, atypical Name Dates Details Smoker : How to access health information online Indication: Smoker Smoker : How to access health information online - Detail Indication: Smoker Smoker : Patient Instructions Indication: Smoker Chest pain, atypical : How to access health information onli ne Indication: Chest pain, atypical Chest pain, atypical : How to access health information onli ne - Detail Indication: Chest pain, atypical Chest pain, atypical : Patient Instructions Indication: Chest pain, atypical Name Dates Details How to access health information online Start: 29-Oct-2018 Instruction Type: Patient Education Indication: Smoker How to access health information online - Detail Start: Instruction Type: Patient Education Indication: Smoker Patient Instructions Start: 29-Oct-2018 Instruction Type: Provider Instructions for Treatment Indication: Smoker How to access health information online Start: 10-Oct-2018 Instruction Type: Patient Education Indication: Smoker How to access health information online - Detail Start: Sep-2018 Instruction Type: Patient Education Indication: Smoker Patient Instructions Start: 10-Oct-2018 Instruction Type: Provider Instructions for Treatment Indication: Smoker How to access health information online Start: 03-Oct-2018 Instruction Type: Patient Education Indication: Smoker How to access health information online - Detail Start: Instruction Type: Patient Education Indication: Smoker Patient Instructions Start: 03-Oct-2018 Instruction Type: Provider Instructions for Treatment Indication: Smoker How to access health information online Start: 14-Apr-2018 Instruction Type: Patient Education Indication: Smoker How to access health information online - Detail Start: Mar-2018 Instruction Type: Patient Education Indication: Smoker Patient Instructions Start: 14-Apr-2018 Instruction Type: Provider Instructions for Treatment Indication: Smoker How to access health information online Start: 14-Mar-2018 Instruction Type: Patient Education Indication: Chest pain, atypical How to access health information online - Detail Start: Mar-2018 Instruction Type: Patient Education Indication: Chest pain, atypical Patient Instructions Start: 14-Mar-2018 Instruction Type: Provider Instructions for Treatment Indication: Chest pain, atypical How to access health information online Start: 26-Feb-2018 Instruction Type: Patient Education Indication: Smoker How to access health information online - Detail Start: Jan-2018 Instruction Type: Patient Education Indication: Smoker Patient Instructions Start: 26-Feb-2018 Instruction Type: Provider Instructions for Treatment Indication: Smoker How to access health information online Start: 25-Feb-2018 Instruction Type: Patient Education Indication: Smoker How to access health information online - Detail Start: Jan-2018 Instruction Type: Patient Education Indication: Smoker Patient Instructions Start: 25-Feb-2018 Instruction Type: Provider Instructions for Treatment Indication: Smoker Name Dates Details obesity counseling Start: 13-Nov-2018 Instruction Type: Laila aguilera Instructions for Treatment Indication: Pulmonary HTN cardiovascular counseling Start: 13-Nov-2018 Instruction T ype: Provider Instructions for Treatment Indication: Hypertension How to access health information online Start: 11-Nov-2018 Instruction Type: Patient Education Indication: BMI 31.0-31.9,adult How to access health information online - Detail Start: Oct-2018 Instruction Type: Patient Education Indication: BMI 31.0-31.9,adult Patient Instructions Start: 11-Nov-2018 Instruction Type: Provider Instructions for Treatment Indication: BMI 31.0-31.9,adult How to access health information online Start: 29-Oct-2018 Instruction Type: Patient Education Indication: Smoker How to access health information online - Detail Start: Instruction Type: Patient Education Indication: Smoker Patient Instructions Start: 29-Oct-2018 Instruction Type: Provider Instructions for Treatment Indication: Smoker How to access health information online Start: 10-Oct-2018 Instruction Type: Patient Education Indication: Smoker How to access health information online - Detail Start: Sep-2018 Instruction Type: Patient Education Indication: Smoker Patient Instructions Start: 10-Oct-2018 Instruction Type: Provider Instructions for Treatment Indication: Smoker How to access health information online Start: 03-Oct-2018 Instruction Type: Patient Education Indication: Smoker How to access health information online - Detail Start: Instruction Type: Patient Education Indication: Smoker Patient Instructions Start: 03-Oct-2018 Instruction Type: Provider Instructions for Treatment Indication: Smoker How to access health information online Start: 14-Apr-2018 Instruction Type: Patient Education Indication: Smoker How to access health information online - Detail Start: Mar-2018 Instruction Type: Patient Education Indication: Smoker Patient Instructions Start: 14-Apr-2018 Instruction Type: Provider Instructions for Treatment Indication: Smoker How to access health information online Start: 14-Mar-2018 Instruction Type: Patient Education Indication: Chest pain, atypical How to access health information online - Detail Start: Mar-2018 Instruction Type: Patient Education Indication: Chest pain, atypical Patient Instructions Start: 14-Mar-2018 Instruction Type: Provider Instructions for Treatment Indication: Chest pain, atypical How to access health information online Start: 26-Feb-2018 Instruction Type: Patient Education Indication: Smoker How to access health information online - Detail Start: Jan-2018 Instruction Type: Patient Education Indication: Smoker Patient Instructions Start: 26-Feb-2018 Instruction Type: Provider Instructions for Treatment Indication: Smoker How to access health information online Start: 25-Feb-2018 Instruction Type: Patient Education Indication: Smoker How to access health information online - Detail Start: Jan-2018 Instruction Type: Patient Education Indication: Smoker Patient Instructions Start: 25-Feb-2018 Instruction Type: Provider Instructions for Treatment Indication: Smoker Name Dates Details Smoker : How to access health information online Indication: Smoker Smoker : How to access health information online - Detail Indication: Smoker Smoker : Patient Instructions Indication: Smoker Chest pain, atypical : How to access health information onli ne Indication: Chest pain, atypical Chest pain, atypical : How to access health information onli ne - Detail Indication: Chest pain, atypical Chest pain, atypical : Patient Instructions Indication: Chest pain, atypical Name Dates Details obesity counseling Start: 13-Nov-2018 Instruction Type: Laila aguilera Instructions for Treatment Indication: Pulmonary HTN cardiovascular counseling Start: 13-Nov-2018 Instruction T ype: Provider Instructions for Treatment Indication: Hypertension How to access health information online Start: 11-Nov-2018 Instruction Type: Patient Education Indication: BMI 31.0-31.9,adult How to access health information online - Detail Start: Oct-2018 Instruction Type: Patient Education Indication: BMI 31.0-31.9,adult Patient Instructions Start: 11-Nov-2018 Instruction Type: Provider Instructions for Treatment Indication: BMI 31.0-31.9,adult How to access health information online Start: 29-Oct-2018 Instruction Type: Patient Education Indication: Smoker How to access health information online - Detail Start: Instruction Type: Patient Education Indication: Smoker Patient Instructions Start: 29-Oct-2018 Instruction Type: Provider Instructions for Treatment Indication: Smoker How to access health information online Start: 10-Oct-2018 Instruction Type: Patient Education Indication: Smoker How to access health information online - Detail Start: Sep-2018 Instruction Type: Patient Education Indication: Smoker Patient Instructions Start: 10-Oct-2018 Instruction Type: Provider Instructions for Treatment Indication: Smoker How to access health information online Start: 03-Oct-2018 Instruction Type: Patient Education Indication: Smoker How to access health information online - Detail Start: Instruction Type: Patient Education Indication: Smoker Patient Instructions Start: 03-Oct-2018 Instruction Type: Provider Instructions for Treatment Indication: Smoker How to access health information online Start: 14-Apr-2018 Instruction Type: Patient Education Indication: Smoker How to access health information online - Detail Start: Mar-2018 Instruction Type: Patient Education Indication: Smoker Patient Instructions Start: 14-Apr-2018 Instruction Type: Provider Instructions for Treatment Indication: Smoker How to access health information online Start: 14-Mar-2018 Instruction Type: Patient Education Indication: Chest pain, atypical How to access health information online - Detail Start: Mar-2018 Instruction Type: Patient Education Indication: Chest pain, atypical Patient Instructions Start: 14-Mar-2018 Instruction Type: Provider Instructions for Treatment Indication: Chest pain, atypical How to access health information online Start: 26-Feb-2018 Instruction Type: Patient Education Indication: Smoker How to access health information online - Detail Start: Jan-2018 Instruction Type: Patient Education Indication: Smoker Patient Instructions Start: 26-Feb-2018 Instruction Type: Provider Instructions for Treatment Indication: Smoker How to access health information online Start: 25-Feb-2018 Instruction Type: Patient Education Indication: Smoker How to access health information online - Detail Start: Jan-2018 Instruction Type: Patient Education Indication: Smoker Patient Instructions Start: 25-Feb-2018 Instruction Type: Provider Instructions for Treatment Indication: Smoker Name Dates Details How to access health information online - Detail Start: Mar-2019 Instruction Type: Patient Education Indication: Smoker Patient Instructions Start: 23-Mar-2019 Instruction Type: Provider Instructions for Treatment Indication: Smoker obesity counseling Start: 13-Nov-2018 Instruction Type: Laila aguilera Instructions for Treatment Indication: Pulmonary HTN cardiovascular counseling Start: 13-Nov-2018 Instruction T ype: Provider Instructions for Treatment Indication: Hypertension How to access health information online Start: 11-Nov-2018 Instruction Type: Patient Education Indication: BMI 31.0-31.9,adult How to access health information online - Detail Start: Oct-2018 Instruction Type: Patient Education Indication: BMI 31.0-31.9,adult Patient Instructions Start: 11-Nov-2018 Instruction Type: Provider Instructions for Treatment Indication: BMI 31.0-31.9,adult How to access health information online Start: 29-Oct-2018 Instruction Type: Patient Education Indication: Smoker How to access health information online - Detail Start: Instruction Type: Patient Education Indication: Smoker Patient Instructions Start: 29-Oct-2018 Instruction Type: Provider Instructions for Treatment Indication: Smoker How to access health information online Start: 10-Oct-2018 Instruction Type: Patient Education Indication: Smoker How to access health information online - Detail Start: Sep-2018 Instruction Type: Patient Education Indication: Smoker Patient Instructions Start: 10-Oct-2018 Instruction Type: Provider Instructions for Treatment Indication: Smoker How to access health information online Start: 03-Oct-2018 Instruction Type: Patient Education Indication: Smoker How to access health information online - Detail Start: Instruction Type: Patient Education Indication: Smoker Patient Instructions Start: 03-Oct-2018 Instruction Type: Provider Instructions for Treatment Indication: Smoker How to access health information online Start: 14-Apr-2018 Instruction Type: Patient Education Indication: Smoker How to access health information online - Detail Start: Mar-2018 Instruction Type: Patient Education Indication: Smoker Patient Instructions Start: 14-Apr-2018 Instruction Type: Provider Instructions for Treatment Indication: Smoker How to access health information online Start: 14-Mar-2018 Instruction Type: Patient Education Indication: Chest pain, atypical How to access health information online - Detail Start: Mar-2018 Instruction Type: Patient Education Indication: Chest pain, atypical Patient Instructions Start: 14-Mar-2018 Instruction Type: Provider Instructions for Treatment Indication: Chest pain, atypical How to access health information online Start: 26-Feb-2018 Instruction Type: Patient Education Indication: Smoker How to access health information online - Detail Start: Jan-2018 Instruction Type: Patient Education Indication: Smoker Patient Instructions Start: 26-Feb-2018 Instruction Type: Provider Instructions for Treatment Indication: Smoker How to access health information online Start: 25-Feb-2018 Instruction Type: Patient Education Indication: Smoker How to access health information online - Detail Start: Jan-2018 Instruction Type: Patient Education Indication: Smoker Patient Instructions Start: 25-Feb-2018 Instruction Type: Provider Instructions for Treatment Indication: Smoker Name Dates Details How to access health information online Start: 07-Dec-2019 Instruction Type: Patient Education Indication: Smoker How to access health information online - Detail Start: Instruction Type: Patient Education Indication: Smoker Patient Instructions Start: 07-Dec-2019 Instruction Type: Provider Instructions for Treatment Indication: Smoker obesity counseling Start: 16-Nov-2019 Instruction Type: Laila aguilera Instructions for Treatment Indication: Hypertension How to access health information online - Detail Start: Oct-2019 Instruction Type: Patient Education Indication: BMI 31.0-31.9,adult How to access health information online Start: 16-Nov-2019 Instruction Type: Patient Education Indication: BMI 31.0-31.9,adult Patient Instructions Start: 16-Nov-2019 Instruction Type: Provider Instructions for Treatment Indication: BMI 31.0-31.9,adult How to access health information online Start: 05-Oct-2019 Instruction Type: Patient Education Indication: BMI 31.0-31.9,adult How to access health information online - Detail Start: Instruction Type: Patient Education Indication: BMI 31.0-31.9,adult Patient Instructions Start: 05-Oct-2019 Instruction Type: Provider Instructions for Treatment Indication: BMI 31.0-31.9,adult How to access health information online Start: 21-Aug-2019 Instruction Type: Patient Education Indication: UTI symptoms How to access health information online - Detail Start: Aug-2019 Instruction Type: Patient Education Indication: UTI symptoms Patient Instructions Start: 21-Aug-2019 Instruction Type: Provider Instructions for Treatment Indication: Smoker How to access health information online Start: 05-Aug-2019 Instruction Type: Patient Education Indication: BMI 31.0-31.9,adult How to access health information online - Detail Start: Instruction Type: Patient Education Indication: BMI 31.0-31.9,adult Patient Instructions Start: 05-Aug-2019 Instruction Type: Provider Instructions for Treatment Indication: BMI 31.0-31.9,adult How to access health information online Start: 27-Jul-2019 Instruction Type: Patient Education Indication: BMI 31.0-31.9,adult How to access health information online - Detail Start: Jul-2019 Instruction Type: Patient Education Indication: BMI 31.0-31.9,adult Patient Instructions Start: 27-Jul-2019 Instruction Type: Provider Instructions for Treatment Indication: Hypertension How to access health information online - Detail Start: Mar-2019 Instruction Type: Patient Education Indication: Smoker Patient Instructions Start: 23-Mar-2019 Instruction Type: Provider Instructions for Treatment Indication: Smoker obesity counseling Start: 13-Nov-2018 Instruction Type: Laila aguilera Instructions for Treatment Indication: Pulmonary HTN cardiovascular counseling Start: 13-Nov-2018 Instruction T ype: Provider Instructions for Treatment Indication: Hypertension How to access health information online Start: 11-Nov-2018 Instruction Type: Patient Education Indication: BMI 31.0-31.9,adult How to access health information online - Detail Start: Oct-2018 Instruction Type: Patient Education Indication: BMI 31.0-31.9,adult Patient Instructions Start: 11-Nov-2018 Instruction Type: Provider Instructions for Treatment Indication: BMI 31.0-31.9,adult How to access health information online Start: 29-Oct-2018 Instruction Type: Patient Education Indication: Smoker How to access health information online - Detail Start: Instruction Type: Patient Education Indication: Smoker Patient Instructions Start: 29-Oct-2018 Instruction Type: Provider Instructions for Treatment Indication: Smoker How to access health information online Start: 10-Oct-2018 Instruction Type: Patient Education Indication: Smoker How to access health information online - Detail Start: Sep-2018 Instruction Type: Patient Education Indication: Smoker Patient Instructions Start: 10-Oct-2018 Instruction Type: Provider Instructions for Treatment Indication: Smoker How to access health information online Start: 03-Oct-2018 Instruction Type: Patient Education Indication: Smoker How to access health information online - Detail Start: Instruction Type: Patient Education Indication: Smoker Patient Instructions Start: 03-Oct-2018 Instruction Type: Provider Instructions for Treatment Indication: Smoker How to access health information online Start: 14-Apr-2018 Instruction Type: Patient Education Indication: Smoker How to access health information online - Detail Start: Mar-2018 Instruction Type: Patient Education Indication: Smoker Patient Instructions Start: 14-Apr-2018 Instruction Type: Provider Instructions for Treatment Indication: Smoker How to access health information online Start: 14-Mar-2018 Instruction Type: Patient Education Indication: Chest pain, atypical How to access health information online - Detail Start: Mar-2018 Instruction Type: Patient Education Indication: Chest pain, atypical Patient Instructions Start: 14-Mar-2018 Instruction Type: Provider Instructions for Treatment Indication: Chest pain, atypical How to access health information online Start: 26-Feb-2018 Instruction Type: Patient Education Indication: Smoker How to access health information online - Detail Start: Jan-2018 Instruction Type: Patient Education Indication: Smoker Patient Instructions Start: 26-Feb-2018 Instruction Type: Provider Instructions for Treatment Indication: Smoker How to access health information online Start: 25-Feb-2018 Instruction Type: Patient Education Indication: Smoker How to access health information online - Detail Start: Jan-2018 Instruction Type: Patient Education Indication: Smoker Patient Instructions Start: 25-Feb-2018 Instruction Type: Provider Instructions for Treatment Indication: Smoker Name Dates Details How to access health information online Start: 07-Dec-2019 Instruction Type: Patient Education Indication: Smoker How to access health information online - Detail Start: Instruction Type: Patient Education Indication: Smoker Patient Instructions Start: 07-Dec-2019 Instruction Type: Provider Instructions for Treatment Indication: Smoker obesity counseling Start: 16-Nov-2019 Instruction Type: Laila aguilera Instructions for Treatment Indication: Hypertension How to access health information online - Detail Start: Oct-2019 Instruction Type: Patient Education Indication: BMI 31.0-31.9,adult How to access health information online Start: 16-Nov-2019 Instruction Type: Patient Education Indication: BMI 31.0-31.9,adult Patient Instructions Start: 16-Nov-2019 Instruction Type: Provider Instructions for Treatment Indication: BMI 31.0-31.9,adult How to access health information online Start: 05-Oct-2019 Instruction Type: Patient Education Indication: BMI 31.0-31.9,adult How to access health information online - Detail Start: Instruction Type: Patient Education Indication: BMI 31.0-31.9,adult Patient Instructions Start: 05-Oct-2019 Instruction Type: Provider Instructions for Treatment Indication: BMI 31.0-31.9,adult How to access health information online Start: 21-Aug-2019 Instruction Type: Patient Education Indication: UTI symptoms How to access health information online - Detail Start: Aug-2019 Instruction Type: Patient Education Indication: UTI symptoms Patient Instructions Start: 21-Aug-2019 Instruction Type: Provider Instructions for Treatment Indication: Smoker How to access health information online Start: 05-Aug-2019 Instruction Type: Patient Education Indication: BMI 31.0-31.9,adult How to access health information online - Detail Start: Instruction Type: Patient Education Indication: BMI 31.0-31.9,adult Patient Instructions Start: 05-Aug-2019 Instruction Type: Provider Instructions for Treatment Indication: BMI 31.0-31.9,adult How to access health information online Start: 27-Jul-2019 Instruction Type: Patient Education Indication: BMI 31.0-31.9,adult How to access health information online - Detail Start: Jul-2019 Instruction Type: Patient Education Indication: BMI 31.0-31.9,adult Patient Instructions Start: 27-Jul-2019 Instruction Type: Provider Instructions for Treatment Indication: Hypertension How to access health information online - Detail Start: Mar-2019 Instruction Type: Patient Education Indication: Smoker Patient Instructions Start: 23-Mar-2019 Instruction Type: Provider Instructions for Treatment Indication: Smoker obesity counseling Start: 13-Nov-2018 Instruction Type: Laila aguilera Instructions for Treatment Indication: Pulmonary HTN cardiovascular counseling Start: 13-Nov-2018 Instruction T ype: Provider Instructions for Treatment Indication: Hypertension How to access health information online Start: 11-Nov-2018 Instruction Type: Patient Education Indication: BMI 31.0-31.9,adult How to access health information online - Detail Start: Oct-2018 Instruction Type: Patient Education Indication: BMI 31.0-31.9,adult Patient Instructions Start: 11-Nov-2018 Instruction Type: Provider Instructions for Treatment Indication: BMI 31.0-31.9,adult How to access health information online Start: 29-Oct-2018 Instruction Type: Patient Education Indication: Smoker How to access health information online - Detail Start: Instruction Type: Patient Education Indication: Smoker Patient Instructions Start: 29-Oct-2018 Instruction Type: Provider Instructions for Treatment Indication: Smoker How to access health information online Start: 10-Oct-2018 Instruction Type: Patient Education Indication: Smoker How to access health information online - Detail Start: Sep-2018 Instruction Type: Patient Education Indication: Smoker Patient Instructions Start: 10-Oct-2018 Instruction Type: Provider Instructions for Treatment Indication: Smoker How to access health information online Start: 03-Oct-2018 Instruction Type: Patient Education Indication: Smoker How to access health information online - Detail Start: Instruction Type: Patient Education Indication: Smoker Patient Instructions Start: 03-Oct-2018 Instruction Type: Provider Instructions for Treatment Indication: Smoker How to access health information online Start: 14-Apr-2018 Instruction Type: Patient Education Indication: Smoker How to access health information online - Detail Start: Mar-2018 Instruction Type: Patient Education Indication: Smoker Patient Instructions Start: 14-Apr-2018 Instruction Type: Provider Instructions for Treatment Indication: Smoker How to access health information online Start: 14-Mar-2018 Instruction Type: Patient Education Indication: Chest pain, atypical How to access health information online - Detail Start: Mar-2018 Instruction Type: Patient Education Indication: Chest pain, atypical Patient Instructions Start: 14-Mar-2018 Instruction Type: Provider Instructions for Treatment Indication: Chest pain, atypical How to access health information online Start: 26-Feb-2018 Instruction Type: Patient Education Indication: Smoker How to access health information online - Detail Start: Jan-2018 Instruction Type: Patient Education Indication: Smoker Patient Instructions Start: 26-Feb-2018 Instruction Type: Provider Instructions for Treatment Indication: Smoker How to access health information online Start: 25-Feb-2018 Instruction Type: Patient Education Indication: Smoker How to access health information online - Detail Start: Jan-2018 Instruction Type: Patient Education Indication: Smoker Patient Instructions Start: 25-Feb-2018 Instruction Type: Provider Instructions for Treatment Indication: Smoker Name Dates Details How to access health information online Start: 04-Apr-2020 Instruction Type: Patient Education Indication: Smoker How to access health information online - Detail Start: Instruction Type: Patient Education Indication: Smoker Patient Instructions Start: 04-Apr-2020 Instruction Type: Provider Instructions for Treatment Indication: Smoker How to access health information online Start: 07-Dec-2019 Instruction Type: Patient Education Indication: Smoker How to access health information online - Detail Start: Instruction Type: Patient Education Indication: Smoker Patient Instructions Start: 07-Dec-2019 Instruction Type: Provider Instructions for Treatment Indication: Smoker obesity counseling Start: 16-Nov-2019 Instruction Type: Laila aguilera Instructions for Treatment Indication: Hypertension How to access health information online - Detail Start: Oct-2019 Instruction Type: Patient Education Indication: BMI 31.0-31.9,adult How to access health information online Start: 16-Nov-2019 Instruction Type: Patient Education Indication: BMI 31.0-31.9,adult Patient Instructions Start: 16-Nov-2019 Instruction Type: Provider Instructions for Treatment Indication: BMI 31.0-31.9,adult How to access health information online Start: 05-Oct-2019 Instruction Type: Patient Education Indication: BMI 31.0-31.9,adult How to access health information online - Detail Start: Instruction Type: Patient Education Indication: BMI 31.0-31.9,adult Patient Instructions Start: 05-Oct-2019 Instruction Type: Provider Instructions for Treatment Indication: BMI 31.0-31.9,adult How to access health information online Start: 21-Aug-2019 Instruction Type: Patient Education Indication: UTI symptoms How to access health information online - Detail Start: Aug-2019 Instruction Type: Patient Education Indication: UTI symptoms Patient Instructions Start: 21-Aug-2019 Instruction Type: Provider Instructions for Treatment Indication: Smoker How to access health information online Start: 05-Aug-2019 Instruction Type: Patient Education Indication: BMI 31.0-31.9,adult How to access health information online - Detail Start: Instruction Type: Patient Education Indication: BMI 31.0-31.9,adult Patient Instructions Start: 05-Aug-2019 Instruction Type: Provider Instructions for Treatment Indication: BMI 31.0-31.9,adult How to access health information online Start: 27-Jul-2019 Instruction Type: Patient Education Indication: BMI 31.0-31.9,adult How to access health information online - Detail Start: Jul-2019 Instruction Type: Patient Education Indication: BMI 31.0-31.9,adult Patient Instructions Start: 27-Jul-2019 Instruction Type: Provider Instructions for Treatment Indication: Hypertension How to access health information online - Detail Start: Mar-2019 Instruction Type: Patient Education Indication: Smoker Patient Instructions Start: 23-Mar-2019 Instruction Type: Provider Instructions for Treatment Indication: Smoker obesity counseling Start: 13-Nov-2018 Instruction Type: Laila aguilera Instructions for Treatment Indication: Pulmonary HTN cardiovascular counseling Start: 13-Nov-2018 Instruction T ype: Provider Instructions for Treatment Indication: Hypertension How to access health information online Start: 11-Nov-2018 Instruction Type: Patient Education Indication: BMI 31.0-31.9,adult How to access health information online - Detail Start: Oct-2018 Instruction Type: Patient Education Indication: BMI 31.0-31.9,adult Patient Instructions Start: 11-Nov-2018 Instruction Type: Provider Instructions for Treatment Indication: BMI 31.0-31.9,adult How to access health information online Start: 29-Oct-2018 Instruction Type: Patient Education Indication: Smoker How to access health information online - Detail Start: Instruction Type: Patient Education Indication: Smoker Patient Instructions Start: 29-Oct-2018 Instruction Type: Provider Instructions for Treatment Indication: Smoker How to access health information online Start: 10-Oct-2018 Instruction Type: Patient Education Indication: Smoker How to access health information online - Detail Start: Sep-2018 Instruction Type: Patient Education Indication: Smoker Patient Instructions Start: 10-Oct-2018 Instruction Type: Provider Instructions for Treatment Indication: Smoker How to access health information online Start: 03-Oct-2018 Instruction Type: Patient Education Indication: Smoker How to access health information online - Detail Start: Instruction Type: Patient Education Indication: Smoker Patient Instructions Start: 03-Oct-2018 Instruction Type: Provider Instructions for Treatment Indication: Smoker How to access health information online Start: 14-Apr-2018 Instruction Type: Patient Education Indication: Smoker How to access health information online - Detail Start: Mar-2018 Instruction Type: Patient Education Indication: Smoker Patient Instructions Start: 14-Apr-2018 Instruction Type: Provider Instructions for Treatment Indication: Smoker How to access health information online Start: 14-Mar-2018 Instruction Type: Patient Education Indication: Chest pain, atypical How to access health information online - Detail Start: Mar-2018 Instruction Type: Patient Education Indication: Chest pain, atypical Patient Instructions Start: 14-Mar-2018 Instruction Type: Provider Instructions for Treatment Indication: Chest pain, atypical How to access health information online Start: 26-Feb-2018 Instruction Type: Patient Education Indication: Smoker How to access health information online - Detail Start: Jan-2018 Instruction Type: Patient Education Indication: Smoker Patient Instructions Start: 26-Feb-2018 Instruction Type: Provider Instructions for Treatment Indication: Smoker How to access health information online Start: 25-Feb-2018 Instruction Type: Patient Education Indication: Smoker How to access health information online - Detail Start: Jan-2018 Instruction Type: Patient Education Indication: Smoker Patient Instructions Start: 25-Feb-2018 Instruction Type: Provider Instructions for Treatment Indication: Smoker Summary Purpose Advance Directives No Advanced Directives Records FoundNo Advanced Directives Records Found Additional Source Comments FOR RECORDS PERTAINING TO PATIENTS WHO ARE OR HAVE BEEN ENROLLED IN A CHEMICAL DEPENDENCY/SUBSTANCE ABUSE PROGRAM, SOME INFORMATION MAY BE OMITTED. This clinical summary was aggregated from multiple sources. Caution should be exercised in using it in the provision of clinical care. This summary normalizes information from multiple sources, and as a consequence, information in this document may materially changethe coding, format and clinical context of patient data. In addition, data may be omittedin some cases. CLINICAL DECISIONS SHOULD BE BASED ON THE PRIMARY CLINICAL RECORDS. [facility] provides no warranty or guarantee of the accuracy or completeness of information in this document. UNRECOGNIZED CONTENT PROVIDED BELOW FOR UNRECOGNIZED SECTION INFORMATION SOURCE DATE CREATED AUTHOR AUTHOR'S ORGANIZATIO N 11/04/2018 [employer] [facility] DATE CREATED AUTHOR AUTHOR'S ORGANIZATIO N 12/23/2018 [facility]
== END | disposition home or self-care (01) ==
LOC: OPBD 14:25
PROVIDERS: PCP Internal Medicine; Referring Provider Internal Medicine; Visit Provider Internal Medicine
DX: Z78.0 Asymptomatic menopausal state (principal); Z12.31 Encounter for screening mammogram for malignant neoplasm of breast
CPT/HCPCS: 77063; 77067; 77080

== ENCOUNTER 2020-09-23 15:42 | Outpatient (RCR) | payer MEDICARE, SELFPAY ==
[2020-05-11 10:03] VITALS: BMI 34.2
== END 2020-12-06 23:59 ==
LOC: IMMUN 15:42
PROVIDERS: PCP Internal Medicine; Visit Provider Family Medicine
DX: Z23 Encounter for immunization (principal)
CPT/HCPCS: 0001A; 0002A; 91300

== ENCOUNTER → 2020-10-25 09:32 | Outpatient (CLI) | payer MEDICARE, SELFPAY ==
[2020-05-11 10:03] VITALS: BMI 34.2
--- NOTE | 2020-10-25 09:34 | CDU_ITS ---
Reason For Study: carotid stenosis Rt. Velocities/BP Lt. Velocities/BP Prox CCA 68.2/18.6 cm/sec. Prox CCA 83.8/21.2 cm/sec. Mid CCA 78.6/20.0 cm/sec. Mid CCA 68.2/21.2 cm/sec. Dist CCA 73.4/21.3 cm/sec. Dist CCA 70.8/22.6 cm/sec. Prox ICA 87.8/21.3 cm/sec. Prox ICA 60.4/13.4 cm/sec. Mid ICA 100.8/25.2 cm/sec. Mid ICA 72.1/25.2 cm/sec. Dist ICA 102.1/35.6 cm/sec. Dist ICA 82.8/35.1 cm/sec. Rt. ICA/CCA = 1.3. Lt. ICA/CCA = 1.2. Prox ECA 117.8/21.3 cm/sec. Prox ECA 90.3/17.3 cm/sec. Rt. Vert. 89.1/20.0 cm/sec. Lt. Vert. 34.4/14.6 cm/sec. Right Extracranial There is homogeneous, smooth atherosclerotic plaque noted in the right common carotid artery. There is homogeneous, smooth atherosclerotic plaque noted in the right internal carotid artery. There is intimal thickening but no significant atherosclerotic plaque noted in the right external carotid artery. Antegrade flow is noted in the right vertebral artery. Left Extracranial There is homogeneous, smooth atherosclerotic plaque noted in the left common carotid artery. There is heterogeneous, irregular atherosclerotic plaque noted in the left internal carotid artery. There is intimal thickening but no significant atherosclerotic plaque noted in the left external carotid artery. Antegrade flow is noted in the left vertebral artery. Procedure Carotid Duplex [id number]. This is a Carotid Duplex examination using B-mode, color flow and specral Doppler. The exam was diagnostic. Exam performed in department. VL/Carotid Duplex Ultrasound Interpretation Summary Smooth plaque at the proximal right internal carotid artery with less than 50% stenosis Less than 50% stenosis right external carotid artery Minimal irregular plaque at the proximal left internal carotid artery with less than 50% stenosis Less than 50% stenosis left external carotid artery Patent and antegrade vertebrals bilaterally No change from March 07, 2018 Ordering Physician: Shaneka Anderson Performed By: Easton Sandoval RVT
== END ==
PROVIDERS: PCP Internal Medicine; Referring Provider Internal Medicine; Visit Provider Internal Medicine
DX: I65.23 Occlusion and stenosis of bilateral carotid arteries (principal)
CPT/HCPCS: 93880

== ENCOUNTER 2021-10-14 07:41 | Outpatient (CLI) | payer MEDICARE, SELFPAY ==
--- NOTE | 2021-10-14 07:55 | CT_ITS ---
EXAM: CT CHEST, LUNG CANCER SCREENING WITHOUT INTRAVENOUS CONTRAST : 1945 CLINICAL INDICATION: COPD, HX TOBACCO USE TECHNIQUE: Helically acquired images were obtained of the chest without intravenous contrast using low dose (LDCT) lung cancer screening protocol. This CT exam was performed using one or more of the following dose reduction techniques: automated exposure control, adjustment of the mA and/or kV according to patient size, and/or use of iterative reconstruction technique. This report was created using [employer] report generation technology. COMPARISON: None. FINDINGS: LUNGS AND PLEURAL SPACES: There is minimal scarring in the right middle lobe. No mass. No pleural effusion or thickening. No pneumothorax. HEART: There are coronary artery calcifications present. Heart size is normal. No pericardial effusion. MEDIASTINUM: Unremarkable. No mediastinal or hilar adenopathy. Esophagus is unremarkable. No hiatal hernia. THYROID: Unremarkable. No thyroid lesions. BONES/JOINTS: Unremarkable. No suspicious lytic or blastic abnormality. VASCULATURE: Unremarkable. Thoracic aorta is non-dilated. LYMPH NODES: Unremarkable. No enlarged lymph nodes. OTHER FINDINGS: CT/Low Dose CT Lung Screening IMPRESSION: 1. Minimal scarring in the right middle lobe. There is no acute pulmonary abnormality. No pulmonary nodules are identified. 2. Lung RADS category 1. Individualized dose optimization techniques were used for this CT. at 1656 Reported and signed by: Ciro Grant MD Electronically Signed: Ciro Grant MD at 16:54 EDT ,
== END 2021-10-14 23:59 | disposition home or self-care (01) ==
PROVIDERS: PCP Internal Medicine; Visit Provider Internal Medicine
DX: J44.9 Chronic obstructive pulmonary disease, unspecified (principal); Z87.891 Personal history of nicotine dependence
CPT/HCPCS: 71271

== ENCOUNTER → 2021-11-07 | Outpatient (CLI) | payer MEDICARE, SELFPAY ==
--- NOTE | 2021-11-07 13:48 | ECHOD_ITS ---
Reason For Study: PULMONARY HTN Procedure This was a 2D Doppler, Color Flow transthoracic echocardiogram. The exam was of adequate technical quality. Exam performed in department. Left Ventricle Normal LV size. Left ventricular systolic function is normal. The estimated ejection fraction is 70 %. Diastolic function is indeterminate. No regional wall motion abnormalities noted. Right Ventricle Normal RV size. Normal systolic function. Atria Normal left atrium. Normal right atrium. No doppler evidence for ASD. Mitral Valve There is mild mitral annular calcification. Extension of the mitral annular calcification on base of the posterior mitral valve leaflet. Trivial mitral valve insufficiency. Tricuspid Valve Normal tricuspid valve. Trivial tricuspid valve insufficiency. Unable to estimate RV systolic pressure due to insufficient tricuspid regurgitant envelope. Aortic Valve Trisinus/trileaflet aortic valve. Normal aortic valve. Pulmonic Valve The pulmonic valve is not well visualized. Great Vessels Normal sized aortic root. Pericardium/Pleural No pericardial effusion. MMode/2D Measurements & Calculations LVIDd: 3.4 cm IVSd: 1.1 cm Ao root diam: 2.9 cm LVIDs: 2.3 cm LVPWd: 1.1 cm RVDd: 2.4 cm FS: 30.8 % LAV(MOD-bp): 24.8 ml LVAd ap4: 18.4 cm2 SV(MOD-sp4): 30.9 ml LAV(MOD-bp) Indexed: 14.0 ml/m2 LVLd ap4: 6.4 cm LAV(MOD-sp2): 26.8 ml EDV(MOD-sp4): 44.1 ml LAV(MOD-sp4): 21.4 ml EDV(sp4-el): 45.2 ml LVAs ap4: 9.2 cm2 LVLs ap4: 5.4 cm ESV(MOD-sp4): 13.2 ml ESV(sp4-el): 13.4 ml EF(MOD-sp4): 70.1 % EF(sp4-el): 70.4 % SV(sp4-el): 31.8 ml LA A4 area: 10.6 cm2 LA dimension(2D): 2.8 cm RA A4 area: 8.5 cm2 Time Measurements MV dec time: 0.27 sec Doppler Measurements & Calculations MV E max aleksey: 83.1 cm/sec Lat Peak E' Aleksey: 6.9 cm/sec Med Peak E' Aleksey: 6.8 cm/sec MV A max aleksey: 105.3 cm/sec E/E' lat: 12.0 E/E' med: 12.2 MV E/A: 0.79 Ao V2 max: 131.0 cm/sec LV V1 max: 125.2 cm/sec PA V2 max: 91.6 cm/sec Ao max P.9 mmHg LV V1 max P.3 mmHg ECHO/Echo Complete Interpretation Summary Left ventricular systolic function is normal. The estimated ejection fraction is 70 %. There is mild mitral annular calcification. Extension of the mitral annular calcification on base of the posterior mitral v alve leaflet. Trivial mitral valve insufficiency. Trivial tricuspid valve insufficiency. Unable to estimate RV systolic pressure due to insufficient tricuspid regurgita nt envelope. Diastolic function is indeterminate. Ordering Physician: Shaneka Anderson Referring Physician: Shaneka Anderson Performed By: Vidya Jones RDCS
== END | disposition home or self-care (01) ==
PROVIDERS: PCP Internal Medicine; Referring Provider Internal Medicine; Visit Provider Internal Medicine
DX: I27.20 Pulmonary hypertension, unspecified (principal)
CPT/HCPCS: 93306

== ENCOUNTER → 2021-11-15 | Outpatient (CLI) | payer MEDICARE, SELFPAY ==
--- NOTE | 2021-11-15 10:51 | VDLE_ITS ---
Reason For Study: Lt Leg Swelling RIGHT LEFT CFV is compressible, spontaneous, phasic, GSV is normal. competent and demonstrates normal CFV is compressible, spontaneous, phasic, augmentation. competent, and demonstrates normal Procedure augmentation. This is a venous duplex using B-mode, color FV is compressible, spontaneous, phasic, flow and spectral Doppler. competent and demonstrates normal Exam performed in department. augmentation. A preliminary report was called and/or faxed POP V is compressible, spontaneous, phasic, to Dr. Murphy. competent and demonstrates normal augmentation. T/P Trunk is compressible. PTV is compressible. LT PerV is compressible. Hypoechoic, non vascular structure noted Lt Pop Fossa measuring 1.06cm x 3.89cm. VL/Venous Duplex US, Unilateral Interpretation Summary Deep veins of the left lower extremity are patent and compressible segmentally. There is no evidence of left lower extremity deep vein thrombosis. Valvular competence appears intac t within the proximal deep venous system on the left . The left great saphenous vein appears patent a nd compressible segmentally. A non-vascular, hypoechoic structure is noted in the left poplitea l space, measuring 1.06 cm x 3.89 cm. This probably represents a popliteal cyst. Clinical correlat ion is advised. Ordering Physician: Elda Murphy Referring Physician: Shaneka Anderson Performed By: Jenna Alvarez, LITACS, RVT
== END | disposition home or self-care (01) ==
LOC: CVS 10:47
PROVIDERS: PCP Internal Medicine; Visit Provider Internal Medicine
DX: M79.89 Other specified soft tissue disorders (principal)
CPT/HCPCS: 93971

== ENCOUNTER → 2022-02-08 | Outpatient (CLI) | payer MEDICARE, SELFPAY ==
--- NOTE | 2022-02-08 12:33 | US_ITS ---
INDICATION: ACUTE RENAL INSUFF. EXAMINATION: US Kidney(s) complete (eg, kidneys and bladder) TECHNIQUE: Marroquin scale and color doppler images were obtained of the kidneys. COMPARISON: Renal ultrasound from 03/05/2018. FINDINGS: RIGHT KIDNEY: Right kidney is normal echotexture and measures 8.5 x 4.6 x 3.6 cm with cortical thickness of 1.3 cm. There is no hydronephrosis. No shadowing calculus, focal lesion or perinephric collection is demonstrated. LEFT KIDNEY: Left kidney is normal echotexture and measures 9.1 x 3.8 x 4.4 cm with cortical thickness of 1.2 cm. There is no hydronephrosis. No shadowing calculus, focal lesion or perinephric collection is demonstrated. URINARY BLADDER: Incompletely distended urinary bladder measures 25 mL volume. No intraluminal filling defects demonstrated. Ureteral jets are not visualized. US/Kidney and Bladder IMPRESSION: Negative renal ultrasound. Electronically Signed: Celio Conner MD at 6:00 EDT ,
[2022-02-08 13:03] LABS: Color, Urine Yellow (Yellow); Glucose, Dipstick Normal (Normal); Ketone-Dipstick Negative (Negative); Leukocyte Esterase-Dipstick Negative /ul (Negative); Nitrite-Dipstick Negative (Negative); Occult Blood-Urine 10 /ul (Negative); Protein-Dipstick Negative (Negative); Urine Bilirubin Dipstick Negative (Negative); Urine Clarity Sl. Cloudy (Clear); Urine Urobilinogen Normal (Normal)
[2022-02-08 13:32] LABS: Anion Gap 5 (5-15); BUN 10 mg/dL (7-18); BUN/Creat Ratio 10.5 RATIO (10-20); Chloride 102 mmol/L (98-107); Creatinine, Serum 0.95 mg/dL (0.55-1.02); EST Glomerular Filtration Rate 60 mL/min (>60); Est Glom Filt Rate - Afr Amer 73 mL/min (>60); Glucose 107 mg/dL (74-106); Potassium 4.3 mmol/L (3.5-5.1); Sodium Level 138 mmol/L (136-145)
== END | disposition home or self-care (01) ==
PROVIDERS: PCP Internal Medicine; Referring Provider Internal Medicine; Visit Provider Internal Medicine
DX: N28.9 Disorder of kidney and ureter, unspecified (principal)
CPT/HCPCS: 36415; 76770; 80048; 81002